=== PATIENT | male | born 1935 | race Caucasian/White ===

== ENCOUNTER → 2016-10-20 | Outpatient (CLI) | payer MEDICARE ==
[2016-10-20 13:05] LABS: AUTOMATED NEUTROPHIL # 5.3 TH/MM3 (1.8-7.7); BASOPHIL # 0.1 TH/MM3 (0-0.2); BASOPHIL % 0.6 % (0.0-2.0); EOSINOPHIL # 0.3 TH/MM3 (0-0.4); EOSINOPHIL % 3.8 % (0.0-4.0); HEMATOCRIT 32.4 % (39.0-51.0); HEMO FLAGS DIFF FINAL; MEAN CELL VOLUME 87.2 FL (80.0-100.0); MEAN CORPUSCULAR HEMOGLOBIN 29.5 PG (27.0-34.0); MEAN CORPUSCULAR HGB CONC 33.8 % (32.0-36.0); MONO % 8.5 % (0.0-8.0); NEUT % 63.1 % (16.0-70.0); PLATELET COUNT 172 TH/MM3 (150-450); RED BLOOD COUNT 3.72 MIL/MM3 (4.50-5.90); RED CELL DISTRIBUTION WIDTH 15.1 % (11.6-17.2); WHITE BLOOD COUNT 8.4 TH/MM3 (4.0-11.0)
[2016-10-20 13:18] LABS: ANION GAP 4 MEQ/L (5-15); AST (GOT) 26 U/L (15-37); BICARBONATE 31.1 MEQ/L (21.0-32.0); BLOOD UREA NITROGEN 17 MG/DL (7-18); CHLORIDE 105 MEQ/L (98-107); GLOMERULAR FILTRATION RATE 69 ML/MIN (>89); GLUCOSE,FASTING 89 MG/DL (74-99); POTASSIUM 4.7 MEQ/L (3.5-5.1); SODIUM (NA) 140 MEQ/L (136-145)
[2016-10-20 13:27] LABS: ALKALINE PHOSPHATASE 134 U/L (45-117); ALT (GPT) 19 U/L (12-78); HDL CHOLESTEROL 51.9 MG/DL (40.0-60.0); LDL CHOLESTEROL 40 MG/DL (0-99); TOTAL BILIRUBIN ADULT 0.6 MG/DL (0.2-1.0)
== END ==
LOC: PLAB 10:20
PROVIDERS: ATTEND Family Medicine
DX: I10 Essential (primary) hypertension (principal); E78.2 Mixed hyperlipidemia; D64.9 Anemia, unspecified
CPT/HCPCS: 36415; 80053; 80061; 85025

== ENCOUNTER → 2017-04-20 | Outpatient (CLI) | payer MEDICARE ==
[2017-04-20 12:43] LABS: AUTOMATED NEUTROPHIL # 5.3 TH/MM3 (1.8-7.7); BASOPHIL # 0.1 TH/MM3 (0-0.2); BASOPHIL % 0.7 % (0.0-2.0); EOSINOPHIL # 0.3 TH/MM3 (0-0.4); EOSINOPHIL % 3.8 % (0.0-4.0); HEMATOCRIT 27.2 % (39.0-51.0); HEMO FLAGS DIFF FINAL; LYMPH % 22.8 % (9.0-44.0); MEAN CORPUSCULAR HEMOGLOBIN 26.3 PG (27.0-34.0); MEAN CORPUSCULAR HGB CONC 32.9 % (32.0-36.0); MONO % 10.8 % (0.0-8.0); NEUT % 61.9 % (16.0-70.0); PLATELET COUNT 191 TH/MM3 (150-450); RED CELL DISTRIBUTION WIDTH 15.4 % (11.6-17.2); WHITE BLOOD COUNT 8.6 TH/MM3 (4.0-11.0)
[2017-04-20 12:53] LABS: ANION GAP 6 MEQ/L (5-15); BICARBONATE 26.6 MEQ/L (21.0-32.0); BLOOD UREA NITROGEN 17 MG/DL (7-18); CHLORIDE 104 MEQ/L (98-107); GLOMERULAR FILTRATION RATE 72 ML/MIN (>89); GLUCOSE,FASTING 87 MG/DL (74-99); POTASSIUM 4.8 MEQ/L (3.5-5.1); SODIUM (NA) 137 MEQ/L (136-145)
[2017-04-20 12:57] LABS: ALKALINE PHOSPHATASE 117 U/L (45-117); ALT (GPT) 17 U/L (12-78); AST (GOT) 29 U/L (15-37); HDL CHOLESTEROL 47.8 MG/DL (40.0-60.0); LDL CHOLESTEROL 22 MG/DL (0-99); TOTAL BILIRUBIN ADULT 0.5 MG/DL (0.2-1.0)
== END ==
LOC: PLAB 10:29
PROVIDERS: ATTEND Family Medicine
DX: E78.2 Mixed hyperlipidemia (principal); I10 Essential (primary) hypertension; R79.89 Other specified abnormal findings of blood chemistry; D64.9 Anemia, unspecified
CPT/HCPCS: 36415; 80053; 80061; 85025

== ENCOUNTER → 2017-05-04 | Outpatient (CLI) | payer MEDICARE ==
[2017-05-04 13:31] LABS: AUTOMATED NEUTROPHIL # 4.6 TH/MM3 (1.8-7.7); BASOPHIL # 0.1 TH/MM3 (0-0.2); BASOPHIL % 0.7 % (0.0-2.0); EOSINOPHIL # 0.2 TH/MM3 (0-0.4); EOSINOPHIL % 3.2 % (0.0-4.0); HEMATOCRIT 28.5 % (39.0-51.0); HEMO FLAGS DIFF FINAL; LYMPH % 24.2 % (9.0-44.0); LYMPHOCYTE # 1.8 TH/MM3 (1.0-4.8); MEAN CORPUSCULAR HEMOGLOBIN 25.2 PG (27.0-34.0); MEAN CORPUSCULAR HGB CONC 31.5 % (32.0-36.0); MONO % 10.2 % (0.0-8.0); NEUT % 61.7 % (16.0-70.0); PLATELET COUNT 186 TH/MM3 (150-450); RED BLOOD COUNT 3.56 MIL/MM3 (4.50-5.90); RED CELL DISTRIBUTION WIDTH 15.9 % (11.6-17.2); WHITE BLOOD COUNT 7.5 TH/MM3 (4.0-11.0)
== END ==
LOC: PLAB 10:24
PROVIDERS: ATTEND Family Medicine
DX: D64.9 Anemia, unspecified (principal)
CPT/HCPCS: 36415; 85025

== ENCOUNTER → 2017-05-25 | Outpatient (CLI) | payer MEDICARE ==
[2017-05-25 16:39] LABS: AUTOMATED NEUTROPHIL # 5.4 TH/MM3 (1.8-7.7); BASOPHIL # 0.1 TH/MM3 (0-0.2); BASOPHIL % 0.8 % (0.0-2.0); EOSINOPHIL # 0.3 TH/MM3 (0-0.4); EOSINOPHIL % 3.3 % (0.0-4.0); HEMATOCRIT 27.2 % (39.0-51.0); HEMOGLOBIN 8.6 GM/DL (13.0-17.0); LYMPH % 21.4 % (9.0-44.0); LYMPHOCYTE # 1.8 TH/MM3 (1.0-4.8); MEAN CELL VOLUME 79.3 FL (80.0-100.0); MEAN CORPUSCULAR HEMOGLOBIN 25.1 PG (27.0-34.0); MEAN CORPUSCULAR HGB CONC 31.6 % (32.0-36.0); MEAN PLATELET VOLUME 8.6 FL (7.0-11.0); MONO % 9.6 % (0.0-8.0); MONOCYTE # 0.8 TH/MM3 (0-0.9); NEUT % 64.9 % (16.0-70.0); PLATELET COUNT 185 TH/MM3 (150-450); RED BLOOD COUNT 3.43 MIL/MM3 (4.50-5.90); RED CELL DISTRIBUTION WIDTH 16.4 % (11.6-17.2); WHITE BLOOD COUNT 8.4 TH/MM3 (4.0-11.0)
== END ==
LOC: PLAB 11:29
PROVIDERS: ATTEND Family Medicine
DX: D64.9 Anemia, unspecified (principal)
CPT/HCPCS: 36415; 85025

== ENCOUNTER → 2017-06-08 | Outpatient (CLI) | payer MEDICARE ==
[2017-06-08 13:31] LABS: AUTOMATED NEUTROPHIL # 5.2 TH/MM3 (1.8-7.7); BASOPHIL # 0.1 TH/MM3 (0-0.2); BASOPHIL % 0.7 % (0.0-2.0); EOSINOPHIL # 0.4 TH/MM3 (0-0.4); EOSINOPHIL % 4.9 % (0.0-4.0); HEMATOCRIT 29.4 % (39.0-51.0); HEMOGLOBIN 9.3 GM/DL (13.0-17.0); LYMPH % 21.2 % (9.0-44.0); LYMPHOCYTE # 1.7 TH/MM3 (1.0-4.8); MEAN CELL VOLUME 79.8 FL (80.0-100.0); MEAN CORPUSCULAR HEMOGLOBIN 25.2 PG (27.0-34.0); MEAN CORPUSCULAR HGB CONC 31.6 % (32.0-36.0); MEAN PLATELET VOLUME 8.8 FL (7.0-11.0); MONO % 8.7 % (0.0-8.0); MONOCYTE # 0.7 TH/MM3 (0-0.9); NEUT % 64.5 % (16.0-70.0); PLATELET COUNT 180 TH/MM3 (150-450); RED BLOOD COUNT 3.69 MIL/MM3 (4.50-5.90); RED CELL DISTRIBUTION WIDTH 17.3 % (11.6-17.2)
== END ==
LOC: PLAB 11:21
PROVIDERS: ATTEND Physician Assistant Medical
DX: R19.5 Other fecal abnormalities (principal)
CPT/HCPCS: 36415; 85025

== ENCOUNTER → 2017-06-22 | Outpatient (CLI) | payer MEDICARE ==
[2017-06-22 13:39] LABS: CREATININE 1.06 MG/DL (0.60-1.30)
== END ==
LOC: PLAB 10:50
PROVIDERS: ATTEND Internal Medicine Gastroenterology
DX: I86.4 Gastric varices (principal)
CPT/HCPCS: 36415; 82565; 84520

== ENCOUNTER → 2017-07-30 | Outpatient (CLI) | payer MEDICARE ==
[2017-07-30 17:35] LABS: AUTOMATED NEUTROPHIL # 5.5 TH/MM3 (1.8-7.7); BASOPHIL # 0.1 TH/MM3 (0-0.2); BASOPHIL % 0.9 % (0.0-2.0); EOSINOPHIL # 0.3 TH/MM3 (0-0.4); EOSINOPHIL % 3.4 % (0.0-4.0); HEMATOCRIT 30.7 % (39.0-51.0); HEMOGLOBIN 9.8 GM/DL (13.0-17.0); LYMPH % 20.6 % (9.0-44.0); LYMPHOCYTE # 1.7 TH/MM3 (1.0-4.8); MEAN CELL VOLUME 80.6 FL (80.0-100.0); MEAN CORPUSCULAR HEMOGLOBIN 25.8 PG (27.0-34.0); MEAN PLATELET VOLUME 8.6 FL (7.0-11.0); MONOCYTE # 0.7 TH/MM3 (0-0.9); NEUT % 66.1 % (16.0-70.0); PLATELET COUNT 182 TH/MM3 (150-450); RED BLOOD COUNT 3.81 MIL/MM3 (4.50-5.90); RED CELL DISTRIBUTION WIDTH 19.2 % (11.6-17.2); WHITE BLOOD COUNT 8.3 TH/MM3 (4.0-11.0)
[2017-07-30 17:46] LABS: IRON (FE) 38 MCG/DL (65-175)
[2017-07-30 17:53] LABS: % SATURATION IRON PROFILE 9.1 % (20-50); FERRITIN 18 NG/ML (26-388); TOTAL IRON BINDING CAPACITY 416 MCG/DL (250-450)
== END ==
LOC: PLAB 14:39
PROVIDERS: ATTEND Family Medicine
DX: D64.9 Anemia, unspecified (principal)
CPT/HCPCS: 36415; 82728; 83540; 83550; 85025

== ENCOUNTER 2018-02-18 12:49 | Inpatient (IN) ==
[2018-02-18 14:50] LABS: Chloride 101 meq/L (98-107); Potassium 4.7 meq/L (3.5-5.1); Sodium 136 meq/L (136-145)
[2018-02-18 14:53] LABS: Baso # (Auto) 0.1 th/mm3 (0.0-0.2); Baso % (Auto) 0.6 % (0.0-2.0); Eos % (Auto) 0.2 % (0.0-4.0); Hematocrit 49.9 % (39.0-51.0); Hemoglobin 16.6 gm/dL (13.0-17.0); Lymph # (Auto) 1.5 th/mm3 (1.0-4.8); Lymph % (Auto) 6.9 % (9.0-44.0); Mean Corpuscular HGB Conc 33.3 % (32.0-36.0); Mean Corpuscular Hemoglobin 34.2 pg (27.0-34.0); Mean Corpuscular Volume 102.6 fL (80.0-100.0); Mean Platelet Volume 9.4 fL (7.0-11.0); Mono # (Auto) 1.4 th/mm3 (0.0-0.9); Mono % (Auto) 6.7 % (0.0-8.0); Neut # (Auto) 18.1 th/mm3 (1.8-7.7); Neut % (Auto) 85.6 % (16.0-70.0); Platelet Count 215 th/mm3 (150-450); Red Blood Count 4.86 mil/mm3 (4.50-5.90); Red Cell Distribution Width 12.9 % (11.6-17.2); White Blood Count 21.1 th/mm3 (4.0-11.0)
[2018-02-18 14:54] LABS: Albumin 3.8 g/dL (3.4-5.0); Anion Gap 13 meq/L (5-15); Blood Urea Nitrogen 27 mg/dL (7-18); Calcium 9.2 mg/dL (8.5-10.1); Carbon Dioxide 22.4 meq/L (21.0-32.0); Glucose,Random 128 mg/dL (74-106)
[2018-02-18 14:57] LABS: Alanine Aminotransferase 83 U/L (12-78); Aspartate Aminotransferase 112 U/L (15-37); Glomerular Filtration Rate 42 mL/min (>89)
[2018-02-18 15:00] LABS: Alkaline Phosphatase 280 U/L (45-117); Lipase 3378 U/L (73-393)
[2018-02-18] MEDS ORDERED: Sod Chloride 0.9% Inj 1,000 ML IV.SIG SCH ×2 (15:45→20:15)
--- NOTE | 2018-02-18 16:08 | ED ---
HPI General Chief Complaint: Abdominal Pain Stated Complaint: Evac/Abd pain Time Seen by Provider: 02/18/18 13:17 Source: patient Mode of arrival: ambulatory Limitations: no limitations History of Present Illness HPI narrative: Patient presents with normal stools, mild nausea and intermittent migratory abdominal pain. No chills or fever. No frequency urgency or dysuria. Related Data Home Medications Medication Instructions Recorded Confirmed cyanocobalamin (vitamin B-12) 1,000 mcg PO DAILY 02/18/18 02/18/18 [Vitamin B-12] ferrous sulfate [iron] 325 mg PO DAILY 02/18/18 02/18/18 metoprolol tartrate 50 mg PO DAILY 02/18/18 02/18/18 probenecid 500 mg PO DAILY 02/18/18 02/18/18 ranitidine HCl 150 mg PO BID 02/18/18 02/18/18 Allergies Allergy/AdvReac Type Severity Reaction Status Date / Time penicillin G Allergy Intermediate Rash Verified 02/18/18 13:18 Review of Systems ROS: all other systems reviewed are negative [facility] Family History Family History Other Family history of cancer Social History Social History Substance History: No History of Abuse Second Hand Smoke Exposure: No Smoking Status: Never smoker How Often Do You Have a Drink Containing Alcohol: Never Recent Travel in [place] within the Last 8 Weeks: No Recent Out of Country Travel within the Last 8 Weeks: No Immunization History Tetanus Immunization: Unsure Hx Influenza Vaccine This Season: No Course Consultations Consultation #1: Discussed with DR Garcia ---regarding admission for sepsis, cholecystitis pancreatitis, r/o choledocholithisis, ascending cholangiitis -- and transfer to [facility] w/ GS and GI consult --per [facility] MD will admit to [facility] step down with ongoing IV antibiotics and will consult GI and GS. Initial Documented Vital Signs Temperature 97.8 F 02/18/18 13:13 Pulse Rate 99 H 02/18/18 13:13 Respiratory Rate 16 02/18/18 13:13 Blood Pressure 119/78 02/18/18 13:13 Pulse Oximetry 93 L 02/18/18 13:13 Last Documented Vital Signs Temperature 96 F L 02/21/18 06:49 Pulse Rate 108 H 02/21/18 06:49 Respiratory Rate 18 02/21/18 06:49 Blood Pressure 156/83 H 02/21/18 06:49 Pulse Oximetry 94 L 02/21/18 06:49 Medical Decision Making [facility] Narrative Medical decision making narrative: 82-year-old male presents to the emergency department for evaluation of abdominal pain. Symptoms reportedly began last evening. Patient denies any fever or chills. Patient did have emesis x6 yesterday but denies hematemesis or coffee-ground emesis or bilious emesis. Patient denies black or tarry or bloody stool or diarrhea. Patient complains of infraumbilical bilateral quadrant abdominal pain. Patient states symptoms are worsened by movement or by sitting upright but presently resting supine is minimal discomfort less than 5 increase to 5/10 in intensity with activity. Patient denies dysuria frequency urgency or decreased urine output. Patient states past medical history is significant for gouty arthritis dyslipidemia hypertension has history of gastric varices anemia takes iron and B12 supplements GERD prostate cancer status post prostatectomy prior SD and coronary artery stent. Patient denies tobacco use or alcohol use. Patient denies fever or chills. Due to persistent pain finally came to the emergency room for further evaluation. Upon arrival patient was assessed and lab work was collected and imaging study was performed GENERAL: Well-nourished, well-developed patient. SKIN: Focused skin assessment warm/dry. HEAD: Normocephalic. EYES: No scleral icterus. No injection or drainage. NECK: Supple, trachea midline. No JVD or lymphadenopathy. CARDIOVASCULAR: Regular rate and rhythm without murmurs, gallops, or rubs. RESPIRATORY: Breath sounds equal bilaterally. No accessory muscle use. GASTROINTESTINAL: Abdomen soft, non-tender, nondistended. MUSCULOSKELETAL: No cyanosis, or edema. BACK: Nontender without obvious deformity. No CVA tenderness. Mild reproducible tenderness to bilateral lower quadrants without guarding or rebound Review of laboratory work identifies white count of 21,000 with left shift acute kidney injury with renal insufficiency BUN and creatinine are elevated BUN 27 creatinine 1.6 bicarb is in normal range LFTs are elevated as well with hyperbilirubinemia, bilirubin total is 3.2 elevated transaminases AST 112 ALT 83 and lipase is elevated at 3378. Urinalysis is positive for white blood cells and bacteria cultures indicated; CT abdomen pelvis is remarkable for gallbladder wall thickening with mild pericholecystic fluid and inflammatory changes around the duodenum and pancreatic head small amount of ascites although per reading radiologist does not appear to have acute pancreatitis by imaging. No free air. Patient will require admission for sepsis cholecystitis rule out ascending cholangitis pancreatitis rule out choledocholithiasis and UTI with acute renal insufficiency acute kidney injury. Patient has been informed that he will be admitted blood cultures obtained lactic acid obtained patient given bolus of normal saline patient is allergic to penicillin therefore Azactam has been ordered along with Flagyl and vancomycin. Medical Screen Exam Complete: Yes Emergency Medical Condition: Yes Differential Diagnosis Differential Diagnosis: Abdominal pain, gastritis, peptic ulcer disease, pancreatitis, cholecystitis, diverticulitis, colitis, ischemic colitis, UTI Medical Records Medical records reviewed: Yes I reviewed the patient's medical records. Lab Data Lab results reviewed: Yes I reviewed the patient's lab results. Result diagrams: 02/20/18 06:13 02/20/18 12:53 Lab Results 02/18/18 02/18/18 02/18/18 Range/Units 14:30 14:30 16:24 CBC w Diff Auto diff final WBC 21.1 H (4.0-11.0) th/mm3 RBC 4.86 (4.50-5.90) mil/mm3 Hgb 16.6 (13.0-17.0) gm/dL Hct 49.9 (39.0-51.0) % MCV 102.6 H (80.0-100.0) fL MCH 34.2 H (27.0-34.0) pg MCHC 33.3 (32.0-36.0) % RDW 12.9 (11.6-17.2) % Plt Count 215 (150-450) th/mm3 MPV 9.4 (7.0-11.0) fL Neut % (Auto) 85.6 H (16.0-70.0) % Lymph % (Auto) 6.9 L (9.0-44.0) % [place] % (Auto) 6.7 (0.0-8.0) % Eos % (Auto) 0.2 (0.0-4.0) % Baso % (Auto) 0.6 (0.0-2.0) % Neut # (Auto) 18.1 H (1.8-7.7) th/mm3 Lymph # (Auto) 1.5 (1.0-4.8) th/mm3 [place] # (Auto) 1.4 H (0.0-0.9) th/mm3 Eos # (Auto) 0.0 (0.0-0.4) th/mm3 Baso # (Auto) 0.1 (0.0-0.2) th/mm3 WBC Differential . Differential Comment . PT (9.8-11.6) sec INR Ratio APTT (24.3-30.1) sec Sodium 136 (136-145) meq/L Potassium 4.7 (3.5-5.1) meq/L Chloride 101 (98-107) meq/L Carbon Dioxide 22.4 (21.0-32.0) meq/L Anion Gap 13 (5-15) meq/L BUN 27 H (7-18) mg/dL Creatinine 1.60 H (0.60-1.30) mg/dL Estimated GFR 42 L (>89) mL/min POC Glucose (68-110) mg/dl Random Glucose 128 H (74-106) mg/dL Lactic Acid (0.4-2.0) mmol/L Calcium 9.2 (8.5-10.1) mg/dL Magnesium (1.5-2.5) mg/dL Total Bilirubin 3.2 H (0.2-1.0) mg/dL AST 112 H (15-37) U/L ALT 83 H (12-78) U/L Alkaline Phosphatase 280 H (45-117) U/L Total Protein 7.0 (6.4-8.2) g/dL Albumin 3.8 (3.4-5.0) g/dL Lipase 3378 H (73-393) U/L Urine Color Yellow (Yellw/Straw) Urine Clarity Slight H (Clear) Urine pH 5.5 (5.0-8.5) Ur Specific [place] Greater/equal 1.030 (1.002-1.035) Urine Protein 30 H (Neg-Trace) mg/dL Urine Glucose (UA) Negative (Negative) mg/dL Urine Ketones Trace H (Negative) mg/dL Urine Occult Blood Trace (Negative) Urine Nitrate Negative (Negative) Urine Bilirubin Small H (Negative) Urine Ictotest Positive H (Negative) Urine Urobilinogen 1.0 (Less than 2) mg/dL Ur Leukocyte Esterase Negative (Negative) Urine RBC 0-3 (0-3) /hpf Urine WBC 9-20 H (0-5) /hpf Ur Squamous Epith Cells 6-10 H (0-5) /hpf Hyaline Casts 11-30 H (0-3) /lpf WBC Casts 4-10 H (None) /lpf Micro UA Comment Culture indicated Ur Microscopic Review Microscopic reviewed Urine Culture Comments Culture indicated Hepatitis A IgM Ab (Nonreactive) Hep Bs Antigen (Nonreactive) Hep B Core IgM Ab (Nonreactive) Hep C IgG Ab (Nonreactive) 02/18/18 02/19/18 02/19/18 Range/Units 20:55 04:19 04:19 CBC w Diff Auto diff final WBC 16.6 H (4.0-11.0) th/mm3 RBC 4.05 L (4.50-5.90) mil/mm3 Hgb 14.3 D (13.0-17.0) gm/dL Hct 41.4 (39.0-51.0) % MCV 102.1 H (80.0-100.0) fL MCH 35.3 H (27.0-34.0) pg MCHC 34.6 (32.0-36.0) % RDW 13.0 (11.6-17.2) % Plt Count 124 L D (150-450) th/mm3 MPV 9.3 (7.0-11.0) fL Neut % (Auto) 88.6 H (16.0-70.0) % Lymph % (Auto) 6.3 L (9.0-44.0) % [place] % (Auto) 4.6 (0.0-8.0) % Eos % (Auto) 0.1 (0.0-4.0) % Baso % (Auto) 0.4 (0.0-2.0) % Neut # (Auto) 14.8 H (1.8-7.7) th/mm3 Lymph # (Auto) 1.0 (1.0-4.8) th/mm3 [place] # (Auto) 0.8 (0.0-0.9) th/mm3 Eos # (Auto) 0.0 (0.0-0.4) th/mm3 Baso # (Auto) 0.1 (0.0-0.2) th/mm3 WBC Differential . Differential Comment . PT (9.8-11.6) sec INR Ratio APTT (24.3-30.1) sec Sodium 139 (136-145) meq/L Potassium 4.2 (3.5-5.1) meq/L Chloride 108 H (98-107) meq/L Carbon Dioxide 20.5 L (21.0-32.0) meq/L Anion Gap 11 (5-15) meq/L BUN 25 H (7-18) mg/dL Creatinine 0.86 (0.60-1.30) mg/dL Estimated GFR 85 L (>89) mL/min POC Glucose (68-110) mg/dl Random Glucose 106 (74-106) mg/dL Lactic Acid 2.3 H (0.4-2.0) mmol/L Calcium 7.7 L D (8.5-10.1) mg/dL Magnesium (1.5-2.5) mg/dL Total Bilirubin 2.2 H (0.2-1.0) mg/dL AST 74 H (15-37) U/L ALT 56 (12-78) U/L Alkaline Phosphatase 205 H (45-117) U/L Total Protein 5.5 L D (6.4-8.2) g/dL Albumin 2.9 L D (3.4-5.0) g/dL Lipase 890 H (73-393) U/L Urine Color (Yellw/Straw) Urine Clarity (Clear) Urine pH (5.0-8.5) Ur Specific [place] (1.002-1.035) Urine Protein (Neg-Trace) mg/dL Urine Glucose (UA) (Negative) mg/dL Urine Ketones (Negative) mg/dL Urine Occult Blood (Negative) Urine Nitrate (Negative) Urine Bilirubin (Negative) Urine Ictotest (Negative) Urine Urobilinogen (Less than 2) mg/dL Ur Leukocyte Esterase (Negative) Urine RBC (0-3) /hpf Urine WBC (0-5) /hpf Ur Squamous Epith Cells (0-5) /hpf Hyaline Casts (0-3) /lpf WBC Casts (None) /lpf Micro UA Comment Ur Microscopic Review Urine Culture Comments Hepatitis A IgM Ab (Nonreactive) Hep Bs Antigen (Nonreactive) Hep B Core IgM Ab (Nonreactive) Hep C IgG Ab (Nonreactive) 02/19/18 02/19/18 02/19/18 Range/Units 09:05 09:20 11:15 CBC w Diff WBC (4.0-11.0) th/mm3 RBC (4.50-5.90) mil/mm3 Hgb (13.0-17.0) gm/dL Hct (39.0-51.0) % MCV (80.0-100.0) fL MCH (27.0-34.0) pg MCHC (32.0-36.0) % RDW (11.6-17.2) % Plt Count (150-450) th/mm3 MPV (7.0-11.0) fL Neut % (Auto) (16.0-70.0) % Lymph % (Auto) (9.0-44.0) % [place] % (Auto) (0.0-8.0) % Eos % (Auto) (0.0-4.0) % Baso % (Auto) (0.0-2.0) % Neut # (Auto) (1.8-7.7) th/mm3 Lymph # (Auto) (1.0-4.8) th/mm3 [place] # (Auto) (0.0-0.9) th/mm3 Eos # (Auto) (0.0-0.4) th/mm3 Baso # (Auto) (0.0-0.2) th/mm3 WBC Differential Differential Comment PT 14.5 H (9.8-11.6) sec INR 1.4 Ratio APTT 25.7 (24.3-30.1) sec Sodium (136-145) meq/L Potassium (3.5-5.1) meq/L Chloride (98-107) meq/L Carbon Dioxide (21.0-32.0) meq/L Anion Gap (5-15) meq/L BUN (7-18) mg/dL Creatinine (0.60-1.30) mg/dL Estimated GFR (>89) mL/min POC Glucose 104 (68-110) mg/dl Random Glucose (74-106) mg/dL Lactic Acid (0.4-2.0) mmol/L Calcium (8.5-10.1) mg/dL Magnesium (1.5-2.5) mg/dL Total Bilirubin (0.2-1.0) mg/dL AST (15-37) U/L ALT (12-78) U/L Alkaline Phosphatase (45-117) U/L Total Protein (6.4-8.2) g/dL Albumin (3.4-5.0) g/dL Lipase (73-393) U/L Urine Color (Yellw/Straw) Urine Clarity (Clear) Urine pH (5.0-8.5) Ur Specific [place] (1.002-1.035) Urine Protein (Neg-Trace) mg/dL Urine Glucose (UA) (Negative) mg/dL Urine Ketones (Negative) mg/dL Urine Occult Blood (Negative) Urine Nitrate (Negative) Urine Bilirubin (Negative) Urine Ictotest (Negative) Urine Urobilinogen (Less than 2) mg/dL Ur Leukocyte Esterase (Negative) Urine RBC (0-3) /hpf Urine WBC (0-5) /hpf Ur Squamous Epith Cells (0-5) /hpf Hyaline Casts (0-3) /lpf WBC Casts (None) /lpf Micro UA Comment Ur Microscopic Review Urine Culture Comments Hepatitis A IgM Ab Nonreactive (Nonreactive) Hep Bs Antigen Nonreactive (Nonreactive) Hep B Core IgM Ab Nonreactive (Nonreactive) Hep C IgG Ab Nonreactive (Nonreactive) 02/19/18 02/20/18 02/20/18 Range/Units 20:00 06:13 06:13 CBC w Diff Auto diff final WBC 14.4 H (4.0-11.0) th/mm3 RBC 3.74 L (4.50-5.90) mil/mm3 Hgb 13.1 (13.0-17.0) gm/dL Hct 37.4 L (39.0-51.0) % MCV 99.9 (80.0-100.0) fL MCH 35.0 H (27.0-34.0) pg MCHC 35.0 (32.0-36.0) % RDW 13.2 (11.6-17.2) % Plt Count 118 L (150-450) th/mm3 MPV 8.8 (7.0-11.0) fL Neut % (Auto) 85.7 H (16.0-70.0) % Lymph % (Auto) 7.4 L (9.0-44.0) % [place] % (Auto) 5.7 (0.0-8.0) % Eos % (Auto) 0.2 (0.0-4.0) % Baso % (Auto) 1.0 (0.0-2.0) % Neut # (Auto) 12.4 H (1.8-7.7) th/mm3 Lymph # (Auto) 1.1 (1.0-4.8) th/mm3 [place] # (Auto) 0.8 (0.0-0.9) th/mm3 Eos # (Auto) 0.0 (0.0-0.4) th/mm3 Baso # (Auto) 0.1 (0.0-0.2) th/mm3 WBC Differential . Differential Comment . PT (9.8-11.6) sec INR Ratio APTT (24.3-30.1) sec Sodium 142 (136-145) meq/L Potassium 3.9 (3.5-5.1) meq/L Chloride 111 H (98-107) meq/L Carbon Dioxide 21.4 (21.0-32.0) meq/L Anion Gap 10 (5-15) meq/L BUN 21 H (7-18) mg/dL Creatinine 0.68 (0.60-1.30) mg/dL Estimated GFR Greater than 89 (>89) mL/min POC Glucose 83 (68-110) mg/dl Random Glucose 84 (74-106) mg/dL Lactic Acid (0.4-2.0) mmol/L Calcium 7.5 L (8.5-10.1) mg/dL Magnesium 2.2 (1.5-2.5) mg/dL Total Bilirubin 1.9 H (0.2-1.0) mg/dL AST 46 H (15-37) U/L ALT 38 (12-78) U/L Alkaline Phosphatase 195 H (45-117) U/L Total Protein 5.3 L (6.4-8.2) g/dL Albumin 2.7 L (3.4-5.0) g/dL Lipase (73-393) U/L Urine Color (Yellw/Straw) Urine Clarity (Clear) Urine pH (5.0-8.5) Ur Specific [place] (1.002-1.035) Urine Protein (Neg-Trace) mg/dL Urine Glucose (UA) (Negative) mg/dL Urine Ketones (Negative) mg/dL Urine Occult Blood (Negative) Urine Nitrate (Negative) Urine Bilirubin (Negative) Urine Ictotest (Negative) Urine Urobilinogen (Less than 2) mg/dL Ur Leukocyte Esterase (Negative) Urine RBC (0-3) /hpf Urine WBC (0-5) /hpf Ur Squamous Epith Cells (0-5) /hpf Hyaline Casts (0-3) /lpf WBC Casts (None) /lpf Micro UA Comment Ur Microscopic Review Urine Culture Comments Hepatitis A IgM Ab (Nonreactive) Hep Bs Antigen (Nonreactive) Hep B Core IgM Ab (Nonreactive) Hep C IgG Ab (Nonreactive) 02/20/18 02/20/18 02/20/18 Range/Units 11:42 12:53 17:03 CBC w Diff WBC (4.0-11.0) th/mm3 RBC (4.50-5.90) mil/mm3 Hgb (13.0-17.0) gm/dL Hct (39.0-51.0) % MCV (80.0-100.0) fL MCH (27.0-34.0) pg MCHC (32.0-36.0) % RDW (11.6-17.2) % Plt Count (150-450) th/mm3 MPV (7.0-11.0) fL Neut % (Auto) (16.0-70.0) % Lymph % (Auto) (9.0-44.0) % [place] % (Auto) (0.0-8.0) % Eos % (Auto) (0.0-4.0) % Baso % (Auto) (0.0-2.0) % Neut # (Auto) (1.8-7.7) th/mm3 Lymph # (Auto) (1.0-4.8) th/mm3 [place] # (Auto) (0.0-0.9) th/mm3 Eos # (Auto) (0.0-0.4) th/mm3 Baso # (Auto) (0.0-0.2) th/mm3 WBC Differential Differential Comment PT (9.8-11.6) sec INR Ratio APTT (24.3-30.1) sec Sodium 141 (136-145) meq/L Potassium 3.8 (3.5-5.1) meq/L Chloride 111 H (98-107) meq/L Carbon Dioxide 19.3 L (21.0-32.0) meq/L Anion Gap 11 (5-15) meq/L BUN 19 H (7-18) mg/dL Creatinine 0.72 (0.60-1.30) mg/dL Estimated GFR Greater than 89 (>89) mL/min POC Glucose 79 87 (68-110) mg/dl Random Glucose 113 H (74-106) mg/dL Lactic Acid (0.4-2.0) mmol/L Calcium 7.7 L (8.5-10.1) mg/dL Magnesium (1.5-2.5) mg/dL Total Bilirubin 1.8 H (0.2-1.0) mg/dL AST 42 H (15-37) U/L ALT 37 (12-78) U/L Alkaline Phosphatase 204 H (45-117) U/L Total Protein 5.5 L (6.4-8.2) g/dL Albumin 2.8 L (3.4-5.0) g/dL Lipase 196 (73-393) U/L Urine Color (Yellw/Straw) Urine Clarity (Clear) Urine pH (5.0-8.5) Ur Specific [place] (1.002-1.035) Urine Protein (Neg-Trace) mg/dL Urine Glucose (UA) (Negative) mg/dL Urine Ketones (Negative) mg/dL Urine Occult Blood (Negative) Urine Nitrate (Negative) Urine Bilirubin (Negative) Urine Ictotest (Negative) Urine Urobilinogen (Less than 2) mg/dL Ur Leukocyte Esterase (Negative) Urine RBC (0-3) /hpf Urine WBC (0-5) /hpf Ur Squamous Epith Cells (0-5) /hpf Hyaline Casts (0-3) /lpf WBC Casts (None) /lpf Micro UA Comment Ur Microscopic Review Urine Culture Comments Hepatitis A IgM Ab (Nonreactive) Hep Bs Antigen (Nonreactive) Hep B Core IgM Ab (Nonreactive) Hep C IgG Ab (Nonreactive) 02/20/18 Range/Units 20:49 CBC w Diff WBC (4.0-11.0) th/mm3 RBC (4.50-5.90) mil/mm3 Hgb (13.0-17.0) gm/dL Hct (39.0-51.0) % MCV (80.0-100.0) fL MCH (27.0-34.0) pg MCHC (32.0-36.0) % RDW (11.6-17.2) % Plt Count (150-450) th/mm3 MPV (7.0-11.0) fL Neut % (Auto) (16.0-70.0) % Lymph % (Auto) (9.0-44.0) % [place] % (Auto) (0.0-8.0) % Eos % (Auto) (0.0-4.0) % Baso % (Auto) (0.0-2.0) % Neut # (Auto) (1.8-7.7) th/mm3 Lymph # (Auto) (1.0-4.8) th/mm3 [place] # (Auto) (0.0-0.9) th/mm3 Eos # (Auto) (0.0-0.4) th/mm3 Baso # (Auto) (0.0-0.2) th/mm3 WBC Differential Differential Comment PT (9.8-11.6) sec INR Ratio APTT (24.3-30.1) sec Sodium (136-145) meq/L Potassium (3.5-5.1) meq/L Chloride (98-107) meq/L Carbon Dioxide (21.0-32.0) meq/L Anion Gap (5-15) meq/L BUN (7-18) mg/dL Creatinine (0.60-1.30) mg/dL Estimated GFR (>89) mL/min POC Glucose 97 (68-110) mg/dl Random Glucose (74-106) mg/dL Lactic Acid (0.4-2.0) mmol/L Calcium (8.5-10.1) mg/dL Magnesium (1.5-2.5) mg/dL Total Bilirubin (0.2-1.0) mg/dL AST (15-37) U/L ALT (12-78) U/L Alkaline Phosphatase (45-117) U/L Total Protein (6.4-8.2) g/dL Albumin (3.4-5.0) g/dL Lipase (73-393) U/L Urine Color (Yellw/Straw) Urine Clarity (Clear) Urine pH (5.0-8.5) Ur Specific [place] (1.002-1.035) Urine Protein (Neg-Trace) mg/dL Urine Glucose (UA) (Negative) mg/dL Urine Ketones (Negative) mg/dL Urine Occult Blood (Negative) Urine Nitrate (Negative) Urine Bilirubin (Negative) Urine Ictotest (Negative) Urine Urobilinogen (Less than 2) mg/dL Ur Leukocyte Esterase (Negative) Urine RBC (0-3) /hpf Urine WBC (0-5) /hpf Ur Squamous Epith Cells (0-5) /hpf Hyaline Casts (0-3) /lpf WBC Casts (None) /lpf Micro UA Comment Ur Microscopic Review Urine Culture Comments Hepatitis A IgM Ab (Nonreactive) Hep Bs Antigen (Nonreactive) Hep B Core IgM Ab (Nonreactive) Hep C IgG Ab (Nonreactive) Imaging Data Radiologist's impression: Abdomen X-Ray 02/18/18 16:09 CONCLUSION: Unremarkable bowel gas pattern. Abdomen/Pelvis CT 02/18/18 18:05 CONCLUSION: 1. Right upper quadrant acute inflammatory changes that appear to represent cholecystitis, duodenitis or a combination of the two. 2. There is small ascites. Nothing organized or loculated. 3. No bowel obstruction. 4. Florid diverticulosis of the sigmoid colon without evidence of diverticulitis. 5. 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 No aneurysm. Gallbladder Ultrasound 02/18/18 20:35 CONCLUSION: Abnormal gallbladder with wall thickening and pericholecystic fluid. Acute cholecystitis possible in the proper clinical setting. No stones are demonstrated. No evidence of biliary obstruction. Cholangiopancreatography MRI 02/19/18 00:00 CONCLUSION: 1. Diffuse dilatation of the common bile duct measuring 9 mm with possible filling defect in the distal common bile duct. ERCP would be helpful for further evaluation and possible treatment if clinically indicated. 2. Mildly thickened gallbladder wall with minimal pericholecystic fluid. No definite gallstone identified. 3. Minimal ascites. Discharge Plan Discharge Disposition Patient Disposition: 30 Still Patient Discharge Condition Condition: Stable Discharge Details Diagnosis: Sepsis, Cholecystitis, UTI (urinary tract infection), Acute kidney insufficiency, Pancreatitis Physicians Team ED Provider: Paul Corey Primary Care Provider: Terra Patel Attending Provider: Miguel Navarrete Other Providers: Jose Washington ; Sivakumar Reddy Status ED Status: Left Department Discharge Information Discharge Date/Time: 02/18/18 22:42
[2018-02-18 16:31] LABS: Bilirubin,Urine Small (Negative); Color,Urine Yellow (Yellw/Straw); Glucose,Urine (UA) Negative (Negative); Leukocyte Esterase,Urine Negative (Negative); Nitrite,Urine Negative (Negative); PH,Urine 5.5 (5.0-8.5); Specific Gravity,Urine Greater/Equal 1.030 (1.002-1.035)
[2018-02-18 16:35] LABS: Ictotest,Urine Positive (Negative)
[2018-02-18 16:36] LABS: Clarity,Urine Slight (Clear)
[2018-02-18 16:37] LABS: RBC,Urine 0-3 /hpf (0-3)
--- NOTE | 2018-02-18 16:54 | XR ---
EXAM DATE: 02/18/2018 4:09 PM EDT AGE/SEX: 82 years / Male INDICATIONS: Abdominal pain, nausea, and vomiting. CLINICAL DATA: This is the patient's initial encounter. Patient reports that signs and symptoms have been present for 1 day and indicates a pain score of 2/10. MEDICAL/SURGICAL HISTORY: . Prostate. Prostatectomy. COMPARISON: No prior exams available for comparison. FINDINGS: 2 AP supine views of the abdomen and pelvis were obtained and demonstrate gas and stool noted segmen tally in the colon. There is no evidence of free air or mass effect on the supine study. There are mu ltiple surgical clips and samreen in the pelvis. Vascular calcifications are present. The bony struct ures are intact with diffuse osteopenia. Lung bases are clear. CONCLUSION: Unremarkable bowel gas pattern. Electronically signed by: Danilo Haji MD 02/18/2018 4:53 PM EDT
--- NOTE | 2018-02-18 18:48 | CT ---
EXAM DATE: 02/18/2018 6:23 PM EDT AGE/SEX: 82 years / Male INDICATIONS: Bilateral lower quadrant pain. Nausea and vomiting. CLINICAL DATA: This is the patient's initial encounter. Patient reports that signs and symptoms have been present for 1 day and indicates a pain score of 9/10. MEDICAL/SURGICAL HISTORY: Gastroesophageal reflux disease. Myocardial infarction. Carcinoma, prostatic. Coronary artery stent. RADIATION DOSE: 9.67 CTDI (mGy) COMPARISON: POI, CT ABDOMEN W/ CONTRAST, 06/30/2017. POI, MR ABDOMEN W/ AND W/O CONTRAST, 018. . TECHNIQUE: Multiple contiguous axial images were obtained through the abdomen. Images were obtained using multiple row detector helical technique. Using automated exposure control and adjustment of the mA and/or kV according to patient size, radiation dose was kept as low as reasonably achievable to o btain optimal diagnostic quality images. DICOM format image data is available electronically for rev iew and comparison. FINDINGS: Small ascites has developed. Nothing organized or loculated. Inflammatory changes are seen in the por ta hepatis region and there appears to be some wall thickening of the duodenum and also some perichol ecystic fluid and gallbladder wall thickening. There is edema around the head of the pancreas but I d on't believe there is acute pancreatitis. There is severe diverticulosis of the distal colon. No evidence of diverticulitis. No focal hepatic lesion. Noncontrast appearance of the spleen, adrenal glands and kidneys within norm al limits. Extremely atherosclerotic abdominal aorta. There is a short segment dissection flap in the proximal infrarenal section, series 2 image 33, that is chronic. There are no acute inflammatory manjeet nges around the aorta. Trace atelectasis seen of the visualized lung bases. No acute bony abnormality demonstrated. CONCLUSION: 1. Right upper quadrant acute inflammatory changes that appear to represent cholecystitis, duodeniti s or a combination of the two. 2. There is small ascites. Nothing organized or loculated. 3. No bowel obstruction. 4. Florid diverticulosis of the sigmoid colon without evidence of diverticulitis. 5. 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 No aneurysm. Electronically signed by: Morro Garcia MD 02/18/2018 6:47 PM EDT
[2018-02-18] MEDS ORDERED: Aztreonam Inj 2 GM in Sodium Chloride 0.9% Inj 100 ML IV.SIG ONE (20:10)
[2018-02-18] MEDS ORDERED: Vancomycin Inj 1,000 MG in Sodium Chlor 0.9% Inj 250 ML IV.SIG ONE (20:20)
[2018-02-18] MEDS ORDERED: Acetaminophen 325 MG Tablet PO PRN (20:36)
[2018-02-18] MEDS ORDERED: Bisacodyl 10 MG Supp RECTAL PRN (20:36)
[2018-02-18] MEDS: Senna/Docusate Sodium 8.6/50 MG Tablet PO SCH (21:37)
[2018-02-18] MEDS: Sod Chloride 0.9% Inj 1,000 ML IV.CONT SCH (21:54)
--- NOTE | 2018-02-18 22:37 | US ---
EXAM DATE: 02/18/2018 8:35 PM EDT AGE/SEX: 82 years / Male INDICATIONS: Right upper quadrant pain. CLINICAL DATA: This is the patient's initial encounter. Patient reports that signs and symptoms have been present for 1 day and indicates a pain score of 9/10. MEDICAL/SURGICAL HISTORY: Anemia. Hypertension. Gastroesophageal reflux disease. Hyperlipide jennifer. Gout. Prostate cancer. Myocardial infarction. . Heart artery stent. Prostate surgery. COMPARISON: [facility], CT ABDOMEN & PELVIS W/O CONTRAST, 02/18/2018. . MEASUREMENTS: Liver:__ 14.9 cm. Common Bile Duct:__ 6mm. FINDINGS: Liver: Normal echotexture without focal lesion or ductal dilatation. Portal Vein: Hepatopedal flow seen in portal vein. Common Duct: No intraluminal mass or stone visualized. Gallbladder: Wall measures approximate 6 mm. There is pericholecystic fluid. No stones are seen. No perceptible sonographic Escobedo's sign. Pancreas: Not well visualized. Right Kidney: Normal echotexture and cortical thickness. No mass or hydronephrosis. Other: None. CONCLUSION: Abnormal gallbladder with wall thickening and pericholecystic fluid. Acute cholecystitis possible in the proper clinical setting. No stones are demonstrated. No evidence of biliary obstructi on. Electronically signed by: Morro Garcia MD 02/18/2018 10:36 PM EDT
[2018-02-19] MEDS: Aztreonam Inj 2 GM in Sodium Chloride 0.9% Inj 100 ML IV.SIG SCH ×3 (03:21→20:53)
[2018-02-19 05:49] LABS: Baso # (Auto) 0.1 th/mm3 (0.0-0.2); Baso % (Auto) 0.4 % (0.0-2.0); Eos % (Auto) 0.1 % (0.0-4.0); Hematocrit 41.4 % (39.0-51.0); Hemoglobin 14.3 gm/dL (13.0-17.0); Lymph % (Auto) 6.3 % (9.0-44.0); Mean Corpuscular HGB Conc 34.6 % (32.0-36.0); Mean Corpuscular Hemoglobin 35.3 pg (27.0-34.0); Mean Corpuscular Volume 102.1 fL (80.0-100.0); Mean Platelet Volume 9.3 fL (7.0-11.0); Mono # (Auto) 0.8 th/mm3 (0.0-0.9); Mono % (Auto) 4.6 % (0.0-8.0); Neut # (Auto) 14.8 th/mm3 (1.8-7.7); Neut % (Auto) 88.6 % (16.0-70.0); Platelet Count 124 th/mm3 (150-450); Red Blood Count 4.05 mil/mm3 (4.50-5.90); White Blood Count 16.6 th/mm3 (4.0-11.0)
[2018-02-19 05:54] LABS: Chloride 108 meq/L (98-107); Potassium 4.2 meq/L (3.5-5.1); Sodium 139 meq/L (136-145)
[2018-02-19 06:03] LABS: Alanine Aminotransferase 56 U/L (12-78); Albumin 2.9 g/dL (3.4-5.0); Alkaline Phosphatase 205 U/L (45-117); Anion Gap 11 meq/L (5-15); Aspartate Aminotransferase 74 U/L (15-37); Blood Urea Nitrogen 25 mg/dL (7-18); Calcium 7.7 mg/dL (8.5-10.1); Carbon Dioxide 20.5 meq/L (21.0-32.0); Glomerular Filtration Rate 85 mL/min (>89); Glucose,Random 106 mg/dL (74-106); Lipase 890 U/L (73-393); Total Protein 5.5 g/dL (6.4-8.2)
[2018-02-19] MEDS: Sod Chloride 0.9% Inj 1,000 ML IV.CONT SCH ×2 (06:03→14:53)
[2018-02-19] MEDS ORDERED: Morphine Sulfate Inj 2 MG/ML Vial IV.PUSH PRN (07:56)
[2018-02-19] MEDS ORDERED: Dextrose 50% in Water 50 ML Vial IV.PUSH PRN (08:30)
[2018-02-19] MEDS: Famotidine PF Inj 20 MG/2 ML Vial IV.PUSH SCH ×2 (09:43→20:54)
[2018-02-19] MEDS: Senna/Docusate Sodium 8.6/50 MG Tablet PO SCH ×2 (09:45→20:54)
[2018-02-19 09:53] LABS: Activated Partial Thrombo Time 25.7 sec (24.3-30.1); INR 1.4 Ratio; Prothrombin Time 14.5 sec (9.8-11.6)
--- NOTE | 2018-02-19 10:29 | P.CONGS ---
[facility] Gen Surgery Consult Note Consult date: 02/19/18 Reason for consult: abdominal pain Requesting physician: Johanny Garcia Narrative: This is a 82 year old male with a past medical history of anemia, hypertension, gastric varices, myocardial infarction with stent placement in 2005, prostate cancer and diverticulosis. The patient was in his usual state of health until Thursday afternoon when he developed acute onset of abdominal pain with associated nausea and vomiting after eating a blueberry muffin with some mixed fruit (cantaloupe, strawberries and bananas). The patient's also had the same meal and she is not sick. He reports he had about 6 episodes of emesis. The patient came to the ED when the pain did not subside. A CT abdomen/pelvis was obtained which showed RIGHT upper quadrant acute inflammatory changes that possible represent cholecystitis. An US was obtained which shows gallbladder wall thickening and pericholecystic fluid; there is no evidence of biliary obstruction. His liver enzymes are elevated. A General Surgery consultation has been requested. Review of Systems All other systems reviewed negative except as stated in [facility] - History History Provided By: Patient - Medical History Medical History: Medical History (Last Reviewed 02/19/18 @ 11:59 by LIANET Doty) Anemia Essential hypertension GERD (gastroesophageal reflux disease) Gastric varices Gout History of [place] (myocardial infarction) History of prostate cancer Hyperlipidemia - Surgical History Surgical History: Surgical History (Last Reviewed 02/19/18 @ 11:59 by LIANET Doty) History of heart artery stent History of prostate surgery - Family History Family History: Family History (Last Updated 02/19/18 @ 16:00 by Miguel Navarrete MD) Other Family history of cancer - Tobacco History Second Hand Smoke Exposure: No Smoking Status: Never smoker - Alcohol History How Often Do You Have a Drink Containing Alcohol: Never - Substance Use History Substance History: No History of Abuse - Travel History Recent Travel in the [place] Within the Last 8 Weeks: No Recent Travel Out of the Country Within the Last 8 Weeks: No - Immunization History Tetanus Immunization: Unsure Hx Influenza Vaccine This Season: No Medications and Allergies Allergies Allergy/AdvReac Type Severity Reaction Status Date / Time penicillin G Allergy Intermediate Rash Verified 02/18/18 13:18 Home Medications Medication Instructions Recorded Confirmed Type cyanocobalamin (vitamin B-12) 1,000 mcg PO DAILY 02/18/18 02/18/18 History [Vitamin B-12] ferrous sulfate [iron] 325 mg PO DAILY 02/18/18 02/18/18 History metoprolol tartrate 50 mg PO DAILY 02/18/18 02/18/18 History probenecid 500 mg PO DAILY 02/18/18 02/18/18 History ranitidine HCl 150 mg PO BID 02/18/18 02/18/18 History Active Medications: Active Medications Acetaminophen (Tylenol) 650 mg PO Q4H PRN PRN Reason: Temp > 100.4 Al Hydroxide/Mg Hydroxide (Milk Of Magnesia Liq) 30 ml PO Q12H PRN PRN Reason: Mild Constipation Bisacodyl (Dulcolax Supp) 10 mg RECTAL DAILY PRN PRN Reason: SEVERE CONSITIPATION Dextrose (D50w Vial) 50 ml IV.PUSH UNSCH PRN PRN Reason: PER HYPOGLYCEMIA PROTOCOL Famotidine (Pepcid Pf Inj) 20 mg IV.PUSH Q12HR DOTTY Last Admin: 02/19/18 09:43 Dose: 20 mg Glucagon (Glucagon Inj) 1 mg OTHER PRN PRN PRN Reason: for Hypoglycemia Protocol Sodium Chloride (Ns Inj) 1,000 mls @ 0 mls/hr IV.SIG BOLUS DOTTY Last Infusion: 02/18/18 16:27 Dose: Infused Sodium Chloride (Ns Inj) 1,000 mls @ 0 mls/hr IV.SIG BOLUS DOTTY Last Infusion: 02/18/18 21:55 Dose: Infused Aztreonam 2 gm/ Sodium (Chloride) 100 mls @ 200 mls/hr IV.SIG Q8H DOTTY Last Infusion: 02/19/18 03:51 Dose: Infused Metronidazole/Sodium Chloride (Flagyl 500 Mg Inj) 100 mls @ 100 mls/hr IV.SIG Q8H DOTTY Last Infusion: 02/19/18 05:58 Dose: Infused Sodium Chloride (Ns Inj) 1,000 mls @ 70 mls/hr IV.CONT .[id number] DOTTY Last Admin: 02/19/18 06:03 Dose: 75 mls/hr Lactulose (Lactulose Liq) 30 ml PO DAILY PRN PRN Reason: SEVERE CONSITIPATION Morphine Sulfate (Morphine Inj) 2 mg IV.PUSH Q3H PRN PRN Reason: pain 1- 10 while NPO Ondansetron HCl (Zofran Inj) 4 mg IV.PUSH Q6H PRN PRN Reason: NAUSEA OR VOMITING Senna/Docusate Sodium (Alona-Colace) 1 tab PO BID [facility] Last Admin: 02/19/18 09:45 Dose: Not Given Sennosides (Senokot) 17.2 mg PO Q12H PRN PRN Reason: Moderate Constipation Exam Vital signs: Vital Signs 02/18/18 13:13 02/18/18 20:05 02/18/18 21:30 Temperature 97.8 F 98.3 F Pulse Rate 99 H 102 H 94 H Respiratory Rate 16 20 20 Blood Pressure 119/78 120/74 128/70 Pulse Oximetry 93 L 96 96 02/18/18 22:41 02/18/18 23:11 02/19/18 00:00 Temperature 98.1 F Pulse Rate 95 H 106 H 97 H Respiratory Rate 18 29 H 16 Blood Pressure 117/64 170/91 H Pulse Oximetry 95 92 L 5 L 02/19/18 03:43 Temperature 98.5 F Pulse Rate 100 H Respiratory Rate 25 H Blood Pressure 134/68 Pulse Oximetry 94 L Intake & Output 02/18/18 02/19/18 02/19/18 18:59 06:59 18:59 Intake Total 1000 / 1000 2391 / 2391 Balance 1000 / 1000 2391 / 2391 Weight 65.771 kg 64.6 kg Intake: IV 1000 / 1000 2391 / 2391 NS Inj 1,000 ML @ 75 mls/hr IV. 741 / 741 CONT .[id number] DOTTY Rx#: [id number] Azactam Inj 2 GM In NS Inj 100 200 / 200 ML @ 200 mls/hr IV.SIG Q8H DOTTY Rx#:[id number] NS Inj 1,000 ML @ Wide Open IV. 1000 / 1000 1000 / 1000 SIG BOLUS DOTTY Rx#:[id number] Vancomycin Inj 1,000 MG In NS 250 / 250 Inj 250 ML @ 250 mls/hr IV.SIG ONCE ONE Rx#:[id number] Flagyl 500 MG Inj 100 ML @ 100 200 / 200 mls/hr IV.SIG Q8H DOTTY Rx#: [id number] Oral 0 / 0 Other: # Urine Diapers 2 Date of Last Bowel Movement 02/18/18 Weight On Admission 64.6 kg Narrative: GENERAL: Very pleasant 82 year old male resting in bed in no acute distress. SKIN: Warm and dry. HEAD: Atraumatic. Normocephalic. EYES: Pupils equal and round. No scleral icterus. No injection or drainage. ENT: No nasal bleeding or discharge. Mucous membranes pink and moist. NECK: Trachea midline. CARDIOVASCULAR: Regular rate and rhythm. RESPIRATORY: No accessory muscle use. Clear to auscultation. Breath sounds equal bilaterally. GASTROINTESTINAL: Abdomen soft, nondistended. Tender in RUQ on palpation. He has a low midline incision that is well healed. No hernias felt. MUSCULOSKELETAL: Extremities without clubbing, cyanosis, or edema. No obvious deformities. NEUROLOGICAL: Awake and alert. No obvious cranial nerve deficits. Motor grossly within normal limits. Five out of 5 muscle strength in the arms and legs. Normal speech. PSYCHIATRIC: Appropriate mood and affect; insight and judgment normal. Results - Labs 02/23/18 05:17 02/23/18 05:17 Laboratory Results - last 24 hr 02/18/18 02/18/18 02/18/18 14:30 14:30 16:24 CBC w Diff Auto diff final WBC 21.1 H RBC 4.86 Hgb 16.6 Hct 49.9 MCV 102.6 H MCH 34.2 H MCHC 33.3 RDW 12.9 Plt Count 215 MPV 9.4 Neut % (Auto) 85.6 H Lymph % (Auto) 6.9 L Wake % (Auto) 6.7 Eos % (Auto) 0.2 Baso % (Auto) 0.6 Neut # (Auto) 18.1 H Lymph # (Auto) 1.5 Wake # (Auto) 1.4 H Eos # (Auto) 0.0 Baso # (Auto) 0.1 WBC Differential . Differential Comment . PT INR APTT Sodium 136 Potassium 4.7 Chloride 101 Carbon Dioxide 22.4 Anion Gap 13 BUN 27 H Creatinine 1.60 H Estimated GFR 42 L POC Glucose Random Glucose 128 H Lactic Acid Calcium 9.2 Total Bilirubin 3.2 H AST 112 H ALT 83 H Alkaline Phosphatase 280 H Total Protein 7.0 Albumin 3.8 Lipase 3378 H Urine Color Yellow Urine Clarity Slight H Urine pH 5.5 Ur Specific [place] Greater/equal 1.030 Urine Protein 30 H Urine Glucose (UA) Negative Urine Ketones Trace H Urine Occult Blood Trace Urine Nitrate Negative Urine Bilirubin Small H Urine Ictotest Positive H Urine Urobilinogen 1.0 Ur Leukocyte Esterase Negative Urine RBC 0-3 Urine WBC 9-20 H Ur Squamous Epith Cells 6-10 H Hyaline Casts 11-30 H WBC Casts 4-10 H Micro UA Comment Culture indicated Ur Microscopic Review Microscopic reviewed Urine Culture Comments Culture indicated 02/18/18 02/19/18 02/19/18 20:55 04:19 04:19 CBC w Diff Auto diff final WBC 16.6 H RBC 4.05 L Hgb 14.3 D Hct 41.4 MCV 102.1 H MCH 35.3 H MCHC 34.6 RDW 13.0 Plt Count 124 L D MPV 9.3 Neut % (Auto) 88.6 H Lymph % (Auto) 6.3 L [place] % (Auto) 4.6 Eos % (Auto) 0.1 Baso % (Auto) 0.4 Neut # (Auto) 14.8 H Lymph # (Auto) 1.0 Wake # (Auto) 0.8 Eos # (Auto) 0.0 Baso # (Auto) 0.1 WBC Differential . Differential Comment . PT INR APTT Sodium 139 Potassium 4.2 Chloride 108 H Carbon Dioxide 20.5 L Anion Gap 11 BUN 25 H Creatinine 0.86 Estimated GFR 85 L POC Glucose Random Glucose 106 Lactic Acid 2.3 H Calcium 7.7 L D Total Bilirubin 2.2 H AST 74 H ALT 56 Alkaline Phosphatase 205 H Total Protein 5.5 L D Albumin 2.9 L D Lipase 890 H Urine Color Urine Clarity Urine pH Ur Specific [place] Urine Protein Urine Glucose (UA) Urine Ketones Urine Occult Blood Urine Nitrate Urine Bilirubin Urine Ictotest Urine Urobilinogen Ur Leukocyte Esterase Urine RBC Urine WBC Ur Squamous Epith Cells Hyaline Casts WBC Casts Micro UA Comment Ur Microscopic Review Urine Culture Comments 02/19/18 02/19/18 09:05 09:20 CBC w Diff WBC RBC Hgb Hct MCV MCH MCHC RDW Plt Count MPV Neut % (Auto) Lymph % (Auto) Wake % (Auto) Eos % (Auto) Baso % (Auto) Neut # (Auto) Lymph # (Auto) Wake # (Auto) Eos # (Auto) Baso # (Auto) WBC Differential Differential Comment PT 14.5 H INR 1.4 APTT 25.7 Sodium Potassium Chloride Carbon Dioxide Anion Gap BUN Creatinine Estimated GFR POC Glucose 104 Random Glucose Lactic Acid Calcium Total Bilirubin AST ALT Alkaline Phosphatase Total Protein Albumin Lipase Urine Color Urine Clarity Urine pH Ur Specific [place] Urine Protein Urine Glucose (UA) Urine Ketones Urine Occult Blood Urine Nitrate Urine Bilirubin Urine Ictotest Urine Urobilinogen Ur Leukocyte Esterase Urine RBC Urine WBC Ur Squamous Epith Cells Hyaline Casts WBC Casts Micro UA Comment Ur Microscopic Review Urine Culture Comments - Imaging Imaging: ITS Impressions Abdomen X-Ray 02/18/18 16:09 CONCLUSION: Unremarkable bowel gas pattern. Abdomen/Pelvis CT 02/18/18 18:05 CONCLUSION: 1. Right upper quadrant acute inflammatory changes that appear to represent cholecystitis, duodenitis or a combination of the two. 2. There is small ascites. Nothing organized or loculated. 3. No bowel obstruction. 4. [place] diverticulosis of the sigmoid colon without evidence of diverticulitis. 5. 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 No aneurysm. Gallbladder Ultrasound 02/18/18 20:35 CONCLUSION: Abnormal gallbladder with wall thickening and pericholecystic fluid. Acute cholecystitis possible in the proper clinical setting. No stones are demonstrated. No evidence of biliary obstruction. CT scan - abdomen: image reviewed Additional studies: US gallbladder reviewed Assessment and Plan - Assessment (1) Abdominal pain Code(s): R10.9 - Unspecified abdominal pain Status: Acute Plan: 82 year old male with RUQ tenderness; elevated LFTs; elevated lipase -MRCP today -NPO -IVF -Continue treatment for UTI -Hepatitis panel -Labs in AM; CBC and LFTs -GI consult -Thank you for this consult; We will continue to follow - Plan Discussed Condition With: Dr. Breezy Cassidy - Attending Attestation The exam, history, and the medical decision-making described in the above note were completed with the assistance of the mid-level provider. I reviewed and agree with the findings presented. I attest that I had a [id number] encounter with the patient on the same day, and personally performed and documented my assessment and findings in the medical record. patient with choledocholithiasis, acute cholecystitis MRCP + stones in CBD abdomen with RUQ pain, otherwise stable patient and exam d/w patient, needs ERCP, then lap carly after CBD cleared of stones d/w primary MD will follow
--- NOTE | 2018-02-19 11:49 | P.HP ---
History of Present Illness Primary Care Physician: Terra Patel MD Chief Complaint: Abdominal pain History of Present Illness: This is a 82-year-old male with a history of prostate cancer status post surgery , iron deficiency anemia, GERD, gastric varices, gout, hypertension, CAD status post GA and hyperlipidemia. He presents to the emergency department because of abdominal pain. States about an hour after having brunch, he developed moderate to severe constant crampy bilateral infra umbilical pain that lasted for 12 hours associated with a 6 episodes of vomiting. No precipitating or alleviating factors. No fever, chills, UTI symptoms, constipation and diarrhea. ER workup shows abdominal CT showing right upper quadrant acute inflammatory changes that appeared to represent cholecystitis or duodenitis or a combination. Gallbladder sonogram shows abnormal gallbladder wall pericholecystic fluid. Also has abnormal liver function tests with total bilirubin 3.2, AST of 112, ALT of 83 alkaline phosphatase of 250 and lipase of 3728. Patient has been started on IV fluids and IV aztreonam and Flagyl. At this time, patient still complains of abdominal pain but improved nausea. Patient states he developed rectal bleeding in May of this year and his aspirin, Plavix and Zocor were reduced. He underwent colonoscopy which showed diverticulosis performed by Dr. Pena. He was also referred to hematology Dr. Roca and currently on iron and B12 shots. Patient also received beta metal stent late last year since then patient has not had any cardiac symptoms his trip motor operator is Dr. Hardy Inpatient Certification: I certify that the inpatient services were ordered in accordance with Medicare regulations governing the order. This includes certification that hospital inpatient services are reasonable and necessary and in the case of services not specified as inpatient-only under 42 CFR 419.22(n), that they are appropriately provided as inpatient services in accordance to with the 2-midnight benchmark under 43 CFR 412.3(e) Estimated Total Length of Stay (Days): 2 Plans for Post Hospital Care: Not yet determined Review of Systems All other systems reviewed negative except as stated in HPI PMFSH - History History Provided By: Patient - Medical History Medical History: Medical History (Last Reviewed 02/19/18 @ 16:00 by Miguel Navarrete MD) Anemia Essential hypertension GERD (gastroesophageal reflux disease) Gastric varices Gout History of GA (myocardial infarction) History of prostate cancer Hyperlipidemia - Surgical History Surgical History: Surgical History (Last Reviewed 02/19/18 @ 16:00 by Miguel Navarrete MD) History of heart artery stent History of prostate surgery - Family History Family History: Family History (Last Updated 02/19/18 @ 16:00 by Miguel Navarrete MD) Other Family history of cancer - Tobacco History Second Hand Smoke Exposure: No Smoking Status: Never smoker - Alcohol History How Often Do You Have a Drink Containing Alcohol: Never - Substance Use History Substance History: No History of Abuse - Travel History Recent Travel in the [place] Within the Last 8 Weeks: No Recent Travel Out of the Country Within the Last 8 Weeks: No - Immunization History Tetanus Immunization: Unsure Hx Influenza Vaccine This Season: No Medications and Allergies Active Medications: Active Medications Acetaminophen (Tylenol) 650 mg PO Q4H PRN PRN Reason: Temp > 100.4 Al Hydroxide/Mg Hydroxide (Milk Of Magnesia Liq) 30 ml PO Q12H PRN PRN Reason: Mild Constipation Bisacodyl (Dulcolax Supp) 10 mg RECTAL DAILY PRN PRN Reason: SEVERE CONSITIPATION Dextrose (D50w Vial) 50 ml IV.PUSH UNSCH PRN PRN Reason: PER HYPOGLYCEMIA PROTOCOL Famotidine (Pepcid Pf Inj) 20 mg IV.PUSH Q12HR DOTTY Last Admin: 02/19/18 09:43 Dose: 20 mg Glucagon (Glucagon Inj) 1 mg OTHER PRN PRN PRN Reason: for Hypoglycemia Protocol Sodium Chloride (Ns Inj) 1,000 mls @ 0 mls/hr IV.SIG BOLUS DOTTY Last Infusion: 02/18/18 16:27 Dose: Infused Sodium Chloride (Ns Inj) 1,000 mls @ 0 mls/hr IV.SIG BOLUS DOTTY Last Infusion: 02/18/18 21:55 Dose: Infused Aztreonam 2 gm/ Sodium (Chloride) 100 mls @ 200 mls/hr IV.SIG Q8H DOTTY Last Infusion: 02/19/18 03:51 Dose: Infused Metronidazole/Sodium Chloride (Flagyl 500 Mg Inj) 100 mls @ 100 mls/hr IV.SIG Q8H DOTTY Last Infusion: 02/19/18 05:58 Dose: Infused Sodium Chloride (Ns Inj) 1,000 mls @ 70 mls/hr IV.CONT .[id number] DOTTY Last Admin: 02/19/18 06:03 Dose: 75 mls/hr Lactulose (Lactulose Liq) 30 ml PO DAILY PRN PRN Reason: SEVERE CONSITIPATION Morphine Sulfate (Morphine Inj) 2 mg IV.PUSH Q3H PRN PRN Reason: pain 1- 10 while NPO Ondansetron HCl (Zofran Inj) 4 mg IV.PUSH Q6H PRN PRN Reason: NAUSEA OR VOMITING Senna/Docusate Sodium ([place]ona-Colace) 1 tab PO BID DOTTY Last Admin: 02/19/18 09:45 Dose: Not Given Sennosides (Senokot) 17.2 mg PO Q12H PRN PRN Reason: Moderate Constipation Allergies Allergy/AdvReac Type Severity Reaction Status Date / Time penicillin G Allergy Intermediate Rash Verified 02/18/18 13:18 Home Medications Medication Instructions Recorded Confirmed Type cyanocobalamin (vitamin B-12) 1,000 mcg PO DAILY 02/18/18 02/18/18 History [Vitamin B-12] ferrous sulfate [iron] 325 mg PO DAILY 02/18/18 02/18/18 History metoprolol tartrate 50 mg PO DAILY 02/18/18 02/18/18 History probenecid 500 mg PO DAILY 02/18/18 02/18/18 History ranitidine HCl 150 mg PO BID 02/18/18 02/18/18 History Exam Vital signs: Vital Signs 02/18/18 13:13 02/18/18 20:05 02/18/18 21:30 Temperature 97.8 F 98.3 F Pulse Rate 99 H 102 H 94 H Respiratory Rate 16 20 20 Blood Pressure 119/78 120/74 128/70 Pulse Oximetry 93 L 96 96 02/18/18 22:41 02/18/18 23:11 02/19/18 00:00 Temperature 98.1 F Pulse Rate 95 H 106 H 97 H Respiratory Rate 18 29 H 16 Blood Pressure 117/64 170/91 H Pulse Oximetry 95 92 L 5 L 02/19/18 03:43 Temperature 98.5 F Pulse Rate 100 H Respiratory Rate 25 H Blood Pressure 134/68 Pulse Oximetry 94 L Intake & Output 02/18/18 02/19/18 02/19/18 18:59 06:59 18:59 Intake Total 1000 / 1000 2391 / 2391 Balance 1000 / 1000 2391 / 2391 Weight 65.771 kg 64.6 kg Intake: IV 1000 / 1000 2391 / 2391 NS Inj 1,000 ML @ 75 mls/hr IV. 741 / 741 CONT .[id number] DOTTY Rx#: [id number] Azactam Inj 2 GM In NS Inj 100 200 / 200 ML @ 200 mls/hr IV.SIG Q8H DOTTY Rx#:[id number] NS Inj 1,000 ML @ Wide Open IV. 1000 / 1000 1000 / 1000 SIG BOLUS DOTTY Rx#:[id number] Vancomycin Inj 1,000 MG In NS 250 / 250 Inj 250 ML @ 250 mls/hr IV.SIG ONCE ONE Rx#:[id number] Flagyl 500 MG Inj 100 ML @ 100 200 / 200 mls/hr IV.SIG Q8H DOTTY Rx#: [id number] Oral 0 / 0 Other: # Urine Diapers 2 Date of Last Bowel Movement 02/18/18 Weight On Admission 64.6 kg Narrative: GENERAL: Well-developed, well-nourished in no distress SKIN: Warm and dry. HEAD: Atraumatic. Normocephalic. EYES: Pupils equal and round. No scleral icterus. No injection or drainage. ENT: No nasal bleeding or discharge. Mucous membranes pink and moist. NECK: Trachea midline. No JVD. CARDIOVASCULAR: Regular rate and rhythm. RESPIRATORY: No accessory muscle use. Clear to auscultation. Breath sounds equal bilaterally. GASTROINTESTINAL: Abdomen soft, non-tender, nondistended. MUSCULOSKELETAL: Extremities without clubbing, cyanosis but with bilateral lower extremity mild pitting edema. No obvious deformities. NEUROLOGICAL: Awake and alert. No obvious cranial nerve deficits. Motor grossly within normal limits. Five out of 5 muscle strength in the arms and legs. Normal speech. PSYCHIATRIC: Appropriate mood and affect; insight and judgment normal. Results - Labs CBC & Chem 7: 02/19/18 04:19 02/19/18 04:19 Labs: Laboratory Results - last 24 hr 02/18/18 02/18/18 02/18/18 14:30 14:30 16:24 CBC w Diff Auto diff final WBC 21.1 H RBC 4.86 Hgb 16.6 Hct 49.9 MCV 102.6 H MCH 34.2 H MCHC 33.3 RDW 12.9 Plt Count 215 MPV 9.4 Neut % (Auto) 85.6 H Lymph % (Auto) 6.9 L [place] % (Auto) 6.7 Eos % (Auto) 0.2 Baso % (Auto) 0.6 Neut # (Auto) 18.1 H Lymph # (Auto) 1.5 [place] # (Auto) 1.4 H Eos # (Auto) 0.0 Baso # (Auto) 0.1 WBC Differential . Differential Comment . PT INR APTT Sodium 136 Potassium 4.7 Chloride 101 Carbon Dioxide 22.4 Anion Gap 13 BUN 27 H Creatinine 1.60 H Estimated GFR 42 L POC Glucose Random Glucose 128 H Lactic Acid Calcium 9.2 Total Bilirubin 3.2 H AST 112 H ALT 83 H Alkaline Phosphatase 280 H Total Protein 7.0 Albumin 3.8 Lipase 3378 H Urine Color Yellow Urine Clarity Slight H Urine pH 5.5 Ur Specific [place] Greater/equal 1.030 Urine Protein 30 H Urine Glucose (UA) Negative Urine Ketones Trace H Urine Occult Blood Trace Urine Nitrate Negative Urine Bilirubin Small H Urine Ictotest Positive H Urine Urobilinogen 1.0 Ur Leukocyte Esterase Negative Urine RBC 0-3 Urine WBC 9-20 H Ur Squamous Epith Cells 6-10 H Hyaline Casts 11-30 H WBC Casts 4-10 H Micro UA Comment Culture indicated Ur Microscopic Review Microscopic reviewed Urine Culture Comments Culture indicated 02/18/18 02/19/18 02/19/18 20:55 04:19 04:19 CBC w Diff Auto diff final WBC 16.6 H RBC 4.05 L Hgb 14.3 D Hct 41.4 MCV 102.1 H MCH 35.3 H MCHC 34.6 RDW 13.0 Plt Count 124 L D MPV 9.3 Neut % (Auto) 88.6 H Lymph % (Auto) 6.3 L [place] % (Auto) 4.6 Eos % (Auto) 0.1 Baso % (Auto) 0.4 Neut # (Auto) 14.8 H Lymph # (Auto) 1.0 [place] # (Auto) 0.8 Eos # (Auto) 0.0 Baso # (Auto) 0.1 WBC Differential . Differential Comment . PT INR APTT Sodium 139 Potassium 4.2 Chloride 108 H Carbon Dioxide 20.5 L Anion Gap 11 BUN 25 H Creatinine 0.86 Estimated GFR 85 L POC Glucose Random Glucose 106 Lactic Acid 2.3 H Calcium 7.7 L D Total Bilirubin 2.2 H AST 74 H ALT 56 Alkaline Phosphatase 205 H Total Protein 5.5 L D Albumin 2.9 L D Lipase 890 H Urine Color Urine Clarity Urine pH Ur Specific [place] Urine Protein Urine Glucose (UA) Urine Ketones Urine Occult Blood Urine Nitrate Urine Bilirubin Urine Ictotest Urine Urobilinogen Ur Leukocyte Esterase Urine RBC Urine WBC Ur Squamous Epith Cells Hyaline Casts WBC Casts Micro UA Comment Ur Microscopic Review Urine Culture Comments 02/19/18 02/19/18 09:05 09:20 CBC w Diff WBC RBC Hgb Hct MCV MCH MCHC RDW Plt Count MPV Neut % (Auto) Lymph % (Auto) [place] % (Auto) Eos % (Auto) Baso % (Auto) Neut # (Auto) Lymph # (Auto) [place] # (Auto) Eos # (Auto) Baso # (Auto) WBC Differential Differential Comment PT 14.5 H INR 1.4 APTT 25.7 Sodium Potassium Chloride Carbon Dioxide Anion Gap BUN Creatinine Estimated GFR POC Glucose 104 Random Glucose Lactic Acid Calcium Total Bilirubin AST ALT Alkaline Phosphatase Total Protein Albumin Lipase Urine Color Urine Clarity Urine pH Ur Specific [place] Urine Protein Urine Glucose (UA) Urine Ketones Urine Occult Blood Urine Nitrate Urine Bilirubin Urine Ictotest Urine Urobilinogen Ur Leukocyte Esterase Urine RBC Urine WBC Ur Squamous Epith Cells Hyaline Casts WBC Casts Micro UA Comment Ur Microscopic Review Urine Culture Comments - Imaging Impressions Abdomen X-Ray 02/18/18 16:09 CONCLUSION: Unremarkable bowel gas pattern. Abdomen/Pelvis CT 02/18/18 18:05 CONCLUSION: 1. Right upper quadrant acute inflammatory changes that appear to represent cholecystitis, duodenitis or a combination of the two. 2. There is small ascites. Nothing organized or loculated. 3. No bowel obstruction. 4. [place] diverticulosis of the sigmoid colon without evidence of diverticulitis. 5. 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 No aneurysm. Gallbladder Ultrasound 02/18/18 20:35 CONCLUSION: Abnormal gallbladder with wall thickening and pericholecystic fluid. Acute cholecystitis possible in the proper clinical setting. No stones are demonstrated. No evidence of biliary obstruction. Caprini VTE Risk Assessment Caprini VTE Risk Assessment: Moderate/High Risk (score >= 2) Caprini Risk Assessment Model: Point Value = 1 Point Value = 2 Point Value = 3 Point Value = 5 Age 41-60 Minor surgery BMI > 25 kg/m2 Swollen legs Varicose veins or History of unexplained or recurrent spontaneous Oral contraceptives or hormone replacement Sepsis (< 1 month) Serious lung disease, including pneumonia (< 1 month) Abnormal pulmonary function Acute myocardial infarction Congestive heart failure (< 1 month) History of inflammatory bowel disease Medical patient at bed rest Age 61-74 Arthroscopic surgery Major open surgery (> 45 min) Laparoscopic surgery (> 45 min) Malignancy Confined to bed (> 72 hours) Immobilizing plaster cast Central venous access Age >= 75 History of VTE Family history of VTE Factor V Leiden Prothrombin [id number] Lupus anticoagulant Anticardiolipin antibodies Elevated serum homocysteine Heparin-induced thrombocytopenia Other congenital or acquired thrombophilia Stroke (< 1 month) Elective arthroplasty Hip, pelvis, or leg fracture Acute spinal cord injury (< 1 month) Prophylaxis Regimen: Total Risk Factor Score Risk Level Prophylaxis Regimen 0-1 Low Early ambulation 2 Moderate Order ONE of the following: *Sequential Compression Device (SCD) *Heparin 5000 units SQ BID 3-4 Higher Order ONE of the following medications: *Heparin 5000 units SQ TID *Enoxaparin/Lovenox 40 mg SQ daily (WT < 150 kg, CrCl > 30 mL/min) *Enoxaparin/Lovenox 30 mg SQ daily (WT < 150 kg, CrCl > 10-29 mL/min) *Enoxaparin/Lovenox 30 mg SQ BID (WT < 150 kg, CrCl > 30 mL/min) AND/OR *Sequential Compression Device (SCD) 5 or more Highest Order ONE of the following medications: *Heparin 5000 units SQ TID (Preferred with Epidurals) *Enoxaparin/Lovenox 40 mg SQ daily (WT < 150 kg, CrCl > 30 mL/min) *Enoxaparin/Lovenox 30 mg SQ daily (WT < 150 kg, CrCl > 10-29 mL/min) *Enoxaparin/Lovenox 30 mg SQ BID (WT < 150 kg, CrCl > 30 mL/min) AND *Sequential Compression Device (SCD) Assessment and Plan - Plan This is a 82-year-old male with a history of prostate cancer status post surgery , iron deficiency anemia, GERD, gastric varices, gout, hypertension, CAD status post GA/stent and hyperlipidemia. He presents with abdominal pain, nausea and vomiting. Abdominal CT showing right upper quadrant acute inflammatory changes that appeared to represent cholecystitis or duodenitis or a combination. Gallbladder sonogram shows abnormal gallbladder wall pericholecystic fluid. Also has abnormal liver function tests with total bilirubin 3.2, AST of 112, ALT of 83 alkaline phosphatase of 250 and lipase of 3728. Lower abdominal pain with abnormal urinalysis. Patient has severe sepsis and UTI. Continue aztreonam and Flagyl. Follow-up cultures Abnormal liver function test and elevated lipase with abnormal CT showing possible cholecystitis or duodenitis or combination. Gallbladder sonogram shows abnormal gallbladder wall thickening and pericholecystic fluid. Patient continues to have lower abdominal pain but no tenderness. Abnormal liver function tests and lipase improving. Continue IV hydration and pain management with IV morphine counseled regarding narcotics. General surgery has been consulted. Continue PPI. GI also consulted. Keep patient n.p.o. continue IV hydration and monitor for hypoglycemia. Repeat labs in the morning DVT prophylaxis with SCD and early ambulation
[2018-02-19] MEDS: Metoprolol Tartrate 50 MG Tablet PO SCH (13:16)
[2018-02-19 14:27] LABS: Hepatitits B Surface Antigen Nonreactive (Nonreactive)
[2018-02-19 14:55] LABS: Hepatitis A IgM Antibody Nonreactive (Nonreactive)
--- NOTE | 2018-02-19 16:38 | MR ---
EXAM DATE: 02/19/2018 1:26 PM EDT AGE/SEX: 82 years / Male INDICATIONS: Cholelithiasis. CLINICAL DATA: This is the patient's initial encounter. Patient reports that signs and symptoms have been present for 1 day and indicates a pain score of 5/10. MEDICAL/SURGICAL HISTORY: Cardiovascular disease. Carcinoma, prostatic. Prostatectomy. Wei ry artery stent. COMPARISON: [facility], US ABDOMEN - GALLBLADDER, 02/18/2018. . TECHNIQUE: Multiplanar, multisequence images of the abdomen were obtained without contrast including dedicated cholangiographic images. FINDINGS: Liver: The liver is homogeneous and normal in signal intensity with no focal defects. Ascites is not ed. Intrahepatic Bile Ducts: There is no intrahepatic biliary ductal dilatation. Common Bile Duct: There is diffuse dilatation of the common bile duct measuring 9 mm with possible f illing defect in the distal common bile duct. ERCP would be helpful for further evaluation and possib le treatment if clinically indicated. Gallbladder: The wall of the gallbladder remains mildly thickened. Minimal pericholecystic fluid is noted. No definite gallstone is confirmed. Pancreas: The pancreas appears normal in signal with no focal parenchymal abnormalities. The pancrea tic duct is normal in caliber with no filling defects, or obstructing lesions identified. CONCLUSION: 1. Diffuse dilatation of the common bile duct measuring 9 mm with possible filling defect in the dis tracey common bile duct. ERCP would be helpful for further evaluation and possible treatment if clinical ly indicated. 2. Mildly thickened gallbladder wall with minimal pericholecystic fluid. No definite gallstone ident ified. 3. Minimal ascites. Electronically signed by: Fabien Lou MD 02/19/2018 4:37 PM EDT
--- NOTE | 2018-02-19 17:04 | MB ---
cc: Sivakumar Reddy MD DATE: 02/19/2018 GASTROENTEROLOGY CONSULTATION REASON FOR GASTROINTESTINAL CONSULT: Evaluation of abdominal pain, cholecystitis. HISTORY OF PRESENT ILLNESS: An 82-year-old male who has a history of anemia, hypertension, history of gastric varices, prostate cancer, diverticular disease, was doing well up until Thursday late afternoon. He developed acute onset of mid abdominal pain with nausea and vomiting. He had several episodes of vomiting bilious type. He even presented to the emergency room and he had abnormal liver enzymes. White count was 21,000 on admission, dropped down to 16,000 today. His liver enzymes, total bilirubin was 3. It is now 2.2. SGOT and SGPT 112/83 now they are 74/56. Alkaline phosphatase also declined from 208 to 205. Lipase was 3300 on admission, dropped down to 890 quickly today, all suggestive of rapid gallstone pancreatitis, passage of either sludge and/or stones. Abdominal ultrasound did not reveal any significant ductal dilatation. There was some thickening of the gallbladder wall with pericholecystic fluid noted. No stones were noted. A CT scan was also obtained acute inflammatory changes representing cholecystitis were noted. There was a small amount of ascites noted as well. There was some edema around the head of the pancreas, probably secondary to the onset of gallstone pancreatitis. The patient is feeling better at this time. The abdominal pain certainly has improved significantly. He has been afebrile. Vital signs have been stable. He has been seen by the surgical team as well. PAST MEDICAL HISTORY: As mentioned above. He has a history of GERD, gastric varices, history of LA, prostatic cancer, hyperlipidemia, gout, chronic anemia, although his hemoglobin has been normal on this admission. SOCIAL HISTORY: He denies heavy alcohol use or smoking at this time. MEDICATIONS: Include ferrous sulfate, metoprolol, Probenecid, ranitidine. ALLERGIES: HE HAS AN ALLERGY TO PENICILLIN. FAMILY HISTORY: From a GI standpoint, there is no family history of gastrointestinal disease or pancreatic disease. REVIEW OF SYSTEMS: As stated in the HPI. He denies any jaundice, fever or weight loss. PHYSICAL EXAMINATION: GENERAL: Pleasant, well-developed male, alert and oriented x3, no acute distress. VITAL SIGNS: Stable. SKIN: He has no unusual rashes. SKIN: Warm and dry. Ecchymotic areas noted. HEENT: Normocephalic. Sclerae are anicteric. Oral mucosa is dry. NECK: Supple. No mass or JVD. CARDIAC: S1, S2, regular rate and rhythm. LUNGS: Fairly clear to A and P. ABDOMEN: Mild tympany is noted. Bowel sounds are present. I do not detect any organomegaly or masses. There is no rebound tenderness present. EXTREMITIES: Without clubbing, cyanosis or edema. NEUROLOGIC: No focal defects. IMPRESSION: 1. Acute cholecystitis. 2. Abnormal liver enzymes declining and trending downward. 3. Elevated lipase acute pancreatitis secondary to gallstone pancreatitis. PLAN: We will followup with the results of MRCP, which were obtained. I believe the patient passed a stone and/or sludge and is rapidly improving from that respect. He will most likely require laparoscopic cholecystectomy in the near future as his pancreatitis resolves. If surgery is anticipated we could consider an intraoperative cholangiogram as well, but the MRCP may be completely unremarkable and that perhaps may not be necessary. I will continue supportive therapy, IV hydration, antibiotics at this time. Recheck his liver enzymes in the next 24 hours as well along with a lipase level. I will be glad to follow the patient with you should my intervention be necessary with ERCP, although if workup continues to be unremarkable that also may not be necessary as well. I have discussed with the patient. We discussed ERCP briefly, procedure, risks and benefits including pancreatitis were discussed. MD SAMRA Garcia/marcela , 04:27 PM , 04:37 PM
[2018-02-20] MEDS: Aztreonam Inj 2 GM in Sodium Chloride 0.9% Inj 100 ML IV.SIG SCH ×3 (04:32→20:03)
[2018-02-20] MEDS: Sod Chloride 0.9% Inj 1,000 ML IV.CONT SCH ×2 (05:17→18:46)
[2018-02-20 06:55] LABS: Baso # (Auto) 0.1 th/mm3 (0.0-0.2); Eos % (Auto) 0.2 % (0.0-4.0); Hematocrit 37.4 % (39.0-51.0); Hemoglobin 13.1 gm/dL (13.0-17.0); Lymph # (Auto) 1.1 th/mm3 (1.0-4.8); Lymph % (Auto) 7.4 % (9.0-44.0); Mean Corpuscular Volume 99.9 fL (80.0-100.0); Mean Platelet Volume 8.8 fL (7.0-11.0); Mono # (Auto) 0.8 th/mm3 (0.0-0.9); Mono % (Auto) 5.7 % (0.0-8.0); Neut # (Auto) 12.4 th/mm3 (1.8-7.7); Neut % (Auto) 85.7 % (16.0-70.0); Platelet Count 118 th/mm3 (150-450); Red Blood Count 3.74 mil/mm3 (4.50-5.90); Red Cell Distribution Width 13.2 % (11.6-17.2); White Blood Count 14.4 th/mm3 (4.0-11.0)
[2018-02-20 07:06] LABS: Chloride 111 meq/L (98-107); Potassium 3.9 meq/L (3.5-5.1); Sodium 142 meq/L (136-145)
[2018-02-20 07:10] LABS: Albumin 2.7 g/dL (3.4-5.0); Anion Gap 10 meq/L (5-15); Calcium 7.5 mg/dL (8.5-10.1); Carbon Dioxide 21.4 meq/L (21.0-32.0); Glucose,Random 84 mg/dL (74-106); Magnesium 2.2 mg/dL (1.5-2.5)
[2018-02-20 07:11] LABS: Blood Urea Nitrogen 21 mg/dL (7-18)
[2018-02-20 07:13] LABS: Alanine Aminotransferase 38 U/L (12-78)
[2018-02-20 07:14] LABS: Aspartate Aminotransferase 46 U/L (15-37); Glomerular Filtration Rate Greater Than 89 mL/min (>89)
[2018-02-20 07:15] LABS: Total Protein 5.3 g/dL (6.4-8.2)
[2018-02-20 07:16] LABS: Alkaline Phosphatase 195 U/L (45-117)
--- NOTE | 2018-02-20 10:31 | P.PN ---
Subjective Interval history: Follow-up gallstone pancreatitis and UTI. States he is feeling better with no nausea, vomiting and abdominal pain except for tenderness when palpated. Seen with family Physical Exam Vital signs: Vital Signs 02/19/18 12:00 02/19/18 13:00 02/19/18 14:00 Temperature 98 F Pulse Rate 116 H 110 H Respiratory Rate 22 20 Blood Pressure 115/68 114/65 Pulse Oximetry 94 L 94 L 02/19/18 14:52 02/19/18 15:44 02/19/18 15:45 Temperature 98 F Pulse Rate 68 Respiratory Rate 18 23 Blood Pressure 124/60 Pulse Oximetry 95 02/19/18 20:00 02/20/18 00:13 02/20/18 04:13 Temperature 98.7 F Pulse Rate 88 90 92 H Respiratory Rate 27 H 18 18 Blood Pressure 119/63 150/84 H 152/75 H Pulse Oximetry 93 L 95 Intake & Output 02/19/18 02/20/18 02/20/18 18:59 06:59 18:59 Intake Total 459 / 459 1400 / 1400 Output Total 490 / 490 550 / 550 Balance -31 / -31 850 / 850 Intake: IV 459 / 459 1400 / 1400 NS Inj 1,000 ML @ 70 mls/hr IV. 259 / 259 1000 / 1000 CONT .[id number] DOTTY Rx#: [id number] Azactam Inj 2 GM In NS Inj 100 100 / 100 200 / 200 ML @ 200 mls/hr IV.SIG Q8H DOTTY Rx#:[id number] Flagyl 500 MG Inj 100 ML @ 100 100 / 100 200 / 200 mls/hr IV.SIG Q8H DOTTY Rx#: [id number] Oral 0 / 0 0 / 0 Output: Urine 490 / 490 550 / 550 Other: # Incontinent Voids 1 # Urine Diapers 1 Date of Last Bowel Movement 02/18/18 Narrative: GENERAL: Well-developed, well-nourished in no distress SKIN: Warm and dry. CARDIOVASCULAR: Regular rate and rhythm. RESPIRATORY: No accessory muscle use. Clear to auscultation. Breath sounds equal bilaterally. GASTROINTESTINAL: Abdomen soft, positive Escobedo's, nondistended. MUSCULOSKELETAL: Extremities without clubbing, cyanosis but with bilateral lower extremity mild pitting edema. No obvious deformities. NEUROLOGICAL: Awake and alert. No obvious cranial nerve deficits. Motor grossly within normal limits. Five out of 5 muscle strength in the arms and legs. Normal speech. PSYCHIATRIC: Appropriate mood and affect; insight and judgment normal. Results - Labs CBC & Chem 7: 02/20/18 06:13 02/20/18 06:13 Laboratory Results - last 24 hr 02/19/18 02/19/18 02/20/18 11:15 20:00 06:13 CBC w Diff Auto diff final WBC 14.4 H RBC 3.74 L Hgb 13.1 Hct 37.4 L MCV 99.9 MCH 35.0 H MCHC 35.0 RDW 13.2 Plt Count 118 L MPV 8.8 Neut % (Auto) 85.7 H Lymph % (Auto) 7.4 L [place] % (Auto) 5.7 Eos % (Auto) 0.2 Baso % (Auto) 1.0 Neut # (Auto) 12.4 H Lymph # (Auto) 1.1 [place] # (Auto) 0.8 Eos # (Auto) 0.0 Baso # (Auto) 0.1 WBC Differential . Differential Comment . Sodium Potassium Chloride Carbon Dioxide Anion Gap BUN Creatinine Estimated GFR POC Glucose 83 Random Glucose Calcium Magnesium Total Bilirubin AST ALT Alkaline Phosphatase Total Protein Albumin Hepatitis A IgM Ab Nonreactive Hep Bs Antigen Nonreactive Hep B Core IgM Ab Nonreactive Hep C IgG Ab Nonreactive 02/20/18 06:13 CBC w Diff WBC RBC Hgb Hct MCV MCH MCHC RDW Plt Count MPV Neut % (Auto) Lymph % (Auto) [place] % (Auto) Eos % (Auto) Baso % (Auto) Neut # (Auto) Lymph # (Auto) [place] # (Auto) Eos # (Auto) Baso # (Auto) WBC Differential Differential Comment Sodium 142 Potassium 3.9 Chloride 111 H Carbon Dioxide 21.4 Anion Gap 10 BUN 21 H Creatinine 0.68 Estimated GFR Greater than 89 POC Glucose Random Glucose 84 Calcium 7.5 L Magnesium 2.2 Total Bilirubin 1.9 H AST 46 H ALT 38 Alkaline Phosphatase 195 H Total Protein 5.3 L Albumin 2.7 L Hepatitis A IgM Ab Hep Bs Antigen Hep B Core IgM Ab Hep C IgG Ab Microbiology 02/18/18 16:24 Clean Catch Urine Urine Culture - Preliminary Immature growth - reincubate 02/18/18 20:45 Blood - Peripheral Aerobic Blood Culture - Preliminary No growth in 1 day 02/18/18 20:45 Blood - Peripheral Anaerobic Blood Culture - Preliminary No growth in 1 day 02/18/18 20:35 Blood - Peripheral Aerobic Blood Culture - Preliminary No growth in 1 day 02/18/18 20:35 Blood - Peripheral Anaerobic Blood Culture - Preliminary No growth in 1 day - Imaging Impressions Cholangiopancreatography MRI 02/19/18 00:00 CONCLUSION: 1. Diffuse dilatation of the common bile duct measuring 9 mm with possible filling defect in the distal common bile duct. ERCP would be helpful for further evaluation and possible treatment if clinically indicated. 2. Mildly thickened gallbladder wall with minimal pericholecystic fluid. No definite gallstone identified. 3. Minimal ascites. Assessment and Plan - Plan This is a 82-year-old male with a history of prostate cancer status post surgery , iron deficiency anemia, GERD, gastric varices, gout, hypertension, CAD status post [place]/stent and hyperlipidemia. He presents with abdominal pain, nausea and vomiting. Abdominal CT showing right upper quadrant acute inflammatory changes that appeared to represent cholecystitis or duodenitis or a combination. Gallbladder sonogram shows abnormal gallbladder wall pericholecystic fluid. Also has abnormal liver function tests with total bilirubin 3.2, AST of 112, ALT of 83 alkaline phosphatase of 250 and lipase of 3728. Severe sepsis and UTI. Stable. Continue aztreonam and Flagyl. Follow-up cultures Gallstone pancreatitis per. Abnormal liver function test and elevated lipase with abnormal CT showing possible cholecystitis or duodenitis or combination. Gallbladder sonogram shows abnormal gallbladder wall thickening and pericholecystic fluid. MRCP with dilated CBD with filling defect. Abnormal liver function tests and lipase improving. He is clinically stable. Start clear liquid diet. Continue IV hydration and pain management with IV morphine counseled regarding narcotics. General surgery has been consulted will need lap carly after ERCP by GI. Continue PPI. DVT prophylaxis with SCD and early ambulation. Subcu heparin today and tomorrow then DC prior to ERCP Discharge Planning: Stable to [facility]
[2018-02-20] MEDS: Famotidine PF Inj 20 MG/2 ML Vial IV.PUSH SCH ×2 (11:28→20:10)
[2018-02-20] MEDS: Senna/Docusate Sodium 8.6/50 MG Tablet PO SCH ×2 (11:28→20:09)
[2018-02-20] MEDS: Metoprolol Tartrate 50 MG Tablet PO SCH (11:28)
--- NOTE | 2018-02-20 12:11 | P.PNGI ---
Subjective Interval history: ALert Nad Feeling better tolerating po no vomiting pain improved discussed MRCP w Radiologist..There is no clear filling defect seen in CBD Lfts contiunue to trend downward Physical Exam Vital signs: Vital Signs 02/19/18 12:00 02/19/18 13:00 02/19/18 14:00 Temperature 98 F Pulse Rate 116 H 110 H Respiratory Rate 22 20 Blood Pressure 115/68 114/65 Pulse Oximetry 94 L 94 L 02/19/18 14:52 02/19/18 15:44 02/19/18 15:45 Temperature 98 F Pulse Rate 68 Respiratory Rate 18 23 Blood Pressure 124/60 Pulse Oximetry 95 02/19/18 20:00 02/20/18 00:13 02/20/18 04:13 Temperature 98.7 F Pulse Rate 88 90 92 H Respiratory Rate 27 H 18 18 Blood Pressure 119/63 150/84 H 152/75 H Pulse Oximetry 93 L 95 Intake & Output 02/19/18 02/20/18 02/20/18 18:59 06:59 18:59 Intake Total 459 / 459 1400 / 1400 Output Total 490 / 490 550 / 550 Balance -31 / -31 850 / 850 Intake: IV 459 / 459 1400 / 1400 NS Inj 1,000 ML @ 70 mls/hr IV. 259 / 259 1000 / 1000 CONT .[id number] DOTTY Rx#: [id number] Azactam Inj 2 GM In NS Inj 100 100 / 100 200 / 200 ML @ 200 mls/hr IV.SIG Q8H DOTTY Rx#:[id number] Flagyl 500 MG Inj 100 ML @ 100 100 / 100 200 / 200 mls/hr IV.SIG Q8H DOTTY Rx#: [id number] Oral 0 / 0 0 / 0 Output: Urine 490 / 490 550 / 550 Other: # Incontinent Voids 1 # Urine Diapers 1 Date of Last Bowel Movement 02/18/18 - Constitutional no acute distress - Routine Respiratory Exam Present: CTA bilaterally - Routine Cardiovascular Exam Present: S1, S2 - Routine Abdominal Exam Present: soft, normoactive bowel sounds Results - Labs CBC & Chem 7: 02/20/18 06:13 02/20/18 06:13 Laboratory Results - last 24 hr 02/19/18 02/19/18 02/20/18 11:15 20:00 06:13 CBC w Diff Auto diff final WBC 14.4 H RBC 3.74 L Hgb 13.1 Hct 37.4 L MCV 99.9 MCH 35.0 H MCHC 35.0 RDW 13.2 Plt Count 118 L MPV 8.8 Neut % (Auto) 85.7 H Lymph % (Auto) 7.4 L [place] % (Auto) 5.7 Eos % (Auto) 0.2 Baso % (Auto) 1.0 Neut # (Auto) 12.4 H Lymph # (Auto) 1.1 [place] # (Auto) 0.8 Eos # (Auto) 0.0 Baso # (Auto) 0.1 WBC Differential . Differential Comment . Sodium Potassium Chloride Carbon Dioxide Anion Gap BUN Creatinine Estimated GFR POC Glucose 83 Random Glucose Calcium Magnesium Total Bilirubin AST ALT Alkaline Phosphatase Total Protein Albumin Hepatitis A IgM Ab Nonreactive Hep Bs Antigen Nonreactive Hep B Core IgM Ab Nonreactive Hep C IgG Ab Nonreactive 02/20/18 02/20/18 06:13 11:42 CBC w Diff WBC RBC Hgb Hct MCV MCH MCHC RDW Plt Count MPV Neut % (Auto) Lymph % (Auto) [place] % (Auto) Eos % (Auto) Baso % (Auto) Neut # (Auto) Lymph # (Auto) [place] # (Auto) Eos # (Auto) Baso # (Auto) WBC Differential Differential Comment Sodium 142 Potassium 3.9 Chloride 111 H Carbon Dioxide 21.4 Anion Gap 10 BUN 21 H Creatinine 0.68 Estimated GFR Greater than 89 POC Glucose 79 Random Glucose 84 Calcium 7.5 L Magnesium 2.2 Total Bilirubin 1.9 H AST 46 H ALT 38 Alkaline Phosphatase 195 H Total Protein 5.3 L Albumin 2.7 L Hepatitis A IgM Ab Hep Bs Antigen Hep B Core IgM Ab Hep C IgG Ab Microbiology 02/18/18 16:24 Clean Catch Urine Urine Culture - Final >100,000 cfu/mL mixed gram positive brissa (probable contaminantes) 02/18/18 20:45 Blood - Peripheral Aerobic Blood Culture - Preliminary No growth in 2 days 02/18/18 20:45 Blood - Peripheral Anaerobic Blood Culture - Preliminary No growth in 2 days 02/18/18 20:35 Blood - Peripheral Aerobic Blood Culture - Preliminary No growth in 2 days 02/18/18 20:35 Blood - Peripheral Anaerobic Blood Culture - Preliminary No growth in 2 days - Imaging Impressions Cholangiopancreatography MRI 02/19/18 00:00 CONCLUSION: 1. Diffuse dilatation of the common bile duct measuring 9 mm with possible filling defect in the distal common bile duct. ERCP would be helpful for further evaluation and possible treatment if clinically indicated. 2. Mildly thickened gallbladder wall with minimal pericholecystic fluid. No definite gallstone identified. 3. Minimal ascites. Assessment and Plan (1) Acute gallstone pancreatitis Status: Acute Code(s): K85.10 - Biliary acute pancreatitis without necrosis or infection (2) Cholecystitis Status: Acute Code(s): K81.9 - Cholecystitis, unspecified - Attending Attestation I have discussed case with attending MD and Radiology and the Radilogists impression was that no obvious filling defect is present in CBd therefore i suggest we could proceed w cholycytectomy per surgery and consider IOC as well and if a stone or defect is suspeected we can proceed w ERCP afterwards.... please follow up lfts and lipase.
[2018-02-20 13:10] LABS: Chloride 111 meq/L (98-107); Potassium 3.8 meq/L (3.5-5.1); Sodium 141 meq/L (136-145)
[2018-02-20 13:13] LABS: Albumin 2.8 g/dL (3.4-5.0); Anion Gap 11 meq/L (5-15); Calcium 7.7 mg/dL (8.5-10.1); Carbon Dioxide 19.3 meq/L (21.0-32.0); Lipase 196 U/L (73-393)
[2018-02-20 13:14] LABS: Blood Urea Nitrogen 19 mg/dL (7-18); Glucose,Random 113 mg/dL (74-106)
[2018-02-20 13:16] LABS: Alanine Aminotransferase 37 U/L (12-78); Aspartate Aminotransferase 42 U/L (15-37)
[2018-02-20 13:17] LABS: Glomerular Filtration Rate Greater Than 89 mL/min (>89)
[2018-02-20 13:18] LABS: Total Protein 5.5 g/dL (6.4-8.2)
[2018-02-20 13:19] LABS: Alkaline Phosphatase 204 U/L (45-117)
--- NOTE | 2018-02-20 13:45 | P.PN ---
Subjective Interval history: No abdominal pain; tolerating clear liquids at time of my exam. Physical Exam Vital signs: Vital Signs 02/19/18 14:00 02/19/18 14:52 02/19/18 15:44 Temperature Pulse Rate Respiratory Rate 18 Blood Pressure 114/65 124/60 Pulse Oximetry 02/19/18 15:45 02/19/18 20:00 02/20/18 00:13 Temperature 98 F 98.7 F Pulse Rate 68 88 90 Respiratory Rate 23 27 H 18 Blood Pressure 119/63 150/84 H Pulse Oximetry 95 93 L 02/20/18 04:13 Temperature Pulse Rate 92 H Respiratory Rate 18 Blood Pressure 152/75 H Pulse Oximetry 95 Intake & Output 02/19/18 02/20/18 02/20/18 18:59 06:59 18:59 Intake Total 459 / 459 1400 / 1400 100 / 100 Output Total 490 / 490 550 / 550 Balance -31 / -31 850 / 850 100 / 100 Intake: IV 459 / 459 1400 / 1400 100 / 100 NS Inj 1,000 ML @ 70 mls/hr IV. 259 / 259 1000 / 1000 CONT .[id number] DOTTY Rx#: [id number] Azactam Inj 2 GM In NS Inj 100 100 / 100 200 / 200 100 / 100 ML @ 200 mls/hr IV.SIG Q8H DOTTY Rx#:[id number] Flagyl 500 MG Inj 100 ML @ 100 100 / 100 200 / 200 mls/hr IV.SIG Q8H DOTTY Rx#: [id number] Oral 0 / 0 0 / 0 Output: Urine 490 / 490 550 / 550 Other: # Incontinent Voids 1 # Urine Diapers 1 Date of Last Bowel Movement 02/18/18 - Constitutional no acute distress - Routine Respiratory Exam Present: CTA bilaterally - Routine Cardiovascular Exam Present: RRR - Routine Abdominal Exam Present: soft, surgical scars (infraumbilical midline incision from prostatectomy [address] Nuñez.) Comments: No tenderness to palpation Results - Labs CBC & Chem 7: 02/20/18 06:13 02/20/18 12:53 Laboratory Results - last 24 hr 02/19/18 02/19/18 02/20/18 11:15 20:00 06:13 CBC w Diff Auto diff final WBC 14.4 H RBC 3.74 L Hgb 13.1 Hct 37.4 L MCV 99.9 MCH 35.0 H MCHC 35.0 RDW 13.2 Plt Count 118 L MPV 8.8 Neut % (Auto) 85.7 H Lymph % (Auto) 7.4 L [place] % (Auto) 5.7 Eos % (Auto) 0.2 Baso % (Auto) 1.0 Neut # (Auto) 12.4 H Lymph # (Auto) 1.1 [place] # (Auto) 0.8 Eos # (Auto) 0.0 Baso # (Auto) 0.1 WBC Differential . Differential Comment . Sodium Potassium Chloride Carbon Dioxide Anion Gap BUN Creatinine Estimated GFR POC Glucose 83 Random Glucose Calcium Magnesium Total Bilirubin AST ALT Alkaline Phosphatase Total Protein Albumin Lipase Hepatitis A IgM Ab Nonreactive Hep Bs Antigen Nonreactive Hep B Core IgM Ab Nonreactive Hep C IgG Ab Nonreactive 02/20/18 02/20/18 02/20/18 06:13 11:42 12:53 CBC w Diff WBC RBC Hgb Hct MCV MCH MCHC RDW Plt Count MPV Neut % (Auto) Lymph % (Auto) [place] % (Auto) Eos % (Auto) Baso % (Auto) Neut # (Auto) Lymph # (Auto) [place] # (Auto) Eos # (Auto) Baso # (Auto) WBC Differential Differential Comment Sodium 142 141 Potassium 3.9 3.8 Chloride 111 H 111 H Carbon Dioxide 21.4 19.3 L Anion Gap 10 11 BUN 21 H 19 H Creatinine 0.68 0.72 Estimated GFR Greater than 89 Greater than 89 POC Glucose 79 Random Glucose 84 113 H Calcium 7.5 L 7.7 L Magnesium 2.2 Total Bilirubin 1.9 H 1.8 H AST 46 H 42 H ALT 38 37 Alkaline Phosphatase 195 H 204 H Total Protein 5.3 L 5.5 L Albumin 2.7 L 2.8 L Lipase 196 Hepatitis A IgM Ab Hep Bs Antigen Hep B Core IgM Ab Hep C IgG Ab Microbiology 02/18/18 16:24 Clean Catch Urine Urine Culture - Final >100,000 cfu/mL mixed gram positive brissa (probable contaminantes) 02/18/18 20:45 Blood - Peripheral Aerobic Blood Culture - Preliminary No growth in 2 days 02/18/18 20:45 Blood - Peripheral Anaerobic Blood Culture - Preliminary No growth in 2 days 02/18/18 20:35 Blood - Peripheral Aerobic Blood Culture - Preliminary No growth in 2 days 02/18/18 20:35 Blood - Peripheral Anaerobic Blood Culture - Preliminary No growth in 2 days - Imaging Impressions Cholangiopancreatography MRI 02/19/18 00:00 CONCLUSION: 1. Diffuse dilatation of the common bile duct measuring 9 mm with possible filling defect in the distal common bile duct. ERCP would be helpful for further evaluation and possible treatment if clinically indicated. 2. Mildly thickened gallbladder wall with minimal pericholecystic fluid. No definite gallstone identified. 3. Minimal ascites. Assessment and Plan - Assessment (1) Abdominal pain Code(s): R10.9 - Unspecified abdominal pain Status: Acute Plan: Cholecystitis with choledocholithiasis, probable CBD stone passed. Discussed with Dr. Reddy; if LFT's continue to trend downward, will proceed with lap cholecystectomy Feb 22, with probable IOC. As per his note, if there are CBD filling defects, then will recall GI for postop ERCP if needed. - Attending Attestation I attest that I had a [id number] encounter with the patient on the same day, and personally performed and documented my assessment and findings in the medical record. The following services were provided during this hospital visit: Chart data review, vital sign assessments/reviewing monitor data Review of consultation notes if present Medication orders/review and/or management Ordering and/or reviewing lab tests Ordering and/or interpreting/reviewing x-rays and/or diagnostic studies Care of the patient and discussion of the patient with the care team Documentation time To help prompt me to consider important information that might be impacting today's encounter and assessment, Information from prior notes written by myself or my colleagues may have been "brought forward/copy and pasted" into today's note.
[2018-02-20] MEDS: Heparin - SQ 10,000 UNITS/ML Vial SQ SCH (20:07)
[2018-02-21] MEDS: Aztreonam Inj 2 GM in Sodium Chloride 0.9% Inj 100 ML IV.SIG SCH ×3 (04:16→20:44)
[2018-02-21] MEDS: Sod Chloride 0.9% Inj 1,000 ML IV.CONT SCH (06:55)
[2018-02-21 08:08] LABS: Baso # (Auto) 0.1 th/mm3 (0.0-0.2); Baso % (Auto) 0.6 % (0.0-2.0); Eos # (Auto) 0.1 th/mm3 (0.0-0.4); Eos % (Auto) 0.7 % (0.0-4.0); Hematocrit 36.9 % (39.0-51.0); Hemoglobin 13.1 gm/dL (13.0-17.0); Lymph % (Auto) 8.8 % (9.0-44.0); Mean Corpuscular HGB Conc 35.4 % (32.0-36.0); Mean Corpuscular Hemoglobin 35.7 pg (27.0-34.0); Mean Corpuscular Volume 100.9 fL (80.0-100.0); Mean Platelet Volume 8.4 fL (7.0-11.0); Mono # (Auto) 0.8 th/mm3 (0.0-0.9); Neut # (Auto) 9.7 th/mm3 (1.8-7.7); Neut % (Auto) 82.9 % (16.0-70.0); Platelet Count 128 th/mm3 (150-450); Red Blood Count 3.66 mil/mm3 (4.50-5.90); Red Cell Distribution Width 12.7 % (11.6-17.2); White Blood Count 11.7 th/mm3 (4.0-11.0)
[2018-02-21 08:22] LABS: Chloride 111 meq/L (98-107); Potassium 3.3 meq/L (3.5-5.1); Sodium 143 meq/L (136-145)
[2018-02-21 08:27] LABS: Albumin 2.7 g/dL (3.4-5.0); Anion Gap 11 meq/L (5-15); Blood Urea Nitrogen 17 mg/dL (7-18); Calcium 7.7 mg/dL (8.5-10.1); Carbon Dioxide 20.8 meq/L (21.0-32.0); Glucose,Random 99 mg/dL (74-106); Magnesium 2.3 mg/dL (1.5-2.5)
[2018-02-21 08:30] LABS: Alanine Aminotransferase 31 U/L (12-78); Aspartate Aminotransferase 38 U/L (15-37); Glomerular Filtration Rate Greater Than 89 mL/min (>89)
[2018-02-21] MEDS: Famotidine PF Inj 20 MG/2 ML Vial IV.PUSH SCH (08:31)
[2018-02-21] MEDS: Metoprolol Tartrate 50 MG Tablet PO SCH (08:31)
[2018-02-21] MEDS: Senna/Docusate Sodium 8.6/50 MG Tablet PO SCH ×2 (08:31→20:45)
[2018-02-21 08:32] LABS: Total Protein 5.3 g/dL (6.4-8.2)
[2018-02-21] MEDS: Heparin - SQ 10,000 UNITS/ML Vial SQ SCH ×2 (08:32→20:56)
[2018-02-21 08:33] LABS: Alkaline Phosphatase 194 U/L (45-117)
--- NOTE | 2018-02-21 11:39 | P.PN ---
Subjective Interval history: Follow-up acute cholecystitis. He is doing okay denies any abdominal pain. Physical Exam Vital signs: Vital Signs 02/20/18 12:13 02/20/18 16:52 02/20/18 20:00 Temperature 98 F 99 F 98.5 F Pulse Rate 92 H 76 84 Respiratory Rate 25 H 24 24 Blood Pressure 131/66 126/64 123/65 Pulse Oximetry 95 94 L 94 L 02/21/18 00:00 02/21/18 04:00 02/21/18 06:49 Temperature 98.3 F 98.1 F 96 F L Pulse Rate 88 98 H 108 H Respiratory Rate 25 H 24 18 Blood Pressure 144/69 H 141/76 H 156/83 H Pulse Oximetry 97 94 L 02/21/18 08:00 Temperature 97.0 F L Pulse Rate 110 H Respiratory Rate 17 Blood Pressure 144/79 H Pulse Oximetry 95 Intake & Output 02/20/18 02/21/18 02/21/18 18:59 06:59 18:59 Intake Total 1675 / 1675 1640 / 1640 Output Total 400 / 400 Balance 1275 / 1275 1640 / 1640 Weight 68.3 kg Intake: IV 950 / 950 1400 / 1400 NS Inj 1,000 ML @ 70 mls/hr IV. 750 / 750 1000 / 1000 CONT .[id number] DOTTY Rx#: [id number] Azactam Inj 2 GM In NS Inj 100 100 / 100 200 / 200 ML @ 200 mls/hr IV.SIG Q8H DOTTY Rx#:[id number] Flagyl 500 MG Inj 100 ML @ 100 100 / 100 200 / 200 mls/hr IV.SIG Q8H DOTTY Rx#: [id number] Oral 725 / 725 240 / 240 Output: Urine 400 / 400 Other: # Incontinent Voids 2 # Urine Diapers 2 Date of Last Bowel Movement 02/20/18 Narrative: GENERAL: Well-developed, well-nourished in no distress SKIN: Warm and dry. CARDIOVASCULAR: Regular rate and rhythm. RESPIRATORY: No accessory muscle use. Clear to auscultation. Breath sounds equal bilaterally. GASTROINTESTINAL: Abdomen soft, nontender, nondistended. MUSCULOSKELETAL: Extremities without clubbing, cyanosis but with bilateral lower extremity mild pitting edema. No obvious deformities. NEUROLOGICAL: Awake and alert. No obvious cranial nerve deficits. Motor grossly within normal limits. Five out of 5 muscle strength in the arms and legs. Normal speech. PSYCHIATRIC: Appropriate mood and affect; insight and judgment normal. Results - Labs CBC & Chem 7: 02/21/18 07:40 02/21/18 07:40 Laboratory Results - last 24 hr 02/20/18 02/20/18 02/20/18 11:42 12:53 17:03 CBC w Diff WBC RBC Hgb Hct MCV MCH MCHC RDW Plt Count MPV Neut % (Auto) Lymph % (Auto) [place] % (Auto) Eos % (Auto) Baso % (Auto) Neut # (Auto) Lymph # (Auto) [place] # (Auto) Eos # (Auto) Baso # (Auto) WBC Differential Diff Scan Differential Comment Sodium 141 Potassium 3.8 Chloride 111 H Carbon Dioxide 19.3 L Anion Gap 11 BUN 19 H Creatinine 0.72 Estimated GFR Greater than 89 POC Glucose 79 87 Random Glucose 113 H Calcium 7.7 L Magnesium Total Bilirubin 1.8 H AST 42 H ALT 37 Alkaline Phosphatase 204 H Total Protein 5.5 L Albumin 2.8 L Lipase 196 02/20/18 02/21/18 02/21/18 20:49 07:29 07:40 CBC w Diff Slide review pending WBC 11.7 H RBC 3.66 L Hgb 13.1 Hct 36.9 L MCV 100.9 H MCH 35.7 H MCHC 35.4 RDW 12.7 Plt Count 128 L MPV 8.4 Neut % (Auto) 82.9 H Lymph % (Auto) 8.8 L [place] % (Auto) 7.0 Eos % (Auto) 0.7 Baso % (Auto) 0.6 Neut # (Auto) 9.7 H Lymph # (Auto) 1.0 [place] # (Auto) 0.8 Eos # (Auto) 0.1 Baso # (Auto) 0.1 WBC Differential . Diff Scan Auto diff confirmed Differential Comment . Sodium Potassium Chloride Carbon Dioxide Anion Gap BUN Creatinine Estimated GFR POC Glucose 97 94 Random Glucose Calcium Magnesium Total Bilirubin AST ALT Alkaline Phosphatase Total Protein Albumin Lipase 02/21/18 02/21/18 07:40 10:58 CBC w Diff WBC RBC Hgb Hct MCV MCH MCHC RDW Plt Count MPV Neut % (Auto) Lymph % (Auto) [place] % (Auto) Eos % (Auto) Baso % (Auto) Neut # (Auto) Lymph # (Auto) [place] # (Auto) Eos # (Auto) Baso # (Auto) WBC Differential Diff Scan Differential Comment Sodium 143 Potassium 3.3 L Chloride 111 H Carbon Dioxide 20.8 L Anion Gap 11 BUN 17 Creatinine 0.65 Estimated GFR Greater than 89 POC Glucose 93 Random Glucose 99 Calcium 7.7 L Magnesium 2.3 Total Bilirubin 1.8 H AST 38 H ALT 31 Alkaline Phosphatase 194 H Total Protein 5.3 L Albumin 2.7 L Lipase Microbiology 02/18/18 20:45 Blood - Peripheral Aerobic Blood Culture - Preliminary No growth in 3 days 02/18/18 20:45 Blood - Peripheral Anaerobic Blood Culture - Preliminary No growth in 3 days 02/18/18 20:35 Blood - Peripheral Aerobic Blood Culture - Preliminary No growth in 3 days 02/18/18 20:35 Blood - Peripheral Anaerobic Blood Culture - Preliminary No growth in 3 days 02/18/18 16:24 Clean Catch Urine Urine Culture - Final >100,000 cfu/mL mixed gram positive brissa (probable contaminantes) Assessment and Plan - Plan This is a 82-year-old male with a history of prostate cancer status post surgery , iron deficiency anemia, GERD, gastric varices, gout, hypertension, CAD status post [place]/stent and hyperlipidemia. He presents with abdominal pain, nausea and vomiting. Abdominal CT showing right upper quadrant acute inflammatory changes that appeared to represent cholecystitis or duodenitis or a combination. Gallbladder sonogram shows abnormal gallbladder wall pericholecystic fluid. Also has abnormal liver function tests with total bilirubin 3.2, AST of 112, ALT of 83 alkaline phosphatase of 250 and lipase of 3728. Severe sepsis. Resolved UTI. Culture with contaminants. Gallstone pancreatitis. Abnormal liver function test and elevated lipase with abnormal CT showing possible cholecystitis or duodenitis or combination. Gallbladder sonogram shows abnormal gallbladder wall thickening and pericholecystic fluid. MRCP with dilated CBD without filling defect per GI. Abnormal liver function tests and lipase improving. He is clinically stable. Advance to full liquid diet. Continue aztreonam, Flagyl, IV hydration and pain management with IV morphine counseled regarding narcotics. General surgery has been consulted will do lap carly with IOC in am may need ERCP by GI. Continue PPI. DVT prophylaxis with SCD and early ambulation. Subcu heparin today then DC prior to ERCP
--- NOTE | 2018-02-21 19:32 | P.PNGS ---
Subjective Interval history: Tolerating full liquids Physical Exam Vital signs: Vital Signs 02/20/18 20:00 02/21/18 00:00 02/21/18 04:00 Temperature 98.5 F 98.3 F 98.1 F Pulse Rate 84 88 98 H Respiratory Rate 24 25 H 24 Blood Pressure 123/65 144/69 H 141/76 H Pulse Oximetry 94 L 97 02/21/18 06:49 02/21/18 08:00 02/21/18 12:00 Temperature 96 F L 97.0 F L 98.1 F Pulse Rate 108 H 110 H 96 H Respiratory Rate 18 17 19 Blood Pressure 156/83 H 144/79 H 141/63 H Pulse Oximetry 94 L 95 97 Intake & Output 02/21/18 02/21/18 02/22/18 06:59 18:59 06:59 Intake Total 1640 / 1640 540 / 540 Balance 1640 / 1640 540 / 540 Weight 68.3 kg Intake: IV 1400 / 1400 540 / 540 NS Inj 1,000 ML @ 70 mls/hr IV. 1000 / 1000 340 / 340 CONT .[id number] DOTTY Rx#: [id number] Azactam Inj 2 GM In NS Inj 100 200 / 200 100 / 100 ML @ 200 mls/hr IV.SIG Q8H DOTTY Rx#:[id number] Flagyl 500 MG Inj 100 ML @ 100 200 / 200 100 / 100 mls/hr IV.SIG Q8H DOTTY Rx#: [id number] Oral 240 / 240 Other: # Incontinent Voids 2 # Urine Diapers 2 Date of Last Bowel Movement 02/20/18 - Routine Abdominal Exam Present: soft Comments: No tenderness Results - Labs 02/21/18 07:40 02/21/18 07:40 Laboratory Results - last 24 hr 02/20/18 02/21/18 02/21/18 20:49 07:29 07:40 CBC w Diff Slide review pending WBC 11.7 H RBC 3.66 L Hgb 13.1 Hct 36.9 L MCV 100.9 H MCH 35.7 H MCHC 35.4 RDW 12.7 Plt Count 128 L MPV 8.4 Neut % (Auto) 82.9 H Lymph % (Auto) 8.8 L [place] % (Auto) 7.0 Eos % (Auto) 0.7 Baso % (Auto) 0.6 Neut # (Auto) 9.7 H Lymph # (Auto) 1.0 [place] # (Auto) 0.8 Eos # (Auto) 0.1 Baso # (Auto) 0.1 WBC Differential . Diff Scan Auto diff confirmed Differential Comment . Sodium Potassium Chloride Carbon Dioxide Anion Gap BUN Creatinine Estimated GFR POC Glucose 97 94 Random Glucose Calcium Magnesium Total Bilirubin AST ALT Alkaline Phosphatase Total Protein Albumin 02/21/18 02/21/18 02/21/18 07:40 10:58 16:19 CBC w Diff WBC RBC Hgb Hct MCV MCH MCHC RDW Plt Count MPV Neut % (Auto) Lymph % (Auto) [place] % (Auto) Eos % (Auto) Baso % (Auto) Neut # (Auto) Lymph # (Auto) [place] # (Auto) Eos # (Auto) Baso # (Auto) WBC Differential Diff Scan Differential Comment Sodium 143 Potassium 3.3 L Chloride 111 H Carbon Dioxide 20.8 L Anion Gap 11 BUN 17 Creatinine 0.65 Estimated GFR Greater than 89 POC Glucose 93 92 Random Glucose 99 Calcium 7.7 L Magnesium 2.3 Total Bilirubin 1.8 H AST 38 H ALT 31 Alkaline Phosphatase 194 H Total Protein 5.3 L Albumin 2.7 L - Imaging Imaging: ITS Impressions Abdomen X-Ray 02/18/18 16:09 CONCLUSION: Unremarkable bowel gas pattern. Abdomen/Pelvis CT 02/18/18 18:05 CONCLUSION: 1. Right upper quadrant acute inflammatory changes that appear to represent cholecystitis, duodenitis or a combination of the two. 2. There is small ascites. Nothing organized or loculated. 3. No bowel obstruction. 4. [place] diverticulosis of the sigmoid colon without evidence of diverticulitis. 5. 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 No aneurysm. Gallbladder Ultrasound 02/18/18 20:35 CONCLUSION: Abnormal gallbladder with wall thickening and pericholecystic fluid. Acute cholecystitis possible in the proper clinical setting. No stones are demonstrated. No evidence of biliary obstruction. Cholangiopancreatography MRI 02/19/18 00:00 CONCLUSION: 1. Diffuse dilatation of the common bile duct measuring 9 mm with possible filling defect in the distal common bile duct. ERCP would be helpful for further evaluation and possible treatment if clinically indicated. 2. Mildly thickened gallbladder wall with minimal pericholecystic fluid. No definite gallstone identified. 3. Minimal ascites. Assessment and Plan - Assessment (1) Abdominal pain Code(s): R10.9 - Unspecified abdominal pain Status: Acute Plan: 82 year old male with RUQ tenderness; elevated LFTs that are trending down -IVF Plan laparoscopic cholecystectomy in the a.m. I have discussed risks of the procedure including but not limited to: Bleeding, infection, bile duct injury, bowel injury and the possible need for postoperative ERCP. I discussed remedies consequences alternatives and convalescence; he vocalizes understanding and agrees to proceed. - Attending Attestation I attest that I had a [id number] encounter with the patient on the same day, and personally performed and documented my assessment and findings in the medical record. The following services were provided during this hospital visit: Chart data review, vital sign assessments/reviewing monitor data Review of consultation notes if present Medication orders/review and/or management Ordering and/or reviewing lab tests Ordering and/or interpreting/reviewing x-rays and/or diagnostic studies Care of the patient and discussion of the patient with the care team Documentation time To help prompt me to consider important information that might be impacting today's encounter and assessment, Information from prior notes written by myself or my colleagues may have been "brought forward/copy and pasted" into today's note.
[2018-02-21] MEDS: Famotidine 20 MG Tablet PO SCH (20:44)
[2018-02-22 00:34] LABS: Hematocrit 39.9 % (39.0-51.0); Hemoglobin 13.5 gm/dL (13.0-17.0); Mean Corpuscular HGB Conc 33.8 % (32.0-36.0); Mean Corpuscular Hemoglobin 33.9 pg (27.0-34.0); Mean Corpuscular Volume 100.3 fL (80.0-100.0); Mean Platelet Volume 8.3 fL (7.0-11.0); Platelet Count 161 th/mm3 (150-450); Red Blood Count 3.97 mil/mm3 (4.50-5.90); Red Cell Distribution Width 12.9 % (11.6-17.2); White Blood Count 11.6 th/mm3 (4.0-11.0)
[2018-02-22 00:41] LABS: Chloride 111 meq/L (98-107); Potassium 3.7 meq/L (3.5-5.1); Sodium 141 meq/L (136-145)
[2018-02-22 00:43] LABS: Calcium 7.6 mg/dL (8.5-10.1)
[2018-02-22 00:44] LABS: Anion Gap 11 meq/L (5-15); Blood Urea Nitrogen 15 mg/dL (7-18); Carbon Dioxide 19.3 meq/L (21.0-32.0); Glucose,Random 98 mg/dL (74-106)
[2018-02-22 00:47] LABS: Glomerular Filtration Rate Greater Than 89 mL/min (>89)
[2018-02-22] MEDS: Aztreonam Inj 2 GM in Sodium Chloride 0.9% Inj 100 ML IV.SIG SCH ×3 (04:40→21:50)
[2018-02-22] MEDS: Sod Chloride 0.9% Inj 1,000 ML IV.CONT SCH ×2 (06:36→21:59)
[2018-02-22] MEDS ORDERED: Bupivacaine/Epinephrine Inj 0.25% 50 ML Vial ONE ×2 (07:14→08:08)
[2018-02-22] MEDS ORDERED: Chlorhexidine Gluconate 2% 1 Pack (2 Cloths) TOPICAL ONE (07:48)
[2018-02-22] MEDS ORDERED: Metoprolol Tartrate 25 MG Tablet PO ONE (07:48)
[2018-02-22] MEDS ORDERED: Sodium Chlor 0.9% Inj 500 ML IV.SIG SCH (08:00)
[2018-02-22] MEDS ORDERED: Metoprolol Inj 5 MG/5 ML Vial IV.PUSH ONE (08:07)
[2018-02-22] MEDS ORDERED: Esmolol Bolus Inj 100 MG/10 ML Vial IV.PUSH ONE (08:07)
[2018-02-22] MEDS ORDERED: Lidocaine PF 1% Inj 5 ML Syringe INFILTRATN ONE (08:07)
[2018-02-22] MEDS ORDERED: Phenylephrine/NS 1000 MCG/10ML Syringe IV.PUSH ONE (08:07)
[2018-02-22] MEDS ORDERED: Neostigmine Inj 5 MG/5 ML Syringe IV.PUSH ONE (08:07)
--- NOTE | 2018-02-22 09:48 | P.OP ---
- Preoperative Diagnosis (1) Cholecystitis - Postoperative Diagnosis (1) Acute gangrenous cholecystitis (2) Cirrhosis of liver Date of procedure: 02/22/18 Procedure: 1. Laparoscopic cholecystectomy 2. Laparoscopic Jaquan-Cut liver biopsy Surgeon: Danilo Mccoy MD Buttoner: Lisa Hernandez MS 3 Estimated blood loss (mL): 300 IV fluids (mL): 1,000 Pathology: other (Gallbladder and contents, Jaquan-Cut liver biopsies) Operation and Findings: Patient was taken to the operating room and placed on the operating table in the supine position. After an adequate level of general endotracheal anesthesia was achieved, the abdomen was prepped and draped in the usual fashion. Time-out was taken, confirming the correct patient, site, and procedure to be performed. Skin and subcutaneous tissue was infiltrated with local anesthetic and an incision made in the umbilicus and carried through the fascia sharply. The peritoneal cavity was directly visualized. A 12 mm balloon trocar was inserted and the balloon inflated. The abdomen was insufflated. The patient was placed in reverse Trendelenburg position. Three 5 mm trocars were then placed, with the first to the right of the falciform ligament and second and third in the right subcostal region. All entered the abdominal cavity under direct vision uneventfully. The liver appeared to have cirrhotic changes,with a moderate amount of ascites present, and the gallbladder had omentum firmly adhered to it. The omentum was taken down with blunt dissection, gallbladder punctured and approximately 25 ml of dark green bile was removed. This allowed the gallbladder to be decompressed partially so that it could be grasped and retracted upward. While further dissection of the omentum was accomplished, the gallbladder wall appeared to be frankly gangrenous in spots. The cystic duct-infundibular junction and cystic artery could actually be dissected free from the surrounding necrotic tissue. The cystic artery was doubly clipped proximally, singly clipped on the gallbladder side and divided. The cystic duct had a large amount of inflammatory tissue around it, and there was significant concern that the clips would not be able to be placed completely across the duct. Thus dissection was accomplished in a dome down fashion with plans to place a PDS Endoloop around the cystic duct. Due to the significant amount of inflammation, a cholangiogram was not taken. The gallbladder was taken down off the liver bed with electrocautery. Careful dissection by retracting the gallbladder downward and then to the left allowed for the gallbladder wall to be dissected off of the liver bed. Bleeding points were controlled with electrocautery during the dissection. When the infundibulum had been dissected free from the liver bed, a 0 PDS Endoloop was slipped over the gallbladder and cinched down near the cystic duct just past the infundibulum. The gallbladder was then sharply divided and placed into an Endo Catch device and removed via the umbilical port while observing via the upper 5 mm trocar site. The specimen was passed off the table. The upper abdomen was revisualized and bleeding points on the liver bed were controlled with electrocautery. A very small bleeding point on the cystic duct stump was controlled with minimal use of electrocautery. A Jaquan-Cut needle was brought in via separate stab incision and 3 cores of tissue were removed. The biopsy sites were controlled with electrocautery. The specimens were placed in formalin for specimen analysis. This would serve as a baseline for the patient. Further copious irrigation ensued and with hemostasis assured, the patient had placement of a MARVIN drain due to the gangrenous changes in the gallbladder and presence of ascites. This was brought in via the upper 5 mm trocar site and out via the lateralmost 5 mm trocar site. It was fixed to the skin with a 3-0 nylon suture. The drain was placed in the liver bed and near the cystic duct and cystic artery stumps. The abdomen was desufflated and the remaining trocars were removed. No bleeding was noted from the trocar sites. The laparoscope and umbilical port were then removed. The fascia was closed in the umbilicus with 0 Vicryl suture in both a simple interrupted and [id number] fashion. Remaining local anesthetic was injected into the trocar sites. The skin was closed at the remaining trocar sites with 4-0 Vicryl. Sponge and needle counts were reported to be correct. All sites were dressed with Steri- Strips except for the drain site which was dressed with 4 x 4's and Medipore tape. The patient was extubated and taken back to the recovery room in stable condition.
[2018-02-22] MEDS ORDERED: fentaNYL Citrate Inj 100 MCG/2 ML Ampul ONE (09:56)
[2018-02-22 10:18] LABS: Hematocrit 38.9 % (39.0-51.0); Hemoglobin 13.5 gm/dL (13.0-17.0)
--- NOTE | 2018-02-22 10:58 | ECG ---
Date Performed: 02/21/2018 Time Performed: 18:16:15 PTAGE: 82 years EKG: Sinus rhythm RIGHT BUNDLE BRANCH BLOCK LEFT ANTERIOR FASCICULAR BLOCK PROBABLE SEPTAL MYOCARDIAL INFARCTION [place] red to previous tracing the patient has a new Right bundle branch block ABNORMAL ECG PREVIOUS TRACING : 09/12/2006 06.42 DOCTOR: Miguelina Coates Interpretating Date/Time 02/22/2018 10:56:56
[2018-02-22] MEDS: Famotidine 20 MG Tablet PO SCH ×2 (11:36→21:56)
[2018-02-22] MEDS: Metoprolol Tartrate 50 MG Tablet PO SCH (11:36)
[2018-02-22] MEDS: Senna/Docusate Sodium 8.6/50 MG Tablet PO SCH ×2 (11:36→21:56)
--- NOTE | 2018-02-22 12:00 | P.PN ---
Subjective Interval history: Follow-up lap carly. Tolerated procedure denies any complaints at this time. Discussed with GS, repeat CBC in the morning. Patient has a MARVIN drain possible discharge once a day. Also has a cirrhotic looking liver on inspection, he will alert patient's GI Physical Exam Vital signs: Vital Signs 02/21/18 12:00 02/21/18 20:00 02/22/18 00:00 Temperature 98.1 F 96.4 F L 97.8 F Pulse Rate 96 H 92 H 99 H Respiratory Rate 19 18 18 Blood Pressure 141/63 H 125/73 158/99 H Pulse Oximetry 97 94 L 94 L 02/22/18 04:00 02/22/18 06:50 02/22/18 09:45 Temperature 97.1 F L 98.1 F 98.8 F Pulse Rate 103 H 104 H 91 H Respiratory Rate 18 20 14 Blood Pressure 149/91 H 148/90 H 122/53 L Pulse Oximetry 93 L 95 96 02/22/18 10:00 02/22/18 10:15 02/22/18 10:30 Temperature Pulse Rate 80 85 86 Respiratory Rate 16 14 14 Blood Pressure 95/51 L 120/58 L 128/61 Pulse Oximetry 96 95 128 H 02/22/18 10:45 Temperature 97.5 F L Pulse Rate 88 Respiratory Rate 14 Blood Pressure 123/61 Pulse Oximetry 97 Intake & Output 02/21/18 02/22/18 02/22/18 18:59 06:59 18:59 Intake Total 540 / 540 500 / 500 2300 / 2300 Output Total 250 / 250 1263 / 1263 Balance 540 / 540 250 / 250 1037 / 1037 Weight 68.3 kg Intake: IV 540 / 540 300 / 300 1100 / 1100 NS Inj 1,000 ML @ 70 mls/hr IV. 340 / 340 CONT .[id number] DOTTY Rx#: [id number] Azactam Inj 2 GM In NS Inj 100 100 / 100 200 / 200 ML @ 200 mls/hr IV.SIG Q8H DOTTY Rx#:[id number] LR 1000 mL Inj 1,000 ML @ 30 1000 / 1000 mls/hr IV.SIG .Q24H DOTTY Rx#: [id number] Flagyl 500 MG Inj 100 ML @ 100 100 / 100 100 / 100 100 / 100 mls/hr IV.SIG Q8H DOTTY Rx#: [id number] Oral 200 / 200 0 / 0 Anesthesia Amount 1100 / 1100 Other 100 / 100 Output: Blood Draw 3 / 3 Urine 250 / 250 Estimated Blood Loss 600 / 600 Wound Drainage 660 / 660 # 1 Abdomen MARVIN Drain 260 / 260 Right Abdomen 400 / 400 Other: # Incontinent Voids 1 # Urine Diapers 2 # Bowel Movements 2 Narrative: GENERAL: Well-developed, well-nourished in no distress SKIN: Warm and dry. CARDIOVASCULAR: Regular rate and rhythm. RESPIRATORY: No accessory muscle use. Clear to auscultation. Breath sounds equal bilaterally. GASTROINTESTINAL: Abdomen soft, trocar sites with tenderness, no signs of infection, nondistended. MUSCULOSKELETAL: Extremities without clubbing, cyanosis but with bilateral lower extremity mild pitting edema. No obvious deformities. NEUROLOGICAL: Awake and alert. No obvious cranial nerve deficits. Motor grossly within normal limits. Five out of 5 muscle strength in the arms and legs. Normal speech. PSYCHIATRIC: Appropriate mood and affect; insight and judgment normal. Results - Labs CBC & Chem 7: 02/22/18 10:10 02/22/18 00:15 Laboratory Results - last 24 hr 02/21/18 02/22/18 02/22/18 16:19 00:15 00:15 WBC 11.6 H RBC 3.97 L Hgb 13.5 Hct 39.9 MCV 100.3 H MCH 33.9 MCHC 33.8 RDW 12.9 Plt Count 161 MPV 8.3 Sodium 141 Potassium 3.7 Chloride 111 H Carbon Dioxide 19.3 L Anion Gap 11 BUN 15 Creatinine 0.58 L Estimated GFR Greater than 89 POC Glucose 92 Random Glucose 98 Calcium 7.6 L 02/22/18 02/22/18 04:45 10:10 WBC RBC Hgb 13.5 Hct 38.9 L MCV MCH MCHC RDW Plt Count MPV Sodium Potassium Chloride Carbon Dioxide Anion Gap BUN Creatinine Estimated GFR POC Glucose 98 Random Glucose Calcium Microbiology 02/18/18 20:45 Blood - Peripheral Aerobic Blood Culture - Preliminary No growth in 4 days 02/18/18 20:45 Blood - Peripheral Anaerobic Blood Culture - Preliminary No growth in 4 days 02/18/18 20:35 Blood - Peripheral Aerobic Blood Culture - Preliminary No growth in 4 days 02/18/18 20:35 Blood - Peripheral Anaerobic Blood Culture - Preliminary No growth in 4 days - Procedures Laparoscopic cholecystectomy Assessment and Plan - Plan This is a 82-year-old male with a history of prostate cancer status post surgery , iron deficiency anemia, GERD, gastric varices, gout, hypertension, CAD status post [place]/stent and hyperlipidemia. He presents with abdominal pain, nausea and vomiting. Abdominal CT showing right upper quadrant acute inflammatory changes that appeared to represent cholecystitis or duodenitis or a combination. Gallbladder sonogram shows abnormal gallbladder wall pericholecystic fluid. Also has abnormal liver function tests with total bilirubin 3.2, AST of 112, ALT of 83 alkaline phosphatase of 250 and lipase of 3728. Severe sepsis. Resolved UTI. Culture with contaminants. Gallstone pancreatitis. Abnormal liver function test and elevated lipase with abnormal CT showing possible cholecystitis or duodenitis or combination. Gallbladder sonogram shows abnormal gallbladder wall thickening and pericholecystic fluid. MRCP with dilated CBD without filling defect per GI. Abnormal liver function tests and lipase improving. He is clinically stable status post laparoscopic cholecystectomy. Continue aztreonam, Flagyl, IV hydration and pain management with Lortab and IV morphine counseled regarding narcotics. Postop surgical care. Repeat CBC and CMP in the morning DVT prophylaxis with SCD and early ambulation. Subcu heparin will hold secondary to surgery today Discharge Planning: Discharge per general surgery
--- NOTE | 2018-02-22 12:17 | P.DCO ---
- Diagnosis (1) Sepsis Status: Acute (2) Cholecystitis Status: Acute - Physical Therapy Order: Evaluate and treat, Improve ambulation, Strength and gait training - Home Health Nursing Order: Medical education, Wound care and dressing changes, Nursing assessment with vital signs - Case Management Consult Yes - Certification I have seen patient Jesu Cassidy on 02/22/18. My clinical findings support the need for the requested home health care services because: Deconditioned with increased weakness I certify that my clinical findings support that this patient is homebound because: Unsteady gait/balance, Unsafe to leave home unassisted (1) Sepsis Qualifiers: Sepsis type: sepsis due to unspecified organism Qualified Code(s): A41.9 - Sepsis, unspecified organism
[2018-02-22] MEDS ORDERED: Insulin NovoLOG Aspart Correctional Sugar Inj SQ SCH (17:45)
[2018-02-23] MEDS: Aztreonam Inj 2 GM in Sodium Chloride 0.9% Inj 100 ML IV.SIG SCH ×3 (03:56→20:56)
[2018-02-23 06:56] LABS: Chloride 111 meq/L (98-107); Potassium 4.4 meq/L (3.5-5.1); Sodium 142 meq/L (136-145)
[2018-02-23 06:58] LABS: Baso # (Auto) 0.1 th/mm3 (0.0-0.2); Baso % (Auto) 1.3 % (0.0-2.0); Eos % (Auto) 0.1 % (0.0-4.0); Hematocrit 31.9 % (39.0-51.0); Hemoglobin 11.3 gm/dL (13.0-17.0); Lymph # (Auto) 1.2 th/mm3 (1.0-4.8); Lymph % (Auto) 10.6 % (9.0-44.0); Mean Corpuscular HGB Conc 35.2 % (32.0-36.0); Mean Corpuscular Hemoglobin 35.6 pg (27.0-34.0); Mean Corpuscular Volume 101.1 fL (80.0-100.0); Mean Platelet Volume 8.6 fL (7.0-11.0); Mono # (Auto) 0.8 th/mm3 (0.0-0.9); Mono % (Auto) 7.5 % (0.0-8.0); Neut # (Auto) 8.8 th/mm3 (1.8-7.7); Neut % (Auto) 80.5 % (16.0-70.0); Platelet Count 155 th/mm3 (150-450); Red Blood Count 3.16 mil/mm3 (4.50-5.90); Red Cell Distribution Width 13.2 % (11.6-17.2); White Blood Count 10.9 th/mm3 (4.0-11.0)
[2018-02-23] MEDS: Senna/Docusate Sodium 8.6/50 MG Tablet PO SCH ×2 (08:35→20:56)
[2018-02-23] MEDS: Famotidine 20 MG Tablet PO SCH ×2 (08:35→20:56)
[2018-02-23] MEDS: Metoprolol Tartrate 50 MG Tablet PO SCH (08:35)
[2018-02-23 08:37] LABS: Alanine Aminotransferase 46 U/L (12-78); Albumin 2.1 g/dL (3.4-5.0); Alkaline Phosphatase 183 U/L (45-117); Anion Gap 9 meq/L (5-15); Aspartate Aminotransferase 115 U/L (15-37); Blood Urea Nitrogen 21 mg/dL (7-18); Glomerular Filtration Rate Greater Than 89 mL/min (>89); Glucose,Random 128 mg/dL (74-106); Magnesium 2.3 mg/dL (1.5-2.5)
[2018-02-23 08:51] LABS: Calcium 7.3 mg/dL (8.5-10.1)
--- NOTE | 2018-02-23 09:38 | P.PNGI ---
Subjective Interval history: Alert NAD vss afebrile tolerating po minimal pain.....MARVIN drain continues with sero sanguinous fluid OP note reviewed gangrenous GB removed IOC not performed due to necro inflammation. cirrhotic liver also noted and bxd Physical Exam Vital signs: Vital Signs 02/22/18 09:45 02/22/18 10:00 02/22/18 10:15 Temperature 98.8 F Pulse Rate 91 H 80 85 Respiratory Rate 14 16 14 Blood Pressure 122/53 L 95/51 L 120/58 L Pulse Oximetry 96 96 95 02/22/18 10:30 02/22/18 10:45 02/22/18 12:00 Temperature 97.5 F L 97.9 F Pulse Rate 86 88 93 H Respiratory Rate 14 14 20 Blood Pressure 128/61 123/61 122/66 Pulse Oximetry 128 H 97 96 02/22/18 16:00 02/22/18 20:00 02/23/18 00:00 Temperature 96.9 F L 97.4 F L 96.3 F L Pulse Rate 65 70 71 Respiratory Rate 20 18 18 Blood Pressure 120/57 L 134/68 133/68 Pulse Oximetry 94 L 94 L 94 L 02/23/18 08:00 Temperature 97.0 F L Pulse Rate 85 Respiratory Rate 16 Blood Pressure 136/77 Pulse Oximetry 92 L Intake & Output 02/22/18 02/23/18 02/23/18 18:59 06:59 18:59 Intake Total 2860 / 2860 2190 / 2190 Output Total 1813 / 1813 170 / 170 Balance 1047 / 1047 2019 / 2019 Weight 71.8 kg Intake: IV 1300 / 1300 1950 / 1950 NS Inj 1,000 ML @ 70 mls/hr IV. 1550 / 1550 CONT .[id number] DOTTY Rx#: [id number] Azactam Inj 2 GM In NS Inj 100 100 / 100 200 / 200 ML @ 200 mls/hr IV.SIG Q8H DOTTY Rx#:[id number] LR 1000 mL Inj 1,000 ML @ 30 1000 / 1000 mls/hr IV.SIG .Q24H DOTTY Rx#: [id number] Flagyl 500 MG Inj 100 ML @ 100 200 / 200 200 / 200 mls/hr IV.SIG Q8H DOTTY Rx#: [id number] Oral 360 / 360 240 / 240 Anesthesia Amount 1100 / 1100 Other 100 / 100 Output: Blood Draw Estimated Blood Loss 600 / 600 Wound Drainage 1210 / 1210 170 / 170 # 1 Abdomen MARVIN Drain 520 / 520 70 / 70 Right Abdomen 690 / 690 100 / 100 Other: # Voids 3 # Incontinent Voids 1 - Constitutional no acute distress - Routine Respiratory Exam Present: CTA bilaterally - Routine Cardiovascular Exam Present: S1, S2 - Routine Abdominal Exam Present: soft Comments: minimal tenderness near MARVIN drain... MARVIN drain intact with sero sanguinous fluid noted bs present.. Results - Labs CBC & Chem 7: 02/23/18 05:17 02/23/18 05:17 Laboratory Results - last 24 hr 02/22/18 02/22/18 02/22/18 10:10 11:38 16:39 CBC w Diff WBC RBC Hgb 13.5 Hct 38.9 L MCV MCH MCHC RDW Plt Count MPV Neut % (Auto) Lymph % (Auto) [place] % (Auto) Eos % (Auto) Baso % (Auto) Neut # (Auto) Lymph # (Auto) [place] # (Auto) Eos # (Auto) Baso # (Auto) WBC Differential Differential Comment Sodium Potassium Chloride Carbon Dioxide Anion Gap BUN Creatinine Estimated GFR POC Glucose 116 H 186 H Random Glucose Calcium Magnesium Total Bilirubin Direct Bilirubin Indirect Bilirubin AST ALT Alkaline Phosphatase Total Protein Albumin 02/22/18 02/23/18 02/23/18 21:15 05:17 05:17 CBC w Diff Auto diff final WBC 10.9 RBC 3.16 L Hgb 11.3 L D Hct 31.9 L MCV 101.1 H MCH 35.6 H MCHC 35.2 RDW 13.2 Plt Count 155 MPV 8.6 Neut % (Auto) 80.5 H Lymph % (Auto) 10.6 [place] % (Auto) 7.5 Eos % (Auto) 0.1 Baso % (Auto) 1.3 Neut # (Auto) 8.8 H Lymph # (Auto) 1.2 [place] # (Auto) 0.8 Eos # (Auto) 0.0 Baso # (Auto) 0.1 WBC Differential . Differential Comment . Sodium 142 Potassium 4.4 Chloride 111 H Carbon Dioxide 22.0 Anion Gap 9 BUN 21 H Creatinine 0.72 Estimated GFR Greater than 89 POC Glucose 163 H Random Glucose 128 H Calcium 7.3 L* Magnesium 2.3 Total Bilirubin 0.9 Direct Bilirubin 0.3 H Indirect Bilirubin 0.6 AST 115 H ALT 46 Alkaline Phosphatase 183 H Total Protein 4.5 L D Albumin 2.1 L D 02/23/18 08:07 CBC w Diff WBC RBC Hgb Hct MCV MCH MCHC RDW Plt Count MPV Neut % (Auto) Lymph % (Auto) [place] % (Auto) Eos % (Auto) Baso % (Auto) Neut # (Auto) Lymph # (Auto) [place] # (Auto) Eos # (Auto) Baso # (Auto) WBC Differential Differential Comment Sodium Potassium Chloride Carbon Dioxide Anion Gap BUN Creatinine Estimated GFR POC Glucose 124 H Random Glucose Calcium Magnesium Total Bilirubin Direct Bilirubin Indirect Bilirubin AST ALT Alkaline Phosphatase Total Protein Albumin Microbiology 02/18/18 20:45 Blood - Peripheral Aerobic Blood Culture - Preliminary No growth in 4 days 02/18/18 20:45 Blood - Peripheral Anaerobic Blood Culture - Preliminary No growth in 4 days 02/18/18 20:35 Blood - Peripheral Aerobic Blood Culture - Preliminary No growth in 4 days 02/18/18 20:35 Blood - Peripheral Anaerobic Blood Culture - Preliminary No growth in 4 days - Procedures Laparoscopic cholecystectomy Assessment and Plan (1) Acute gallstone pancreatitis Status: Acute Code(s): K85.10 - Biliary acute pancreatitis without necrosis or infection (2) Cholecystitis Status: Acute Code(s): K81.9 - Cholecystitis, unspecified (3) Cirrhosis Status: Acute Code(s): K74.60 - Unspecified cirrhosis of liver (4) Cirrhosis of liver Status: Acute Code(s): K74.60 - Unspecified cirrhosis of liver - Attending Attestation Monitor lfts, await liver bx continue post operative care...if liver enzymes rise could consider repeat MRCP at some point..Dr Pena will f /u..Please note pt also admits to heavy ETOH use in past mostly beer 6pk /day x many yrs but he states he DCD x 3-4 yrs ago. 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
--- NOTE | 2018-02-23 09:55 | P.PNGS ---
Subjective Interval history: Eating breakfast No issues overnight Pain controlled Physical Exam Vital signs: Vital Signs 02/22/18 10:00 02/22/18 10:15 02/22/18 10:30 Temperature Pulse Rate 80 85 86 Respiratory Rate 16 14 14 Blood Pressure 95/51 L 120/58 L 128/61 Pulse Oximetry 96 95 128 H 02/22/18 10:45 02/22/18 12:00 02/22/18 16:00 Temperature 97.5 F L 97.9 F 96.9 F L Pulse Rate 88 93 H 65 Respiratory Rate 14 20 20 Blood Pressure 123/61 122/66 120/57 L Pulse Oximetry 97 96 94 L 02/22/18 20:00 02/23/18 00:00 02/23/18 08:00 Temperature 97.4 F L 96.3 F L 97.0 F L Pulse Rate 70 71 85 Respiratory Rate 18 18 16 Blood Pressure 134/68 133/68 136/77 Pulse Oximetry 94 L 94 L 92 L Intake & Output 02/22/18 02/23/18 02/23/18 18:59 06:59 18:59 Intake Total 2860 / 2860 2190 / 2190 Output Total 1813 / 1813 170 / 170 Balance 1047 / 1047 2019 / 2020 Weight 71.8 kg Intake: IV 1300 / 1300 1950 / 1950 NS Inj 1,000 ML @ 70 mls/hr IV. 1550 / 1550 CONT .[id number] DOTTY Rx#: [id number] Azactam Inj 2 GM In NS Inj 100 100 / 100 200 / 200 ML @ 200 mls/hr IV.SIG Q8H DOTTY Rx#:[id number] LR 1000 mL Inj 1,000 ML @ 30 1000 / 1000 mls/hr IV.SIG .Q24H DOTTY Rx#: [id number] Flagyl 500 MG Inj 100 ML @ 100 200 / 200 200 / 200 mls/hr IV.SIG Q8H DOTTY Rx#: [id number] Oral 360 / 360 240 / 240 Anesthesia Amount 1100 / 1100 Other 100 / 100 Output: Blood Draw 3 / 3 Estimated Blood Loss 600 / 600 Wound Drainage 1210 / 1210 170 / 170 # 1 Abdomen MARVIN Drain 520 / 520 70 / 70 Right Abdomen 690 / 690 100 / 100 Other: # Voids 3 # Incontinent Voids 1 Narrative: Alert and awake Abd: soft; minimally tender; MARVIN with serosanguineous drainage Results - Labs 02/27/18 06:00 02/27/18 06:00 Laboratory Results - last 24 hr 02/22/18 02/22/18 02/22/18 10:10 11:38 16:39 CBC w Diff WBC RBC Hgb 13.5 Hct 38.9 L MCV MCH MCHC RDW Plt Count MPV Neut % (Auto) Lymph % (Auto) [place] % (Auto) Eos % (Auto) Baso % (Auto) Neut # (Auto) Lymph # (Auto) [place] # (Auto) Eos # (Auto) Baso # (Auto) WBC Differential Differential Comment Sodium Potassium Chloride Carbon Dioxide Anion Gap BUN Creatinine Estimated GFR POC Glucose 116 H 186 H Random Glucose Calcium Magnesium Total Bilirubin Direct Bilirubin Indirect Bilirubin AST ALT Alkaline Phosphatase Total Protein Albumin 02/22/18 02/23/18 02/23/18 21:15 05:17 05:17 CBC w Diff Auto diff final WBC 10.9 RBC 3.16 L Hgb 11.3 L D Hct 31.9 L MCV 101.1 H MCH 35.6 H MCHC 35.2 RDW 13.2 Plt Count 155 MPV 8.6 Neut % (Auto) 80.5 H Lymph % (Auto) 10.6 [place] % (Auto) 7.5 Eos % (Auto) 0.1 Baso % (Auto) 1.3 Neut # (Auto) 8.8 H Lymph # (Auto) 1.2 [place] # (Auto) 0.8 Eos # (Auto) 0.0 Baso # (Auto) 0.1 WBC Differential . Differential Comment . Sodium 142 Potassium 4.4 Chloride 111 H Carbon Dioxide 22.0 Anion Gap 9 BUN 21 H Creatinine 0.72 Estimated GFR Greater than 89 POC Glucose 163 H Random Glucose 128 H Calcium 7.3 L* Magnesium 2.3 Total Bilirubin 0.9 Direct Bilirubin 0.3 H Indirect Bilirubin 0.6 AST 115 H ALT 46 Alkaline Phosphatase 183 H Total Protein 4.5 L D Albumin 2.1 L D 02/23/18 08:07 CBC w Diff WBC RBC Hgb Hct MCV MCH MCHC RDW Plt Count MPV Neut % (Auto) Lymph % (Auto) [place] % (Auto) Eos % (Auto) Baso % (Auto) Neut # (Auto) Lymph # (Auto) [place] # (Auto) Eos # (Auto) Baso # (Auto) WBC Differential Differential Comment Sodium Potassium Chloride Carbon Dioxide Anion Gap BUN Creatinine Estimated GFR POC Glucose 124 H Random Glucose Calcium Magnesium Total Bilirubin Direct Bilirubin Indirect Bilirubin AST ALT Alkaline Phosphatase Total Protein Albumin - Imaging Imaging: ITS Impressions Abdomen X-Ray 02/18/18 16:09 CONCLUSION: Unremarkable bowel gas pattern. Abdomen/Pelvis CT 02/18/18 18:05 CONCLUSION: 1. Right upper quadrant acute inflammatory changes that appear to represent cholecystitis, duodenitis or a combination of the two. 2. There is small ascites. Nothing organized or loculated. 3. No bowel obstruction. 4. Florid diverticulosis of the sigmoid colon without evidence of diverticulitis. 5. 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 No aneurysm. Gallbladder Ultrasound 02/18/18 20:35 CONCLUSION: Abnormal gallbladder with wall thickening and pericholecystic fluid. Acute cholecystitis possible in the proper clinical setting. No stones are demonstrated. No evidence of biliary obstruction. Cholangiopancreatography MRI 02/19/18 00:00 CONCLUSION: 1. Diffuse dilatation of the common bile duct measuring 9 mm with possible filling defect in the distal common bile duct. ERCP would be helpful for further evaluation and possible treatment if clinically indicated. 2. Mildly thickened gallbladder wall with minimal pericholecystic fluid. No definite gallstone identified. 3. Minimal ascites. Assessment and Plan - Assessment (1) Abdominal pain Code(s): R10.9 - Unspecified abdominal pain Status: Acute Plan: 82 year old male with RUQ tenderness; elevated LFTs; elevated lipase -POD1 lap carly; gangrenous cholecystitis -Regular diet -Continue IV antibiotics; plan to transition to PO tomorrow -OOB as tolerated -DC IVF -I attempted to contact family but they were not able to be reached ---will try again tomorrow -Patient will go home with [facility] for MARVIN drain care Reports feeling better MARVIN output serosanguinous, voluminous I am not surprised he has high output, likely due to cirrhosis and weeping from the liver substance If output remains high, will need to try to control with lasix/aldactone/ diuretics The exam, history, and the medical decision-making described in the above note were completed with the assistance of the mid-level provider. I reviewed and agree with the findings presented. I attest that I had a [id number] encounter with the patient on the same day, and personally performed and documented my assessment and findings in the medical record.
[2018-02-23 10:14] LABS: Total Protein 4.5 g/dL (6.4-8.2)
--- NOTE | 2018-02-23 11:12 | P.PN ---
Subjective Interval history: Follow-up laparoscopic cholecystectomy. States he is sore. He has significant MARVIN drainage with serosanguineous fluid. Discussed with surgery and GI, start diuretics to help with drainage. Patient found to have cirrhosis intraoperatively history of alcohol abuse. He has gangrenous cholecystitis and will continue IV antibiotics at this time. Because of necro inflammation, IOC was not performed. If LFTs continue to rise, may need repeat MRCP or ERCP Physical Exam Vital signs: Vital Signs 02/22/18 12:00 02/22/18 16:00 02/22/18 20:00 Temperature 97.9 F 96.9 F L 97.4 F L Pulse Rate 93 H 65 70 Respiratory Rate 20 20 18 Blood Pressure 122/66 120/57 L 134/68 Pulse Oximetry 96 94 L 94 L 02/23/18 00:00 02/23/18 08:00 Temperature 96.3 F L 97.0 F L Pulse Rate 71 85 Respiratory Rate 18 16 Blood Pressure 133/68 136/77 Pulse Oximetry 94 L 92 L Intake & Output 02/22/18 02/23/18 02/23/18 18:59 06:59 18:59 Intake Total 2860 / 2860 2190 / 2190 Output Total 1813 / 1813 170 / 170 Balance 1047 / 1047 2019 / 2019 Weight 71.8 kg Intake: IV 1300 / 1300 1950 / 1950 NS Inj 1,000 ML @ 70 mls/hr IV. 1550 / 1550 CONT .[id number] DOTTY Rx#: [id number] Azactam Inj 2 GM In NS Inj 100 100 / 100 200 / 200 ML @ 200 mls/hr IV.SIG Q8H DOTTY Rx#:[id number] LR 1000 mL Inj 1,000 ML @ 30 1000 / 1000 mls/hr IV.SIG .Q24H DOTTY Rx#: [id number] Flagyl 500 MG Inj 100 ML @ 100 200 / 200 200 / 200 mls/hr IV.SIG Q8H DOTTY Rx#: [id number] Oral 360 / 360 240 / 240 Anesthesia Amount 1100 / 1100 Other 100 / 100 Output: Blood Draw 3 / 3 Estimated Blood Loss 600 / 600 Wound Drainage 1210 / 1210 170 / 170 # 1 Abdomen MARVIN Drain 520 / 520 70 / 70 Right Abdomen 690 / 690 100 / 100 Other: # Voids 3 # Incontinent Voids 1 Narrative: GENERAL: Well-developed, well-nourished in no distress SKIN: Warm and dry. CARDIOVASCULAR: Regular rate and rhythm. RESPIRATORY: No accessory muscle use. Clear to auscultation. Breath sounds equal bilaterally. GASTROINTESTINAL: Abdomen soft, trocar sites with tenderness, no signs of infection, nondistended. MUSCULOSKELETAL: Extremities without clubbing, cyanosis but with bilateral lower extremity mild pitting edema. No obvious deformities. NEUROLOGICAL: Awake and alert. No obvious cranial nerve deficits. Motor grossly within normal limits. Five out of 5 muscle strength in the arms and legs. Normal speech. Results - Labs CBC & Chem 7: 02/23/18 05:17 10 05:17 Laboratory Results - last 24 hr 02/22/18 02/22/18 02/22/18 11:38 16:39 21:15 CBC w Diff WBC RBC Hgb Hct MCV MCH MCHC RDW Plt Count MPV Neut % (Auto) Lymph % (Auto) [place] % (Auto) Eos % (Auto) Baso % (Auto) Neut # (Auto) Lymph # (Auto) [place] # (Auto) Eos # (Auto) Baso # (Auto) WBC Differential Differential Comment Sodium Potassium Chloride Carbon Dioxide Anion Gap BUN Creatinine Estimated GFR POC Glucose 116 H 186 H 163 H Random Glucose Calcium Prot Corrected Calcium Magnesium Total Bilirubin Direct Bilirubin Indirect Bilirubin AST ALT Alkaline Phosphatase Total Protein Albumin 02/23/18 02/23/18 02/23/18 05:17 05:17 08:07 CBC w Diff Auto diff final WBC 10.9 RBC 3.16 L Hgb 11.3 L D Hct 31.9 L MCV 101.1 H MCH 35.6 H MCHC 35.2 RDW 13.2 Plt Count 155 MPV 8.6 Neut % (Auto) 80.5 H Lymph % (Auto) 10.6 [place] % (Auto) 7.5 Eos % (Auto) 0.1 Baso % (Auto) 1.3 Neut # (Auto) 8.8 H Lymph # (Auto) 1.2 [place] # (Auto) 0.8 Eos # (Auto) 0.0 Baso # (Auto) 0.1 WBC Differential . Differential Comment . Sodium 142 Potassium 4.4 Chloride 111 H Carbon Dioxide 22.0 Anion Gap 9 BUN 21 H Creatinine 0.72 Estimated GFR Greater than 89 POC Glucose 124 H Random Glucose 128 H Calcium 7.3 L* Prot Corrected Calcium 8.8 Magnesium 2.3 Total Bilirubin 0.9 Direct Bilirubin 0.3 H Indirect Bilirubin 0.6 AST 115 H ALT 46 Alkaline Phosphatase 183 H Total Protein 4.5 L D Albumin 2.1 L D Microbiology 02/18/18 20:45 Blood - Peripheral Aerobic Blood Culture - Final No growth in 5 days 02/18/18 20:45 Blood - Peripheral Anaerobic Blood Culture - Final No growth in 5 days 02/18/18 20:35 Blood - Peripheral Aerobic Blood Culture - Final No growth in 5 days 02/18/18 20:35 Blood - Peripheral Anaerobic Blood Culture - Final No growth in 5 days - Imaging ITS Impressions Abdomen X-Ray 02/18/18 16:09 CONCLUSION: Unremarkable bowel gas pattern. Abdomen/Pelvis CT 02/18/18 18:05 CONCLUSION: 1. Right upper quadrant acute inflammatory changes that appear to represent cholecystitis, duodenitis or a combination of the two. 2. There is small ascites. Nothing organized or loculated. 3. No bowel obstruction. 4. Florid diverticulosis of the sigmoid colon without evidence of diverticulitis. 5. 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 No aneurysm. Gallbladder Ultrasound 02/18/18 20:35 CONCLUSION: Abnormal gallbladder with wall thickening and pericholecystic fluid. Acute cholecystitis possible in the proper clinical setting. No stones are demonstrated. No evidence of biliary obstruction. Cholangiopancreatography MRI 02/19/18 00:00 CONCLUSION: 1. Diffuse dilatation of the common bile duct measuring 9 mm with possible filling defect in the distal common bile duct. ERCP would be helpful for further evaluation and possible treatment if clinically indicated. 2. Mildly thickened gallbladder wall with minimal pericholecystic fluid. No definite gallstone identified. 3. Minimal ascites. - Procedures Laparoscopic cholecystectomy Assessment and Plan - Assessment (1) Sepsis Code(s): A41.9 - Sepsis, unspecified organism Status: Acute (2) Cholecystitis Code(s): K81.9 - Cholecystitis, unspecified Status: Acute - Plan This is a 82-year-old male with a history of prostate cancer status post surgery , iron deficiency anemia, GERD, gastric varices, gout, hypertension, CAD status post LA/stent and hyperlipidemia. He presents with abdominal pain, nausea and vomiting. Abdominal CT showing right upper quadrant acute inflammatory changes that appeared to represent cholecystitis or duodenitis or a combination. Gallbladder sonogram shows abnormal gallbladder wall pericholecystic fluid. Also has abnormal liver function tests with total bilirubin 3.2, AST of 112, ALT of 83 alkaline phosphatase of 250 and lipase of 3728. Severe sepsis. Resolved UTI. Culture with contaminants. Gallstone pancreatitis. Resolved Gangrenous cholecystitis status post cholecystectomy. MRCP with dilated CBD without filling defect per GI. He has significant MARVIN drainage with serosanguineous fluid. Discussed with surgery and GI, start diuretics (IV Lasix and Aldactone) to help with drainage. Patient found to have cirrhosis intraoperatively history of alcohol abuse. Because of necro inflammation, IOC was not performed. If LFTs continue to rise, may need repeat MRCP or ERCP. Continue aztreonam, Flagyl will switch to p.o. tomorrow discussed with general surgery and pain management with Lortab and IV morphine counseled regarding narcotics. Postop care. Repeat CBC and CMP in the morning DVT prophylaxis with SCD and early ambulation. Subcu heparin will continue to hold secondary to significant serosanguineous MARVIN drainage Discharge Planning: Discharge per general surgery. Ideally needs to be discharged to rehab which he refused. He wants to go home to be with his demented . He has home care set up already (1) Sepsis Qualifiers: Sepsis type: sepsis due to unspecified organism Qualified Code(s): A41.9 - Sepsis, unspecified organism
[2018-02-23] MEDS: Spironolactone 25 MG Tablet PO SCH (17:09)
[2018-02-24] MEDS: Aztreonam Inj 2 GM in Sodium Chloride 0.9% Inj 100 ML IV.SIG SCH ×3 (03:06→20:40)
[2018-02-24 06:41] LABS: Baso % (Auto) 0.3 % (0.0-2.0); Eos # (Auto) 0.3 th/mm3 (0.0-0.4); Eos % (Auto) 2.9 % (0.0-4.0); Hematocrit 35.3 % (39.0-51.0); Hemoglobin 11.9 gm/dL (13.0-17.0); Lymph # (Auto) 2.2 th/mm3 (1.0-4.8); Lymph % (Auto) 18.3 % (9.0-44.0); Mean Corpuscular HGB Conc 33.8 % (32.0-36.0); Mean Corpuscular Hemoglobin 34.7 pg (27.0-34.0); Mean Corpuscular Volume 102.7 fL (80.0-100.0); Mean Platelet Volume 7.9 fL (7.0-11.0); Mono # (Auto) 0.9 th/mm3 (0.0-0.9); Mono % (Auto) 7.7 % (0.0-8.0); Neut # (Auto) 8.5 th/mm3 (1.8-7.7); Neut % (Auto) 70.8 % (16.0-70.0); Platelet Count 168 th/mm3 (150-450); Red Blood Count 3.43 mil/mm3 (4.50-5.90); White Blood Count 11.9 th/mm3 (4.0-11.0)
[2018-02-24 06:44] LABS: Chloride 109 meq/L (98-107); Potassium 3.8 meq/L (3.5-5.1); Sodium 141 meq/L (136-145)
[2018-02-24 06:55] LABS: Alanine Aminotransferase 44 U/L (12-78); Albumin 2.1 g/dL (3.4-5.0); Alkaline Phosphatase 222 U/L (45-117); Anion Gap 10 meq/L (5-15); Aspartate Aminotransferase 86 U/L (15-37); Blood Urea Nitrogen 22 mg/dL (7-18); Calcium 7.3 mg/dL (8.5-10.1); Carbon Dioxide 22.1 meq/L (21.0-32.0); Glomerular Filtration Rate Greater Than 89 mL/min (>89); Glucose,Random 92 mg/dL (74-106); Magnesium 2.1 mg/dL (1.5-2.5); Total Protein 4.4 g/dL (6.4-8.2)
[2018-02-24] MEDS: Senna/Docusate Sodium 8.6/50 MG Tablet PO SCH ×2 (08:28→20:39)
[2018-02-24] MEDS: Metoprolol Tartrate 50 MG Tablet PO SCH (08:28)
[2018-02-24] MEDS: Famotidine 20 MG Tablet PO SCH ×2 (08:28→20:39)
[2018-02-24] MEDS: Spironolactone 25 MG Tablet PO SCH ×2 (08:35→17:23)
--- NOTE | 2018-02-24 09:32 | P.PNGI ---
Subjective Interval history: Pt lying in bed with no abd pain or nausea. Has high output from MARVIN drain and looks like ascites. 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 No hx COPD or FHx liver disease. Has hx heavy etoh use. Eating solids. On diuretics. Alk Phos a little elevated but T.Bili nl. Physical Exam Vital signs: Vital Signs 02/23/18 12:00 02/23/18 16:00 02/23/18 20:00 Temperature 97.6 F 96.4 F L 97.1 F L Pulse Rate 78 67 73 Respiratory Rate 16 17 18 Blood Pressure 139/78 131/71 128/66 Pulse Oximetry 95 92 L 93 L 02/24/18 00:00 02/24/18 08:00 Temperature 98.4 F 98.5 F Pulse Rate 79 97 H Respiratory Rate 18 18 Blood Pressure 126/65 139/70 Pulse Oximetry 93 L 95 Intake & Output 02/23/18 02/24/18 02/24/18 18:59 06:59 18:59 Intake Total 1370 / 1370 420 / 420 100 / 100 Output Total 630 / 630 Balance 1370 / 1370 -210 / -210 100 / 100 Weight 71.7 kg Intake: IV 650 / 650 300 / 300 100 / 100 NS Inj 1,000 ML @ 70 mls/hr IV. 450 / 450 CONT .[id number] DOTTY Rx#: [id number] Azactam Inj 2 GM In NS Inj 100 100 / 100 200 / 200 ML @ 200 mls/hr IV.SIG Q8H DOTTY Rx#:[id number] Flagyl 500 MG Inj 100 ML @ 100 100 / 100 100 / 100 100 / 100 mls/hr IV.SIG Q8H DOTTY Rx#: [id number] Oral 720 / 720 120 / 120 Output: Wound Drainage 630 / 630 Right Abdomen 630 / 630 Other: # Voids 3 2 Date of Last Bowel Movement 02/20/18 # Bowel Movements 0 Narrative: Anicteric Breathing non-labored RR&R abd mildly distended, nontender. MARVIN drain in place with clear slightly yellow fluid in bag. bruising No LE edema Alert, Ox3 - Constitutional no acute distress Results - Labs CBC & Chem 7: 02/24/18 05:15 02/24/18 05:15 Laboratory Results - last 24 hr 02/23/18 02/23/18 02/24/18 05:17 11:24 05:15 CBC w Diff WBC RBC Hgb Hct MCV MCH MCHC RDW Plt Count MPV Neut % (Auto) Lymph % (Auto) [place] % (Auto) Eos % (Auto) Baso % (Auto) Neut # (Auto) Lymph # (Auto) [place] # (Auto) Eos # (Auto) Baso # (Auto) WBC Differential Differential Comment Sodium 141 Potassium 3.8 Chloride 109 H Carbon Dioxide 22.1 Anion Gap 10 BUN 22 H Creatinine 0.65 Estimated GFR Greater than 89 POC Glucose 117 H Random Glucose 92 Calcium 7.3 L* Prot Corrected Calcium 8.8 8.8 Magnesium 2.1 Total Bilirubin 0.9 AST 86 H ALT 44 Alkaline Phosphatase 222 H Total Protein 4.5 L D 4.4 L Albumin 2.1 L 02/24/18 05:15 CBC w Diff Auto diff final WBC 11.9 H RBC 3.43 L Hgb 11.9 L Hct 35.3 L MCV 102.7 H MCH 34.7 H MCHC 33.8 RDW 13.0 Plt Count 168 MPV 7.9 Neut % (Auto) 70.8 H Lymph % (Auto) 18.3 [place] % (Auto) 7.7 Eos % (Auto) 2.9 Baso % (Auto) 0.3 Neut # (Auto) 8.5 H Lymph # (Auto) 2.2 [place] # (Auto) 0.9 Eos # (Auto) 0.3 Baso # (Auto) 0.0 WBC Differential . Differential Comment . Sodium Potassium Chloride Carbon Dioxide Anion Gap BUN Creatinine Estimated GFR POC Glucose Random Glucose Calcium Prot Corrected Calcium Magnesium Total Bilirubin AST ALT Alkaline Phosphatase Total Protein Albumin Microbiology 02/18/18 20:45 Blood - Peripheral Aerobic Blood Culture - Final No growth in 5 days 02/18/18 20:45 Blood - Peripheral Anaerobic Blood Culture - Final No growth in 5 days 02/18/18 20:35 Blood - Peripheral Aerobic Blood Culture - Final No growth in 5 days 02/18/18 20:35 Blood - Peripheral Anaerobic Blood Culture - Final No growth in 5 days - Procedures Laparoscopic cholecystectomy Assessment and Plan (1) Acute gallstone pancreatitis Status: Acute Code(s): K85.10 - Biliary acute pancreatitis without necrosis or infection (2) Cholecystitis Status: Acute Code(s): K81.9 - Cholecystitis, unspecified (3) Cirrhosis Status: Acute Code(s): K74.60 - Unspecified cirrhosis of liver (4) Cirrhosis of liver Status: Acute Code(s): K74.60 - Unspecified cirrhosis of liver - Plan Continue diuretics. Doubt has [id number] deficiency but can draw blood tests. Rec complete abstinence from alcohol. Will have pt f/u in our office in about 2 weeks for management liver disease. Will sign off for now.
--- NOTE | 2018-02-24 09:46 | P.PN ---
Subjective Interval history: Follow-up gangrenous cholecystitis February 24, 2018-patient seen and examined, denies any abdominal pain. No nausea no vomiting with p.o. intake. High MARVIN drain output. LFTs trending down. Afebrile Physical Exam Vital signs: Vital Signs 02/23/18 12:00 02/23/18 16:00 02/23/18 20:00 Temperature 97.6 F 96.4 F L 97.1 F L Pulse Rate 78 67 73 Respiratory Rate 16 17 18 Blood Pressure 139/78 131/71 128/66 Pulse Oximetry 95 92 L 93 L 02/24/18 00:00 02/24/18 08:00 Temperature 98.4 F 98.5 F Pulse Rate 79 97 H Respiratory Rate 18 18 Blood Pressure 126/65 139/70 Pulse Oximetry 93 L 95 Intake & Output 02/23/18 02/24/18 02/24/18 18:59 06:59 18:59 Intake Total 1370 / 1370 420 / 420 100 / 100 Output Total 630 / 630 Balance 1370 / 1370 -210 / -210 100 / 100 Weight 71.7 kg Intake: IV 650 / 650 300 / 300 100 / 100 NS Inj 1,000 ML @ 70 mls/hr IV. 450 / 450 CONT .[id number] DOTTY Rx#: [id number] Azactam Inj 2 GM In NS Inj 100 100 / 100 200 / 200 ML @ 200 mls/hr IV.SIG Q8H DOTTY Rx#:[id number] Flagyl 500 MG Inj 100 ML @ 100 100 / 100 100 / 100 100 / 100 mls/hr IV.SIG Q8H DOTTY Rx#: [id number] Oral 720 / 720 120 / 120 Output: Wound Drainage 630 / 630 Right Abdomen 630 / 630 Other: # Voids 3 2 Date of Last Bowel Movement 02/20/18 # Bowel Movements 0 Narrative: GENERAL: NAD SKIN: Warm and dry. HEAD: Atraumatic. Normocephalic. EYES: Pupils equal and round. No scleral icterus. No injection or drainage. ENT: No nasal bleeding or discharge. Mucous membranes pink and moist. NECK: Trachea midline. No JVD. CARDIOVASCULAR: Regular rate and rhythm. RESPIRATORY: No accessory muscle use. Clear to auscultation. Breath sounds equal bilaterally. GASTROINTESTINAL: Abdomen soft, non-tender, nondistended. Hepatic and splenic margins not palpable.inc c/d/i. MARVIN drain with high output MUSCULOSKELETAL: Extremities without clubbing, cyanosis, or edema. No obvious deformities. NEUROLOGICAL: Awake and alert. No obvious cranial nerve deficits. Motor grossly within normal limits. Five out of 5 muscle strength in the arms and legs. Normal speech. PSYCHIATRIC: Appropriate mood and affect; insight and judgment normal. Results - Labs CBC & Chem 7: 02/24/18 05:15 02/24/18 05:15 Laboratory Results - last 24 hr 02/23/18 02/23/18 02/24/18 05:17 11:24 05:15 CBC w Diff WBC RBC Hgb Hct MCV MCH MCHC RDW Plt Count MPV Neut % (Auto) Lymph % (Auto) [place] % (Auto) Eos % (Auto) Baso % (Auto) Neut # (Auto) Lymph # (Auto) [place] # (Auto) Eos # (Auto) Baso # (Auto) WBC Differential Differential Comment Sodium 141 Potassium 3.8 Chloride 109 H Carbon Dioxide 22.1 Anion Gap 10 BUN 22 H Creatinine 0.65 Estimated GFR Greater than 89 POC Glucose 117 H Random Glucose 92 Calcium 7.3 L* Prot Corrected Calcium 8.8 8.8 Magnesium 2.1 Total Bilirubin 0.9 AST 86 H ALT 44 Alkaline Phosphatase 222 H Total Protein 4.5 L D 4.4 L Albumin 2.1 L 02/24/18 05:15 CBC w Diff Auto diff final WBC 11.9 H RBC 3.43 L Hgb 11.9 L Hct 35.3 L MCV 102.7 H MCH 34.7 H MCHC 33.8 RDW 13.0 Plt Count 168 MPV 7.9 Neut % (Auto) 70.8 H Lymph % (Auto) 18.3 [place] % (Auto) 7.7 Eos % (Auto) 2.9 Baso % (Auto) 0.3 Neut # (Auto) 8.5 H Lymph # (Auto) 2.2 [place] # (Auto) 0.9 Eos # (Auto) 0.3 Baso # (Auto) 0.0 WBC Differential . Differential Comment . Sodium Potassium Chloride Carbon Dioxide Anion Gap BUN Creatinine Estimated GFR POC Glucose Random Glucose Calcium Prot Corrected Calcium Magnesium Total Bilirubin AST ALT Alkaline Phosphatase Total Protein Albumin Microbiology 02/18/18 20:45 Blood - Peripheral Aerobic Blood Culture - Final No growth in 5 days 02/18/18 20:45 Blood - Peripheral Anaerobic Blood Culture - Final No growth in 5 days 02/18/18 20:35 Blood - Peripheral Aerobic Blood Culture - Final No growth in 5 days 02/18/18 20:35 Blood - Peripheral Anaerobic Blood Culture - Final No growth in 5 days - Procedures Laparoscopic cholecystectomy Assessment and Plan - Assessment (1) Sepsis Code(s): A41.9 - Sepsis, unspecified organism Status: Acute (2) Cholecystitis Code(s): K81.9 - Cholecystitis, unspecified Status: Acute - Plan 82-year-old man with: Gangrenous cholecystitis Status post lap cholecystectomy Management per general surgery, continue to monitor MARVIN drain output Currently on Azactam, Flagyl Continue to monitor LFTs however for repeat MRCP or ERCP. Appreciate input from GI who signed off 02/24/18 Cirrhosis intraoperatively Continue with Lasix and Aldactone Outpatient follow-up with GI Alcohol cessation strongly advised Hypertension Currently normotensive on Toprol-XL Severe sepsis: Resolved Gallstone pancreatitis: Resolved PT to treat and eval DVT prophylaxis with SCD and early ambulation. Subcu heparin will continue to hold secondary to significant serosanguineous MARVIN drainage (1) Sepsis Qualifiers: Sepsis type: sepsis due to unspecified organism Qualified Code(s): A41.9 - Sepsis, unspecified organism
--- NOTE | 2018-02-24 17:57 | P.PNGS ---
Subjective Interval history: Up to chair Reports his is doing well at home with his niece and nephew Physical Exam Vital signs: Vital Signs 02/23/18 20:00 02/24/18 00:00 02/24/18 08:00 Temperature 97.1 F L 98.4 F 98.5 F Pulse Rate 73 79 97 H Respiratory Rate 18 18 18 Blood Pressure 128/66 126/65 139/70 Pulse Oximetry 93 L 93 L 95 02/24/18 11:57 02/24/18 15:13 Temperature 98.9 F 98.1 F Pulse Rate 76 80 Respiratory Rate 18 18 Blood Pressure 124/66 128/69 Pulse Oximetry 95 94 L Intake & Output 02/23/18 02/24/18 02/24/18 18:59 06:59 18:59 Intake Total 1370 / 1370 420 / 420 300 / 300 Output Total 630 / 630 480 / 480 Balance 1370 / 1370 -210 / -210 -180 / -180 Weight 71.7 kg Intake: IV 650 / 650 300 / 300 300 / 300 NS Inj 1,000 ML @ 70 mls/hr IV. 450 / 450 CONT .[id number] DOTTY Rx#: [id number] Azactam Inj 2 GM In NS Inj 100 100 / 100 200 / 200 100 / 100 ML @ 200 mls/hr IV.SIG Q8H DOTTY Rx#:[id number] Flagyl 500 MG Inj 100 ML @ 100 100 / 100 100 / 100 200 / 200 mls/hr IV.SIG Q8H DOTTY Rx#: [id number] Oral 720 / 720 120 / 120 Output: Wound Drainage 630 / 630 480 / 480 # 1 Abdomen MARVIN Drain 480 / 480 Right Abdomen 630 / 630 Other: # Voids 3 2 Date of Last Bowel Movement 02/20/18 02/22/18 # Bowel Movements 0 Narrative: Alert and awake Abd: soft; minimally tender at incision sites MARVIN with serosanguineous drainage --- 480 cc for the day shift Results - Labs 02/27/18 06:00 02/27/18 06:00 Laboratory Results - last 24 hr 02/24/18 02/24/18 02/24/18 05:15 05:15 10:30 CBC w Diff Auto diff final WBC 11.9 H RBC 3.43 L Hgb 11.9 L Hct 35.3 L MCV 102.7 H MCH 34.7 H MCHC 33.8 RDW 13.0 Plt Count 168 MPV 7.9 Neut % (Auto) 70.8 H Lymph % (Auto) 18.3 [place] % (Auto) 7.7 Eos % (Auto) 2.9 Baso % (Auto) 0.3 Neut # (Auto) 8.5 H Lymph # (Auto) 2.2 [place] # (Auto) 0.9 Eos # (Auto) 0.3 Baso # (Auto) 0.0 WBC Differential . Differential Comment . Sodium 141 Potassium 3.8 Chloride 109 H Carbon Dioxide 22.1 Anion Gap 10 BUN 22 H Creatinine 0.65 Estimated GFR Greater than 89 Random Glucose 92 Calcium 7.3 L* Prot Corrected Calcium 8.8 Magnesium 2.1 Total Bilirubin 0.9 AST 86 H ALT 44 Alkaline Phosphatase 222 H Total Protein 4.4 L Albumin 2.1 L [id number] Cancelled - Imaging Imaging: ITS Impressions Abdomen X-Ray 02/18/18 16:09 CONCLUSION: Unremarkable bowel gas pattern. Abdomen/Pelvis CT 02/18/18 18:05 CONCLUSION: 1. Right upper quadrant acute inflammatory changes that appear to represent cholecystitis, duodenitis or a combination of the two. 2. There is small ascites. Nothing organized or loculated. 3. No bowel obstruction. 4. Florid diverticulosis of the sigmoid colon without evidence of diverticulitis. 5. 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 No aneurysm. Gallbladder Ultrasound 02/18/18 20:35 CONCLUSION: Abnormal gallbladder with wall thickening and pericholecystic fluid. Acute cholecystitis possible in the proper clinical setting. No stones are demonstrated. No evidence of biliary obstruction. Cholangiopancreatography MRI 02/19/18 00:00 CONCLUSION: 1. Diffuse dilatation of the common bile duct measuring 9 mm with possible filling defect in the distal common bile duct. ERCP would be helpful for further evaluation and possible treatment if clinically indicated. 2. Mildly thickened gallbladder wall with minimal pericholecystic fluid. No definite gallstone identified. 3. Minimal ascites. Assessment and Plan - Assessment (1) Abdominal pain Code(s): R10.9 - Unspecified abdominal pain Status: Acute Plan: 82 year old male with RUQ tenderness; elevated LFTs; elevated lipase -POD2 lap carly; gangrenous cholecystitis -Regular diet -Continue IV antibiotics -OOB as tolerated -Patient will go home with [facility] for MARVIN drain care; likely in the next 24-48 hours Although he appears improved, still has high MARVIN output Need to start diuretics Cannot leave drain in too long or he will suffer protein loss via fluid. Cannot remove yet due to infection at time of surgery. Discussed with patient. The exam, history, and the medical decision-making described in the above note were completed with the assistance of the mid-level provider. I reviewed and agree with the findings presented. I attest that I had a [id number] encounter with the patient on the same day, and personally performed and documented my assessment and findings in the medical record.
[2018-02-25] MEDS: Aztreonam Inj 2 GM in Sodium Chloride 0.9% Inj 100 ML IV.SIG SCH ×3 (04:26→21:00)
[2018-02-25 06:38] LABS: Baso % (Auto) 0.4 % (0.0-2.0); Eos # (Auto) 0.4 th/mm3 (0.0-0.4); Eos % (Auto) 3.4 % (0.0-4.0); Hematocrit 36.8 % (39.0-51.0); Hemoglobin 12.2 gm/dL (13.0-17.0); Lymph # (Auto) 2.1 th/mm3 (1.0-4.8); Lymph % (Auto) 18.7 % (9.0-44.0); Mean Corpuscular HGB Conc 33.2 % (32.0-36.0); Mean Corpuscular Hemoglobin 34.1 pg (27.0-34.0); Mean Corpuscular Volume 102.5 fL (80.0-100.0); Mean Platelet Volume 8.4 fL (7.0-11.0); Mono % (Auto) 9.1 % (0.0-8.0); Neut # (Auto) 7.8 th/mm3 (1.8-7.7); Neut % (Auto) 68.4 % (16.0-70.0); Platelet Count 181 th/mm3 (150-450); Red Blood Count 3.59 mil/mm3 (4.50-5.90); Red Cell Distribution Width 12.9 % (11.6-17.2); White Blood Count 11.3 th/mm3 (4.0-11.0)
[2018-02-25 07:07] LABS: Chloride 107 meq/L (98-107); Potassium 3.9 meq/L (3.5-5.1); Sodium 140 meq/L (136-145)
[2018-02-25 07:11] LABS: Albumin 2.1 g/dL (3.4-5.0); Anion Gap 10 meq/L (5-15); Calcium 7.7 mg/dL (8.5-10.1); Carbon Dioxide 23.5 meq/L (21.0-32.0); Glucose,Random 105 mg/dL (74-106)
[2018-02-25 07:12] LABS: Blood Urea Nitrogen 20 mg/dL (7-18)
[2018-02-25 07:14] LABS: Alanine Aminotransferase 45 U/L (12-78)
[2018-02-25 07:15] LABS: Aspartate Aminotransferase 70 U/L (15-37); Glomerular Filtration Rate Greater Than 89 mL/min (>89)
[2018-02-25 07:16] LABS: Total Protein 4.6 g/dL (6.4-8.2)
[2018-02-25 07:17] LABS: Alkaline Phosphatase 228 U/L (45-117)
--- NOTE | 2018-02-25 08:25 | P.PNGS ---
Subjective Interval history: Eating breakfast No issues overnight Physical Exam Vital signs: Vital Signs 02/24/18 11:57 02/24/18 15:13 02/24/18 22:00 Temperature 98.9 F 98.1 F 98.4 F Pulse Rate 76 80 101 H Respiratory Rate 18 18 18 Blood Pressure 124/66 128/69 147/93 H Pulse Oximetry 95 94 L 94 L 02/25/18 00:00 Temperature 98.4 F Pulse Rate 89 Respiratory Rate 20 Blood Pressure 128/71 Pulse Oximetry 93 L Intake & Output 02/24/18 02/25/18 02/25/18 18:59 06:59 18:59 Intake Total 300 / 300 640 / 640 Output Total 480 / 480 385 / 385 Balance -180 / -180 255 / 255 Weight 71.8 kg Intake: IV 300 / 300 400 / 400 Azactam Inj 2 GM In NS Inj 100 100 / 100 200 / 200 ML @ 200 mls/hr IV.SIG Q8H DOTTY Rx#:[id number] Flagyl 500 MG Inj 100 ML @ 100 200 / 200 200 / 200 mls/hr IV.SIG Q8H DOTTY Rx#: [id number] Oral 240 / 240 Output: Wound Drainage 480 / 480 385 / 385 # 1 Abdomen MARVIN Drain 480 / 480 385 / 385 Other: # Voids 3 # Urine Diapers 1 Date of Last Bowel Movement 02/22/18 02/22/18 02/22/18 Narrative: Alert and awake Abd: soft; minimally tender at laparoscopic sites; MARVIN with pink tinged fluid Results - Labs 02/27/18 06:00 02/27/18 06:00 Laboratory Results - last 24 hr 02/24/18 02/25/18 02/25/18 10:30 05:20 05:20 CBC w Diff Auto diff final WBC 11.3 H RBC 3.59 L Hgb 12.2 L Hct 36.8 L MCV 102.5 H MCH 34.1 H MCHC 33.2 RDW 12.9 Plt Count 181 MPV 8.4 Neut % (Auto) 68.4 Lymph % (Auto) 18.7 [place] % (Auto) 9.1 H Eos % (Auto) 3.4 Baso % (Auto) 0.4 Neut # (Auto) 7.8 H Lymph # (Auto) 2.1 [place] # (Auto) 1.0 H Eos # (Auto) 0.4 Baso # (Auto) 0.0 WBC Differential . Differential Comment . Sodium 140 Potassium 3.9 Chloride 107 Carbon Dioxide 23.5 Anion Gap 10 BUN 20 H Creatinine 0.60 Estimated GFR Greater than 89 Random Glucose 105 Calcium 7.7 L Total Bilirubin 0.9 AST 70 H ALT 45 Alkaline Phosphatase 228 H Total Protein 4.6 L Albumin 2.1 L Itraw-1-Igwqdtnrkiv Cancelled - Imaging Imaging: ITS Impressions Abdomen X-Ray 02/18/18 16:09 CONCLUSION: Unremarkable bowel gas pattern. Abdomen/Pelvis CT 02/18/18 18:05 CONCLUSION: 1. Right upper quadrant acute inflammatory changes that appear to represent cholecystitis, duodenitis or a combination of the two. 2. There is small ascites. Nothing organized or loculated. 3. No bowel obstruction. 4. Florid diverticulosis of the sigmoid colon without evidence of diverticulitis. 5. 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 No aneurysm. Gallbladder Ultrasound 02/18/18 20:35 CONCLUSION: Abnormal gallbladder with wall thickening and pericholecystic fluid. Acute cholecystitis possible in the proper clinical setting. No stones are demonstrated. No evidence of biliary obstruction. Cholangiopancreatography MRI 02/19/18 00:00 CONCLUSION: 1. Diffuse dilatation of the common bile duct measuring 9 mm with possible filling defect in the distal common bile duct. ERCP would be helpful for further evaluation and possible treatment if clinically indicated. 2. Mildly thickened gallbladder wall with minimal pericholecystic fluid. No definite gallstone identified. 3. Minimal ascites. Assessment and Plan - Assessment (1) Abdominal pain Code(s): R10.9 - Unspecified abdominal pain Status: Acute Plan: 82 year old male with RUQ tenderness; elevated LFTs; elevated lipase -POD3 lap carly; gangrenous cholecystitis -Regular diet -Continue IV antibiotics -Adjusted diuretics -OOB as tolerated -Patient will go home with [facility] for MARVIN drain care; likely in the next 24-48 hours -Gave the RN my number for family to call Still with relatively high MARVIN output Tolerating diet; steri-strips with no new drainage Increase diuretics and watch labs Will likely remove MARVIN in office, but would like ascites better controlled. The exam, history, and the medical decision-making described in the above note were completed with the assistance of the mid-level provider. I reviewed and agree with the findings presented. I attest that I had a [id number] encounter with the patient on the same day, and personally performed and documented my assessment and findings in the medical record.
[2018-02-25] MEDS: Furosemide 20 MG Tablet PO SCH ×2 (08:31→17:46)
[2018-02-25] MEDS: Famotidine 20 MG Tablet PO SCH ×2 (08:32→21:18)
[2018-02-25] MEDS: Senna/Docusate Sodium 8.6/50 MG Tablet PO SCH ×2 (08:32→21:18)
[2018-02-25] MEDS: Metoprolol Tartrate 50 MG Tablet PO SCH (08:32)
--- NOTE | 2018-02-25 09:57 | P.PN ---
Subjective Interval history: Follow-up gangrenous cholecystitis February 24, 2018-patient seen and examined, denies any abdominal pain. No nausea no vomiting with p.o. intake. High MARVIN drain output. LFTs trending down. Afebrile February 25, 2018-patient seen and examined, denies any complaint this morning.Continues to have High MARVIN drain output. Case discussed with LIANET Omer for General Surgery Physical Exam Vital signs: Vital Signs 02/24/18 11:57 02/24/18 15:13 02/24/18 22:00 Temperature 98.9 F 98.1 F 98.4 F Pulse Rate 76 80 101 H Respiratory Rate 18 Blood Pressure 124/66 128/69 147/93 H Pulse Oximetry 95 94 L 94 L 02/25/18 00:00 02/25/18 08:00 Temperature 98.4 F 98.2 F Pulse Rate 89 98 H Respiratory Rate 20 19 Blood Pressure 128/71 135/65 Pulse Oximetry 93 L 92 L Intake & Output 02/24/18 02/25/18 02/25/18 18:59 06:59 18:59 Intake Total 300 / 300 640 / 640 Output Total 480 / 480 385 / 385 Balance -180 / -180 255 / 255 Weight 71.8 kg Intake: IV 300 / 300 400 / 400 Azactam Inj 2 GM In NS Inj 100 100 / 100 200 / 200 ML @ 200 mls/hr IV.SIG Q8H DOTTY Rx#:[id number] Flagyl 500 MG Inj 100 ML @ 100 200 / 200 200 / 200 mls/hr IV.SIG Q8H DOTTY Rx#: [id number] Oral 240 / 240 Output: Wound Drainage 480 / 480 385 / 385 # 1 Abdomen MARVIN Drain 480 / 480 385 / 385 Other: # Voids 3 # Urine Diapers 1 Date of Last Bowel Movement 02/22/18 02/22/18 02/22/18 Narrative: GENERAL: NAD SKIN: Warm and dry. HEAD: Atraumatic. Normocephalic. EYES: Pupils equal and round. No scleral icterus. No injection or drainage. ENT: No nasal bleeding or discharge. Mucous membranes pink and moist. NECK: Trachea midline. No JVD. CARDIOVASCULAR: Regular rate and rhythm. RESPIRATORY: No accessory muscle use. Clear to auscultation. Breath sounds equal bilaterally. GASTROINTESTINAL: Abdomen soft, non-tender, nondistended. Hepatic and splenic margins not palpable. MARVIN drain in place with tinged fluid MUSCULOSKELETAL: Extremities without clubbing, cyanosis, or edema. No obvious deformities. NEUROLOGICAL: Awake and alert. No obvious cranial nerve deficits. Motor grossly within normal limits. Five out of 5 muscle strength in the arms and legs. Normal speech. PSYCHIATRIC: Appropriate mood and affect; insight and judgment normal. Results - Labs CBC & Chem 7: 02/25/18 05:20 02/25/18 05:20 Laboratory Results - last 24 hr 02/24/18 02/25/18 02/25/18 10:30 05:20 05:20 CBC w Diff Auto diff final WBC 11.3 H RBC 3.59 L Hgb 12.2 L Hct 36.8 L MCV 102.5 H MCH 34.1 H MCHC 33.2 RDW 12.9 Plt Count 181 MPV 8.4 Neut % (Auto) 68.4 Lymph % (Auto) 18.7 [place] % (Auto) 9.1 H Eos % (Auto) 3.4 Baso % (Auto) 0.4 Neut # (Auto) 7.8 H Lymph # (Auto) 2.1 [place] # (Auto) 1.0 H Eos # (Auto) 0.4 Baso # (Auto) 0.0 WBC Differential . Differential Comment . Sodium 140 Potassium 3.9 Chloride 107 Carbon Dioxide 23.5 Anion Gap 10 BUN 20 H Creatinine 0.60 Estimated GFR Greater than 89 Random Glucose 105 Calcium 7.7 L Total Bilirubin 0.9 AST 70 H ALT 45 Alkaline Phosphatase 228 H Total Protein 4.6 L Albumin 2.1 L Odfug-2-Leeotvbabeq Cancelled - Procedures Laparoscopic cholecystectomy Assessment and Plan - Assessment (1) Sepsis Code(s): A41.9 - Sepsis, unspecified organism Status: Acute (2) Cholecystitis Code(s): K81.9 - Cholecystitis, unspecified Status: Acute - Plan 82-year-old man with: Gangrenous cholecystitis Status post lap cholecystectomy Management per general surgery, continue to monitor MARVIN drain output Currently on Azactam, Flagyl Continue to monitor LFTs however for repeat MRCP or ERCP. Appreciate input from GI who signed off 02/24/18 Still not ready for discharge Cirrhosis intraoperatively Continue with Lasix and Aldactone; adjust dose accordingly Outpatient follow-up with GI Alcohol cessation strongly advised Hypertension Currently normotensive on Toprol-XL Severe sepsis: Resolved Gallstone pancreatitis: Resolved PT to treat and eval DVT prophylaxis with SCD and early ambulation. Subcu heparin will continue to hold secondary to significant serosanguineous MARVIN drainage (1) Sepsis Qualifiers: Sepsis type: sepsis due to unspecified organism Qualified Code(s): A41.9 - Sepsis, unspecified organism
[2018-02-25] MEDS ORDERED: Spironolactone 25 MG Tablet PO SCH (14:00)
[2018-02-25] MEDS: Spironolactone 25 MG Tablet PO SCH (17:21)
[2018-02-26] MEDS: Aztreonam Inj 2 GM in Sodium Chloride 0.9% Inj 100 ML IV.SIG SCH ×3 (04:15→21:30)
[2018-02-26 06:51] LABS: Baso # (Auto) 0.1 th/mm3 (0.0-0.2); Baso % (Auto) 0.7 % (0.0-2.0); Eos # (Auto) 0.4 th/mm3 (0.0-0.4); Eos % (Auto) 3.5 % (0.0-4.0); Hematocrit 36.8 % (39.0-51.0); Hemoglobin 12.3 gm/dL (13.0-17.0); Lymph # (Auto) 2.4 th/mm3 (1.0-4.8); Lymph % (Auto) 19.6 % (9.0-44.0); Mean Corpuscular HGB Conc 33.4 % (32.0-36.0); Mean Corpuscular Hemoglobin 34.3 pg (27.0-34.0); Mean Corpuscular Volume 102.8 fL (80.0-100.0); Mean Platelet Volume 8.3 fL (7.0-11.0); Mono % (Auto) 8.7 % (0.0-8.0); Neut # (Auto) 8.1 th/mm3 (1.8-7.7); Neut % (Auto) 67.5 % (16.0-70.0); Platelet Count 196 th/mm3 (150-450); Red Blood Count 3.58 mil/mm3 (4.50-5.90); Red Cell Distribution Width 13.1 % (11.6-17.2)
[2018-02-26 07:01] LABS: Chloride 104 meq/L (98-107); Potassium 3.8 meq/L (3.5-5.1); Sodium 137 meq/L (136-145)
[2018-02-26 07:04] LABS: Anion Gap 9 meq/L (5-15); Calcium 7.5 mg/dL (8.5-10.1); Carbon Dioxide 24.3 meq/L (21.0-32.0); Glucose,Random 112 mg/dL (74-106)
[2018-02-26 07:05] LABS: Blood Urea Nitrogen 21 mg/dL (7-18)
[2018-02-26 07:07] LABS: Alanine Aminotransferase 39 U/L (12-78)
[2018-02-26 07:08] LABS: Aspartate Aminotransferase 58 U/L (15-37); Glomerular Filtration Rate Greater Than 89 mL/min (>89)
[2018-02-26 07:09] LABS: Total Protein 4.6 g/dL (6.4-8.2)
[2018-02-26 07:10] LABS: Alkaline Phosphatase 235 U/L (45-117)
[2018-02-26] MEDS: Famotidine 20 MG Tablet PO SCH ×2 (08:58→21:55)
[2018-02-26] MEDS: Metoprolol Tartrate 50 MG Tablet PO SCH (08:58)
[2018-02-26] MEDS: Spironolactone 25 MG Tablet PO SCH ×3 (08:59→18:08)
[2018-02-26] MEDS: Senna/Docusate Sodium 8.6/50 MG Tablet PO SCH ×2 (08:59→21:55)
[2018-02-26] MEDS: Furosemide 20 MG Tablet PO SCH ×2 (09:05→18:09)
--- NOTE | 2018-02-26 09:06 | P.PN ---
Subjective Interval history: Feels better; eating breakfast Physical Exam Vital signs: Vital Signs 02/25/18 11:56 02/25/18 16:00 02/25/18 19:55 Temperature 98.6 F 96.2 F L 99.8 F H Pulse Rate 73 87 100 H Respiratory Rate 17 17 18 Blood Pressure 101/59 L 123/60 111/64 Pulse Oximetry 96 95 93 L 02/26/18 00:00 02/26/18 08:00 Temperature 96.8 F L 97.0 F L Pulse Rate 94 H 109 H Respiratory Rate 18 18 Blood Pressure 103/63 125/66 Pulse Oximetry 92 L 95 Intake & Output 02/25/18 02/26/18 02/26/18 18:59 06:59 18:59 Intake Total 1160 / 1160 400 / 400 Output Total 640 / 640 510 / 510 Balance 520 / 520 -110 / -110 Weight 71.4 kg Intake: IV 200 / 200 400 / 400 Azactam Inj 2 GM In NS Inj 100 100 / 100 200 / 200 ML @ 200 mls/hr IV.SIG Q8H DOTTY Rx#:[id number] Flagyl 500 MG Inj 100 ML @ 100 100 / 100 200 / 200 mls/hr IV.SIG Q8H DOTTY Rx#: [id number] Oral 960 / 960 Output: Wound Drainage 640 / 640 510 / 510 # 1 Abdomen MARVIN Drain 640 / 640 510 / 510 Other: # Incontinent Voids 3 4 Date of Last Bowel Movement 02/22/18 # Bowel Movements 2 - Routine Respiratory Exam Present: decreased breath sounds - Routine Abdominal Exam Present: soft, drain (Serosanguinous, milky, large volume still) Results - Labs CBC & Chem 7: 02/26/18 05:00 02/26/18 05:00 Laboratory Results - last 24 hr 02/26/18 02/26/18 05:00 05:00 CBC w Diff Auto diff final WBC 12.0 H RBC 3.58 L Hgb 12.3 L Hct 36.8 L MCV 102.8 H MCH 34.3 H MCHC 33.4 RDW 13.1 Plt Count 196 MPV 8.3 Neut % (Auto) 67.5 Lymph % (Auto) 19.6 [place] % (Auto) 8.7 H Eos % (Auto) 3.5 Baso % (Auto) 0.7 Neut # (Auto) 8.1 H Lymph # (Auto) 2.4 [place] # (Auto) 1.0 H Eos # (Auto) 0.4 Baso # (Auto) 0.1 WBC Differential . Differential Comment . Sodium 137 Potassium 3.8 Chloride 104 Carbon Dioxide 24.3 Anion Gap 9 BUN 21 H Creatinine 0.65 Estimated GFR Greater than 89 Random Glucose 112 H Calcium 7.5 L Total Bilirubin 0.6 AST 58 H ALT 39 Alkaline Phosphatase 235 H Total Protein 4.6 L Albumin 2.0 L Microbiology 02/25/18 17:25 Fluid - Boubacar Go Drain Gram Stain - Final - Procedures Laparoscopic cholecystectomy Assessment and Plan - Assessment (1) Abdominal pain Code(s): R10.9 - Unspecified abdominal pain Status: Acute Plan: POD #4 lap carly; enzymes trending down and bili normal. Path pending MARVIN output still significant; mostly due to ascites and chylous after he eats. Needs to go to rehab with drain in; need to monitor BUN/Cr and aggressively treat his ascites from his cirrhosis. As he had gangrenous cholecystitis, needs to stay on oral antibiotics and MARVIN needs to stay in for now to prevent peritonitis in the ascites. May consider going to rehab Thursday, as labs need to be monitored for next few days.
[2018-02-26] MEDS ORDERED: Furosemide 20 MG Tablet PO SCH (10:00)
--- NOTE | 2018-02-26 10:46 | P.PN ---
Subjective Interval history: Follow-up gangrenous cholecystitis February 24, 2018-patient seen and examined, denies any abdominal pain. No nausea no vomiting with p.o. intake. High MARVIN drain output. LFTs trending down. Afebrile February 25, 2018-patient seen and examined, denies any complaint this morning.Continues to have High MARVIN drain output. Case discussed with LIANET Omer for General Surgery February 26, 2018-patient seen and examined, tolerated p.o. this morning, no acute event overnight. Still with high MARVIN drain output. Afebrile. Physical Exam Vital signs: Vital Signs 02/25/18 11:56 02/25/18 16:00 02/25/18 19:55 Temperature 98.6 F 96.2 F L 99.8 F H Pulse Rate 73 87 100 H Respiratory Rate 17 17 18 Blood Pressure 101/59 L 123/60 111/64 Pulse Oximetry 96 95 93 L 02/26/18 00:00 02/26/18 08:00 Temperature 96.8 F L 97.0 F L Pulse Rate 94 H 109 H Respiratory Rate 18 18 Blood Pressure 103/63 125/66 Pulse Oximetry 92 L 95 Intake & Output 02/25/18 02/26/18 02/26/18 18:59 06:59 18:59 Intake Total 1160 / 1160 400 / 400 Output Total 640 / 640 510 / 510 Balance 520 / 520 -110 / -110 Weight 71.4 kg Intake: IV 200 / 200 400 / 400 Azactam Inj 2 GM In NS Inj 100 100 / 100 200 / 200 ML @ 200 mls/hr IV.SIG Q8H DOTTY Rx#:[id number] Flagyl 500 MG Inj 100 ML @ 100 100 / 100 200 / 200 mls/hr IV.SIG Q8H DOTTY Rx#: [id number] Oral 960 / 960 Output: Wound Drainage 640 / 640 510 / 510 # 1 Abdomen MARVIN Drain 640 / 640 510 / 510 Other: # Incontinent Voids 3 4 Date of Last Bowel Movement 02/22/18 # Bowel Movements 2 Narrative: GENERAL: NAD SKIN: Warm and dry. HEAD: Atraumatic. Normocephalic. EYES: Pupils equal and round. No scleral icterus. No injection or drainage. ENT: No nasal bleeding or discharge. Mucous membranes pink and moist. NECK: Trachea midline. No JVD. CARDIOVASCULAR: Regular rate and rhythm. RESPIRATORY: No accessory muscle use. Clear to auscultation. Breath sounds equal bilaterally. GASTROINTESTINAL: Abdomen soft, non-tender, nondistended. Hepatic and splenic margins not palpable. MARVIN drain in place with high output fluid MUSCULOSKELETAL: Extremities without clubbing, cyanosis, or edema. No obvious deformities. NEUROLOGICAL: Awake and alert. No obvious cranial nerve deficits. Motor grossly within normal limits. Five out of 5 muscle strength in the arms and legs. Normal speech. PSYCHIATRIC: Appropriate mood and affect; insight and judgment normal. Results - Labs CBC & Chem 7: 02/26/18 05:00 02/26/18 05:00 Laboratory Results - last 24 hr 02/26/18 02/26/18 05:00 05:00 CBC w Diff Auto diff final WBC 12.0 H RBC 3.58 L Hgb 12.3 L Hct 36.8 L MCV 102.8 H MCH 34.3 H MCHC 33.4 RDW 13.1 Plt Count 196 MPV 8.3 Neut % (Auto) 67.5 Lymph % (Auto) 19.6 [place] % (Auto) 8.7 H Eos % (Auto) 3.5 Baso % (Auto) 0.7 Neut # (Auto) 8.1 H Lymph # (Auto) 2.4 [place] # (Auto) 1.0 H Eos # (Auto) 0.4 Baso # (Auto) 0.1 WBC Differential . Differential Comment . Sodium 137 Potassium 3.8 Chloride 104 Carbon Dioxide 24.3 Anion Gap 9 BUN 21 H Creatinine 0.65 Estimated GFR Greater than 89 Random Glucose 112 H Calcium 7.5 L Total Bilirubin 0.6 AST 58 H ALT 39 Alkaline Phosphatase 235 H Total Protein 4.6 L Albumin 2.0 L Microbiology 02/25/18 17:25 Fluid - Boubacar Go Drain Gram Stain - Final - Procedures Laparoscopic cholecystectomy Assessment and Plan - Assessment (1) Sepsis Code(s): A41.9 - Sepsis, unspecified organism Status: Acute (2) Cholecystitis Code(s): K81.9 - Cholecystitis, unspecified Status: Acute - Plan 82-year-old man with: Gangrenous cholecystitis Status post lap cholecystectomy Management per general surgery, continue to monitor MARVIN drain output Currently on Azactam, Flagyl Continue to monitor LFTs however for repeat MRCP or ERCP. Appreciate input from GI who signed off 10/10/18 Still not ready for discharge Cirrhosis/ascites intraoperatively Continue with Lasix and Aldactone; adjust dose accordingly Outpatient follow-up with GI Alcohol cessation strongly advised Hypertension Currently normotensive on Toprol-XL Severe sepsis: Resolved Gallstone pancreatitis: Resolved PT to treat and eval DVT prophylaxis with SCD and early ambulation. Discharge Planning: Discharge likely next week early Thursday. (1) Sepsis Qualifiers: Sepsis type: sepsis due to unspecified organism Qualified Code(s): A41.9 - Sepsis, unspecified organism
[2018-02-27] MEDS: Aztreonam Inj 2 GM in Sodium Chloride 0.9% Inj 100 ML IV.SIG SCH ×3 (03:34→20:25)
[2018-02-27 07:00] LABS: Baso # (Auto) 0.1 th/mm3 (0.0-0.2); Baso % (Auto) 0.9 % (0.0-2.0); Eos # (Auto) 0.4 th/mm3 (0.0-0.4); Eos % (Auto) 3.8 % (0.0-4.0); Hematocrit 37.3 % (39.0-51.0); Hemoglobin 12.6 gm/dL (13.0-17.0); Lymph # (Auto) 1.9 th/mm3 (1.0-4.8); Lymph % (Auto) 17.2 % (9.0-44.0); Mean Corpuscular HGB Conc 33.8 % (32.0-36.0); Mean Corpuscular Hemoglobin 34.7 pg (27.0-34.0); Mean Corpuscular Volume 102.8 fL (80.0-100.0); Mean Platelet Volume 8.4 fL (7.0-11.0); Mono # (Auto) 1.1 th/mm3 (0.0-0.9); Mono % (Auto) 9.9 % (0.0-8.0); Neut # (Auto) 7.5 th/mm3 (1.8-7.7); Neut % (Auto) 68.2 % (16.0-70.0); Platelet Count 208 th/mm3 (150-450); Red Blood Count 3.63 mil/mm3 (4.50-5.90); Red Cell Distribution Width 12.9 % (11.6-17.2)
[2018-02-27 07:20] LABS: Chloride 103 meq/L (98-107); Potassium 3.9 meq/L (3.5-5.1); Sodium 137 meq/L (136-145)
[2018-02-27 07:25] LABS: Anion Gap 9 meq/L (5-15); Blood Urea Nitrogen 19 mg/dL (7-18); Calcium 7.7 mg/dL (8.5-10.1); Carbon Dioxide 25.5 meq/L (21.0-32.0); Glucose,Random 103 mg/dL (74-106)
[2018-02-27 07:28] LABS: Aspartate Aminotransferase 52 U/L (15-37); Glomerular Filtration Rate Greater Than 89 mL/min (>89)
[2018-02-27 07:30] LABS: Total Protein 4.6 g/dL (6.4-8.2)
[2018-02-27 07:31] LABS: Alanine Aminotransferase 37 U/L (12-78); Alkaline Phosphatase 230 U/L (45-117)
[2018-02-27] MEDS: Famotidine 20 MG Tablet PO SCH ×2 (08:28→20:32)
[2018-02-27] MEDS: Metoprolol Tartrate 50 MG Tablet PO SCH (08:28)
[2018-02-27] MEDS: Spironolactone 25 MG Tablet PO SCH ×3 (08:28→17:07)
[2018-02-27] MEDS: Senna/Docusate Sodium 8.6/50 MG Tablet PO SCH ×2 (08:29→20:32)
[2018-02-27] MEDS: Furosemide 20 MG Tablet PO SCH ×2 (08:33→17:10)
--- NOTE | 2018-02-27 10:23 | P.PN ---
Subjective Interval history: Follow-up gangrenous cholecystitis February 24, 2018-patient seen and examined, denies any abdominal pain. No nausea no vomiting with p.o. intake. High MARVIN drain output. LFTs trending down. Afebrile February 25, 2018-patient seen and examined, denies any complaint this morning.Continues to have High MARVIN drain output. Case discussed with LIANET Omer for General Surgery February 26, 2018-patient seen and examined, tolerated p.o. this morning, no acute event overnight. Still with high MARVIN drain output. Afebrile. February 27, 2018-patient seen and examined, stable, afebrile, no complaint of abdominal or chest pain. Physical Exam Vital signs: Vital Signs 02/26/18 12:00 02/26/18 15:47 02/26/18 20:00 Temperature 96.2 F L 99.6 F 99.1 F Pulse Rate 83 84 89 Respiratory Rate 18 18 18 Blood Pressure 148/67 H 106/67 111/69 Pulse Oximetry 95 95 95 02/27/18 00:00 02/27/18 08:00 Temperature 96.4 F L 96.5 F L Pulse Rate 102 H 100 H Respiratory Rate 18 16 Blood Pressure 121/73 113/67 Pulse Oximetry 93 L 93 L Intake & Output 02/26/18 02/27/18 02/27/18 18:59 06:59 18:59 Intake Total 1040 / 1040 520 / 520 Output Total 495 / 495 Balance 545 / 545 520 / 520 Weight 71.3 kg Intake: IV 200 / 200 400 / 400 Azactam Inj 2 GM In NS Inj 100 100 / 100 200 / 200 ML @ 200 mls/hr IV.SIG Q8H DOTTY Rx#:[id number] Flagyl 500 MG Inj 100 ML @ 100 100 / 100 200 / 200 mls/hr IV.SIG Q8H DOTTY Rx#: [id number] Oral 840 / 840 120 / 120 Output: Wound Drainage 495 / 495 Right Abdomen 495 / 495 Other: # Voids 3 # Urine Diapers 4 # Bowel Movements 4 Narrative: GENERAL: NAD SKIN: Warm and dry. HEAD: Atraumatic. Normocephalic. EYES: Pupils equal and round. No scleral icterus. No injection or drainage. ENT: No nasal bleeding or discharge. Mucous membranes pink and moist. NECK: Trachea midline. No JVD. CARDIOVASCULAR: Regular rate and rhythm. RESPIRATORY: No accessory muscle use. Clear to auscultation. Breath sounds equal bilaterally. GASTROINTESTINAL: Abdomen soft, non-tender, nondistended. Hepatic and splenic margins not palpable. MARVIN drain in place with high output fluid MUSCULOSKELETAL: Extremities without clubbing, cyanosis, or edema. No obvious deformities. NEUROLOGICAL: Awake and alert. No obvious cranial nerve deficits. Motor grossly within normal limits. Five out of 5 muscle strength in the arms and legs. Normal speech. PSYCHIATRIC: Appropriate mood and affect; insight and judgment normal. Results - Labs CBC & Chem 7: 02/27/18 06:00 02/27/18 06:00 Laboratory Results - last 24 hr 02/27/18 02/27/18 06:00 06:00 CBC w Diff Auto diff final WBC 11.0 RBC 3.63 L Hgb 12.6 L Hct 37.3 L MCV 102.8 H MCH 34.7 H MCHC 33.8 RDW 12.9 Plt Count 208 MPV 8.4 Neut % (Auto) 68.2 Lymph % (Auto) 17.2 [place] % (Auto) 9.9 H Eos % (Auto) 3.8 Baso % (Auto) 0.9 Neut # (Auto) 7.5 Lymph # (Auto) 1.9 [place] # (Auto) 1.1 H Eos # (Auto) 0.4 Baso # (Auto) 0.1 WBC Differential . Differential Comment . Sodium 137 Potassium 3.9 Chloride 103 Carbon Dioxide 25.5 Anion Gap 9 BUN 19 H Creatinine 0.67 Estimated GFR Greater than 89 Random Glucose 103 Calcium 7.7 L Total Bilirubin 0.8 AST 52 H ALT 37 Alkaline Phosphatase 230 H Total Protein 4.6 L Albumin 2.0 L Microbiology 02/25/18 17:25 Fluid - Boubacar Go Drain Gram Stain - Final 02/25/18 17:25 Fluid - Boubacar Go Drain Body Fluid Culture - Preliminary No growth in 48 hours - Procedures Laparoscopic cholecystectomy Assessment and Plan - Assessment (1) Sepsis Code(s): A41.9 - Sepsis, unspecified organism Status: Acute (2) Cholecystitis Code(s): K81.9 - Cholecystitis, unspecified Status: Acute - Plan 82-year-old man with: Gangrenous cholecystitis Status post lap cholecystectomy Management per general surgery, continue to monitor MARVIN drain output Currently on Azactam, Flagyl Continue to monitor LFTs however for repeat MRCP or ERCP. Appreciate input from GI who signed off 02/24/18 Still not ready for discharge Cirrhosis/ascites intraoperatively Continue with Lasix and Aldactone; monitor output of MARVIN drain Outpatient follow-up with GI Alcohol cessation strongly advised Hypertension Currently normotensive on Toprol-XL Severe sepsis: Resolved Gallstone pancreatitis: Resolved PT to treat and eval DVT prophylaxis with SCD and early ambulation. Discharge Planning: Discharge likely next week early Thursday. (1) Sepsis Qualifiers: Sepsis type: sepsis due to unspecified organism Qualified Code(s): A41.9 - Sepsis, unspecified organism
[2018-02-28] MEDS: Aztreonam Inj 2 GM in Sodium Chloride 0.9% Inj 100 ML IV.SIG SCH ×3 (03:02→20:28)
[2018-02-28] MEDS: Furosemide 20 MG Tablet PO SCH ×2 (08:25→17:14)
[2018-02-28] MEDS: Spironolactone 25 MG Tablet PO SCH ×3 (08:25→17:14)
[2018-02-28] MEDS: Senna/Docusate Sodium 8.6/50 MG Tablet PO SCH ×2 (08:25→20:29)
[2018-02-28] MEDS: Metoprolol Tartrate 50 MG Tablet PO SCH (08:26)
[2018-02-28] MEDS: Famotidine 20 MG Tablet PO SCH ×2 (08:26→20:29)
--- NOTE | 2018-02-28 09:59 | P.PN ---
Subjective Interval history: Follow-up gangrenous cholecystitis February 24, 2018-patient seen and examined, denies any abdominal pain. No nausea no vomiting with p.o. intake. High MARVIN drain output. LFTs trending down. Afebrile February 25, 2018-patient seen and examined, denies any complaint this morning.Continues to have High MARVIN drain output. Case discussed with LIANET Omer for General Surgery February 26, 2018-patient seen and examined, tolerated p.o. this morning, no acute event overnight. Still with high MARVIN drain output. Afebrile. February 27, 2018-patient seen and examined, stable, afebrile, no complaint of abdominal or chest pain. February 28, 2018-patient seen and examined, MARVIN drain output decreasing. Patient stable. No acute event overnight. Afebrile. Physical Exam Physical Exam Vital signs: Vital Signs 02/27/18 12:00 02/27/18 16:00 02/27/18 20:00 Temperature 96.8 F L 97.2 F L 98.6 F Pulse Rate 76 67 91 H Respiratory Rate 18 Blood Pressure 109/62 119/66 101/55 L Pulse Oximetry 94 L 97 93 L 02/28/18 00:00 02/28/18 08:00 Temperature 98.5 F 98.4 F Pulse Rate 99 H 101 H Respiratory Rate 18 22 Blood Pressure 111/63 114/68 Pulse Oximetry 93 L 95 Intake & Output 02/27/18 02/28/18 02/28/18 18:59 06:59 18:59 Intake Total 440 / 440 640 / 640 240 / 240 Output Total 265 / 265 190 / 190 200 / 200 Balance 175 / 175 450 / 450 40 / 40 Weight 71.3 kg Intake: IV 200 / 200 400 / 400 Azactam Inj 2 GM In NS Inj 100 100 / 100 200 / 200 ML @ 200 mls/hr IV.SIG Q8H DOTTY Rx#:[id number] Flagyl 500 MG Inj 100 ML @ 100 100 / 100 200 / 200 mls/hr IV.SIG Q8H DOTTY Rx#: [id number] Oral 240 / 240 240 / 240 240 / 240 Output: Urine 200 / 200 Wound Drainage 265 / 265 190 / 190 # 1 Abdomen MARVIN Drain 190 / 190 Right Abdomen 265 / 265 Other: # Voids 3 # Bowel Movements 1 Narrative: GENERAL: NAD SKIN: Warm and dry. HEAD: Atraumatic. Normocephalic. EYES: Pupils equal and round. No scleral icterus. No injection or drainage. ENT: No nasal bleeding or discharge. Mucous membranes pink and moist. NECK: Trachea midline. No JVD. CARDIOVASCULAR: Regular rate and rhythm. RESPIRATORY: No accessory muscle use. Clear to auscultation. Breath sounds equal bilaterally. GASTROINTESTINAL: Abdomen soft, non-tender, nondistended. Hepatic and splenic margins not palpable. MARVIN drain in place with low output fluid MUSCULOSKELETAL: Extremities without clubbing, cyanosis, or edema. No obvious deformities. NEUROLOGICAL: Awake and alert. No obvious cranial nerve deficits. Motor grossly within normal limits. Five out of 5 muscle strength in the arms and legs. Normal speech. PSYCHIATRIC: Appropriate mood and affect; insight and judgment normal. Results - Labs CBC & Chem 7: 02/27/18 06:00 02/27/18 06:00 Microbiology 02/25/18 17:25 Fluid - Boubacar Go Drain Gram Stain - Final 02/25/18 17:25 Fluid - Boubacar Go Drain Body Fluid Culture - Final No growth in 72 hours (aerobically and anaerobically ) - Procedures Laparoscopic cholecystectomy Assessment and Plan - Assessment (1) Sepsis Code(s): A41.9 - Sepsis, unspecified organism Status: Acute (2) Cholecystitis Code(s): K81.9 - Cholecystitis, unspecified Status: Acute - Plan 82-year-old man with: Gangrenous cholecystitis Status post lap cholecystectomy Management per general surgery, continue to monitor MARVIN drain output Currently on Azactam, Flagyl Continue to monitor LFTs however for repeat MRCP or ERCP. Appreciate input from GI who signed off 02/24/18 Likely discharge on 03/01/18 Cirrhosis/ascites intraoperatively Continue with Lasix and Aldactone; monitor output of MARVIN drain Outpatient follow-up with GI Alcohol cessation strongly advised Hypertension Currently normotensive on Toprol-XL Severe sepsis: Resolved Gallstone pancreatitis: Resolved PT to treat and eval DVT prophylaxis with SCD. Discharge Planning: Discharge likely next week early Thursday. (1) Sepsis Qualifiers: Sepsis type: sepsis due to unspecified organism Qualified Code(s): A41.9 - Sepsis, unspecified organism
[2018-02-28 21:07] VITALS: RESP 18
[2018-03-01] MEDS: Aztreonam Inj 2 GM in Sodium Chloride 0.9% Inj 100 ML IV.SIG SCH (03:45)
--- NOTE | 2018-03-01 08:12 | P.PNGS ---
Subjective Interval history: Resting in bed Had uneventful weekend Good appetite Says his stools are still very loose Physical Exam Vital signs: Vital Signs 02/28/18 12:00 02/28/18 16:00 02/28/18 20:00 Temperature 97.4 F L 98.2 F 97.4 F L Pulse Rate 79 83 95 H Respiratory Rate 20 19 18 Blood Pressure 117/61 115/64 134/70 Pulse Oximetry 95 95 91 L 03/01/18 00:00 Temperature 96.0 F L Pulse Rate 103 H Respiratory Rate 18 Blood Pressure 108/63 Pulse Oximetry 94 L Intake & Output 02/28/18 03/01/18 03/01/18 18:59 06:59 18:59 Intake Total 1160 / 1160 800 / 800 Output Total 1570 / 1570 570 / 570 Balance -410 / -410 230 / 230 Weight 71.3 kg Intake: IV 200 / 200 400 / 400 Azactam Inj 2 GM In NS Inj 100 100 / 100 200 / 200 ML @ 200 mls/hr IV.SIG Q8H DOTTY Rx#:[id number] Flagyl 500 MG Inj 100 ML @ 100 100 / 100 200 / 200 mls/hr IV.SIG Q8H DOTTY Rx#: [id number] Oral 960 / 960 400 / 400 Output: Urine 1300 / 1300 450 / 450 Wound Drainage 270 / 270 120 / 120 # 1 Abdomen MARVIN Drain 95 / 95 Right Abdomen 270 / 270 25 / 25 Other: # Incontinent Voids 3 # Urine Diapers 3 Date of Last Bowel Movement 02/22/18 # Incontinent Bowel Movements 2 Narrative: Alert and awake Abd: lap sites c/d/i with some mild bruising; MARVIN in place with clear fluid - Routine Respiratory Exam Present: CTA bilaterally - Routine Abdominal Exam Present: soft, surgical scars (steri-strips clean and dry), drain ( serosanguinous, clear now, with output significantly less) Results - Labs 02/27/18 06:00 02/27/18 06:00 - Imaging Imaging: ITS Impressions Abdomen X-Ray 02/18/18 16:09 CONCLUSION: Unremarkable bowel gas pattern. Abdomen/Pelvis CT 02/18/18 18:05 CONCLUSION: 1. Right upper quadrant acute inflammatory changes that appear to represent cholecystitis, duodenitis or a combination of the two. 2. There is small ascites. Nothing organized or loculated. 3. No bowel obstruction. 4. [place] diverticulosis of the sigmoid colon without evidence of diverticulitis. 5. 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 No aneurysm. Gallbladder Ultrasound 02/18/18 20:35 CONCLUSION: Abnormal gallbladder with wall thickening and pericholecystic fluid. Acute cholecystitis possible in the proper clinical setting. No stones are demonstrated. No evidence of biliary obstruction. Cholangiopancreatography MRI 02/19/18 00:00 CONCLUSION: 1. Diffuse dilatation of the common bile duct measuring 9 mm with possible filling defect in the distal common bile duct. ERCP would be helpful for further evaluation and possible treatment if clinically indicated. 2. Mildly thickened gallbladder wall with minimal pericholecystic fluid. No definite gallstone identified. 3. Minimal ascites. Assessment and Plan - Assessment (1) Abdominal pain Code(s): R10.9 - Unspecified abdominal pain Status: Acute Plan: 82 year old male with RUQ tenderness; elevated LFTs; elevated lipase -s/p lap carly; gangrenous cholecystitis -Regular diet -MARVIN drain output drastically improved -Continue diuretics -GS clear for DC to rehab with MARVIN drain -Rx for antibiotics, Phyllis and diuretics on chart -Follow up with Dr. Mccoy next Thursday at 4PM As above; discussed with patient Will continue diuretics for now Stable for transfer to rehab; will check stool for C diff prior to transfer The exam, history, and the medical decision-making described in the above note were completed with the assistance of the mid-level provider. I reviewed and agree with the findings presented. I attest that I had a [id number] encounter with the patient on the same day, and personally performed and documented my assessment and findings in the medical record.
[2018-03-01] MEDS: Furosemide 20 MG Tablet PO SCH (08:26)
[2018-03-01] MEDS: Spironolactone 25 MG Tablet PO SCH (08:26)
[2018-03-01] MEDS: Metoprolol Tartrate 50 MG Tablet PO SCH (08:26)
[2018-03-01] MEDS: Famotidine 20 MG Tablet PO SCH (08:26)
[2018-03-01] MEDS: Senna/Docusate Sodium 8.6/50 MG Tablet PO SCH (08:27)
[2018-03-01 08:37] VITALS: BP 124/73; PULSE 109; TEMP 99; O2SAT 95
[2018-03-01 09:57] LABS: Baso # (Auto) 0.3 th/mm3 (0.0-0.2); Baso % (Auto) 1.8 % (0.0-2.0); Eos # (Auto) 0.3 th/mm3 (0.0-0.4); Eos % (Auto) 1.8 % (0.0-4.0); Hematocrit 41.2 % (39.0-51.0); Hemoglobin 14.4 gm/dL (13.0-17.0); Lymph # (Auto) 1.9 th/mm3 (1.0-4.8); Lymph % (Auto) 13.4 % (9.0-44.0); Mean Corpuscular Hemoglobin 35.3 pg (27.0-34.0); Mean Corpuscular Volume 100.9 fL (80.0-100.0); Mean Platelet Volume 8.6 fL (7.0-11.0); Mono # (Auto) 1.1 th/mm3 (0.0-0.9); Mono % (Auto) 7.6 % (0.0-8.0); Neut # (Auto) 10.7 th/mm3 (1.8-7.7); Neut % (Auto) 75.4 % (16.0-70.0); Platelet Count 320 th/mm3 (150-450); Red Blood Count 4.09 mil/mm3 (4.50-5.90); Red Cell Distribution Width 13.8 % (11.6-17.2); White Blood Count 14.3 th/mm3 (4.0-11.0)
[2018-03-01 10:03] LABS: Chloride 98 meq/L (98-107); Potassium 3.9 meq/L (3.5-5.1); Sodium 134 meq/L (136-145)
[2018-03-01 10:06] LABS: Albumin 2.3 g/dL (3.4-5.0); Anion Gap 8 meq/L (5-15); Calcium 8.1 mg/dL (8.5-10.1); Carbon Dioxide 27.8 meq/L (21.0-32.0); Glucose,Random 136 mg/dL (74-106)
[2018-03-01 10:07] LABS: Blood Urea Nitrogen 20 mg/dL (7-18)
[2018-03-01 10:09] LABS: Alanine Aminotransferase 41 U/L (12-78)
[2018-03-01 10:10] LABS: Glomerular Filtration Rate 76 mL/min (>89)
[2018-03-01 10:11] LABS: Total Protein 5.5 g/dL (6.4-8.2)
[2018-03-01 10:12] LABS: Alkaline Phosphatase 280 U/L (45-117)
--- NOTE | 2018-03-01 10:13 | P.PN ---
Subjective Interval history: Follow-up gangrenous cholecystitis February 24, 2018-patient seen and examined, denies any abdominal pain. No nausea no vomiting with p.o. intake. High MARVIN drain output. LFTs trending down. Afebrile February 25, 2018-patient seen and examined, denies any complaint this morning.Continues to have High MARVIN drain output. Case discussed with LIANET Omer for General Surgery February 26, 2018-patient seen and examined, tolerated p.o. this morning, no acute event overnight. Still with high MARVIN drain output. Afebrile. February 27, 2018-patient seen and examined, stable, afebrile, no complaint of abdominal or chest pain. February 28, 2018-patient seen and examined, MARVIN drain output decreasing. Patient stable. No acute event overnight. Afebrile. March 01, 2018-patient seen and examined, reports diarrheal episode, decrease MARVIN drain output. Otherwise patient stable. Physical Exam Vital signs: Vital Signs 02/28/18 12:00 02/28/18 16:00 02/28/18 20:00 Temperature 97.4 F L 98.2 F 97.4 F L Pulse Rate 79 83 95 H Respiratory Rate 20 19 18 Blood Pressure 117/61 115/64 134/70 Pulse Oximetry 95 95 91 L 03/01/18 00:00 03/01/18 08:00 Temperature 96.0 F L 99 F Pulse Rate 103 H 109 H Respiratory Rate 18 18 Blood Pressure 108/63 124/73 Pulse Oximetry 94 L 95 Intake & Output 02/28/18 03/01/18 03/01/18 18:59 06:59 18:59 Intake Total 1160 / 1160 800 / 800 Output Total 1570 / 1570 570 / 570 Balance -410 / -410 230 / 230 Weight 71.3 kg Intake: IV 200 / 200 400 / 400 Azactam Inj 2 GM In NS Inj 100 100 / 100 200 / 200 ML @ 200 mls/hr IV.SIG Q8H DOTTY Rx#:[id number] Flagyl 500 MG Inj 100 ML @ 100 100 / 100 200 / 200 mls/hr IV.SIG Q8H DOTTY Rx#: [id number] Oral 960 / 960 400 / 400 Output: Urine 1300 / 1300 450 / 450 Wound Drainage 270 / 270 120 / 120 # 1 Abdomen MARVIN Drain 95 / 95 Right Abdomen 270 / 270 25 / 25 Other: # Incontinent Voids 3 # Urine Diapers 3 Date of Last Bowel Movement 02/22/18 03/01/18 # Incontinent Bowel Movements 2 Narrative: GENERAL: NAD SKIN: Warm and dry. HEAD: Atraumatic. Normocephalic. EYES: Pupils equal and round. No scleral icterus. No injection or drainage. ENT: No nasal bleeding or discharge. Mucous membranes pink and moist. NECK: Trachea midline. No JVD. CARDIOVASCULAR: Regular rate and rhythm. RESPIRATORY: No accessory muscle use. Clear to auscultation. Breath sounds equal bilaterally. GASTROINTESTINAL: Abdomen soft, non-tender, nondistended. Hepatic and splenic margins not palpable. MARVIN drain in place with clear fluid MUSCULOSKELETAL: Extremities without clubbing, cyanosis, or edema. No obvious deformities. NEUROLOGICAL: Awake and alert. No obvious cranial nerve deficits. Motor grossly within normal limits. Five out of 5 muscle strength in the arms and legs. Normal speech. PSYCHIATRIC: Appropriate mood and affect; insight and judgment normal. Results - Labs CBC & Chem 7: 03/01/18 09:40 03/01/18 09:40 Laboratory Results - last 24 hr 03/01/18 03/01/18 09:40 09:40 CBC w Diff Auto diff final WBC 14.3 H RBC 4.09 L Hgb 14.4 Hct 41.2 MCV 100.9 H MCH 35.3 H MCHC 35.0 RDW 13.8 Plt Count 320 D MPV 8.6 Neut % (Auto) 75.4 H Lymph % (Auto) 13.4 [place] % (Auto) 7.6 Eos % (Auto) 1.8 Baso % (Auto) 1.8 Neut # (Auto) 10.7 H Lymph # (Auto) 1.9 [place] # (Auto) 1.1 H Eos # (Auto) 0.3 Baso # (Auto) 0.3 H WBC Differential . Differential Comment . Sodium 134 L Potassium 3.9 Chloride 98 Carbon Dioxide 27.8 Anion Gap 8 BUN 20 H Creatinine 0.95 Estimated GFR 76 L Random Glucose 136 H Calcium 8.1 L ALT 41 Albumin 2.3 L Microbiology 02/25/18 17:25 Fluid - Boubacar Go Drain Gram Stain - Final 02/25/18 17:25 Fluid - Boubacar Go Drain Body Fluid Culture - Final No growth in 72 hours (aerobically and anaerobically ) - Procedures Laparoscopic cholecystectomy Assessment and Plan - Assessment (1) Sepsis Code(s): A41.9 - Sepsis, unspecified organism Status: Acute (2) Cholecystitis Code(s): K81.9 - Cholecystitis, unspecified Status: Acute - Plan 82-year-old man with: Gangrenous cholecystitis Status post lap cholecystectomy Management per general surgery, continue to monitor MARVIN drain output Currently on Azactam, Flagyl. Will discontinue Azactam. Patient will be discharged on p.o. Flagyl and Cipro. Continue to monitor LFTs however for repeat MRCP or ERCP. Appreciate input from GI who signed off 02/24/18 Cirrhosis/ascites intraoperatively-improving Continue with Lasix and Aldactone; monitor output of MARVIN drain Outpatient follow-up with GI Alcohol cessation strongly advised Diarrhea Rule out C. difficile and treat accordingly Hypertension Currently normotensive on Toprol-XL Severe sepsis: Resolved Gallstone pancreatitis: Resolved PT to treat and eval DVT prophylaxis with SCD. Discharge Planning: Discharge likely next week early Thursday. (1) Sepsis Qualifiers: Sepsis type: sepsis due to unspecified organism Qualified Code(s): A41.9 - Sepsis, unspecified organism
[2018-03-01 10:14] LABS: Aspartate Aminotransferase 52 U/L (15-37)
--- NOTE | 2018-03-01 10:16 | P.DS ---
Date of admission: 02/18/18 20:32 Primary care physician: Terra Patel MD Brief History from admission: This is a 82-year-old male with a history of prostate cancer status post surgery , iron deficiency anemia, GERD, gastric varices, gout, hypertension, CAD status post IL and hyperlipidemia. He presents to the emergency department because of abdominal pain. States about an hour after having brunch, he developed moderate to severe constant crampy bilateral infra umbilical pain that lasted for 12 hours associated with a 6 episodes of vomiting. No precipitating or alleviating factors. No fever, chills, UTI symptoms, constipation and diarrhea. ER workup shows abdominal CT showing right upper quadrant acute inflammatory changes that appeared to represent cholecystitis or duodenitis or a combination. Gallbladder sonogram shows abnormal gallbladder wall pericholecystic fluid. Also has abnormal liver function tests with total bilirubin 3.2, AST of 112, ALT of 83 alkaline phosphatase of 250 and lipase of 3728. Patient has been started on IV fluids and IV aztreonam and Flagyl. At this time, patient still complains of abdominal pain but improved nausea. Patient states he developed rectal bleeding in May of this year and his aspirin, Plavix and Zocor were reduced. He underwent colonoscopy which showed diverticulosis performed by Dr. Pena. He was also referred to hematology Dr. Roca and currently on iron and B12 shots. Patient also received beta metal stent late last year since then patient has not had any cardiac symptoms his director machine is Dr. Hardy DS: Diagnosis - Discharge Diagnosis (1) Sepsis Status: Acute (2) Cholecystitis Status: Acute DS: Medications - Discharge Medications Prescriptions: ciprofloxacin HCl [Cipro] 500 mg PO Q12H 7 Days #14 tab furosemide 40 mg PO BID@0900,1800 10 Days tab hydrocodone-acetaminophen [Ucon] 1 tab PO Q4H PRN #15 tab PRN Reason: acute post op pain exception metronidazole [Flagyl] 500 mg PO TID 7 Days #42 tab spironolactone [Aldactone] 50 mg PO TID 10 Days #60 tab DS: Summary Hospital Course: Patient admitted and diagnosed with gangrenous cholecystitis for which general surgery was consulted and he underwent lap cholecystectomy. However patient was found to have ascites intraoperatively for which he was started on IV diuretics with monitoring of MARVIN drain. On admission, patient was also found to have sepsis and also pancreatitis for which gastroenterology was consulted and he underwent MRCP followed by ERCP. Patient was also continued on IV antibiotics throughout hospitalization. Treatment for other chronic medical conditions were continued. DVT and GI prophylaxis were provided. Physical therapy was consulted. Prior to discharge, patient's conditions improved and vitals remained stable. - Time Spent with Patient Total time spent providing and/or coordinating discharge services: Greater than 30 minutes - Quality: VTE Deep Vein Thrombosis/Pulmonary Embolism Present on Admission: No Exam Vital signs: Vital Signs 02/28/18 12:00 02/28/18 16:00 02/28/18 20:00 Temperature 97.4 F L 98.2 F 97.4 F L Pulse Rate 79 83 95 H Respiratory Rate 20 19 18 Blood Pressure 117/61 115/64 134/70 Pulse Oximetry 95 95 91 L 03/01/18 00:00 03/01/18 08:00 Temperature 96.0 F L 99 F Pulse Rate 103 H 109 H Respiratory Rate 18 18 Blood Pressure 108/63 124/73 Pulse Oximetry 94 L 95 Intake & Output 02/28/18 03/01/18 03/01/18 18:59 06:59 18:59 Intake Total 1160 / 1160 800 / 800 Output Total 1570 / 1570 570 / 570 Balance -410 / -410 230 / 230 Weight 71.3 kg Intake: IV 200 / 200 400 / 400 Azactam Inj 2 GM In NS Inj 100 100 / 100 200 / 200 ML @ 200 mls/hr IV.SIG Q8H DOTTY Rx#:[id number] Flagyl 500 MG Inj 100 ML @ 100 100 / 100 200 / 200 mls/hr IV.SIG Q8H DOTTY Rx#: [id number] Oral 960 / 960 400 / 400 Output: Urine 1300 / 1300 450 / 450 Wound Drainage 270 / 270 120 / 120 # 1 Abdomen MARVIN Drain 95 / 95 Right Abdomen 270 / 270 25 / 25 Other: # Incontinent Voids 3 # Urine Diapers 3 Date of Last Bowel Movement 02/22/18 03/01/18 # Incontinent Bowel Movements 2 Narrative: GENERAL: NAD SKIN: Warm and dry. HEAD: Atraumatic. Normocephalic. EYES: Pupils equal and round. No scleral icterus. No injection or drainage. ENT: No nasal bleeding or discharge. Mucous membranes pink and moist. NECK: Trachea midline. No JVD. CARDIOVASCULAR: Regular rate and rhythm. RESPIRATORY: No accessory muscle use. Clear to auscultation. Breath sounds equal bilaterally. GASTROINTESTINAL: Abdomen soft, non-tender, nondistended. Hepatic and splenic margins not palpable. MARVIN drain in place with clear fluid MUSCULOSKELETAL: Extremities without clubbing, cyanosis, or edema. No obvious deformities. NEUROLOGICAL: Awake and alert. No obvious cranial nerve deficits. Motor grossly within normal limits. Five out of 5 muscle strength in the arms and legs. Normal speech. PSYCHIATRIC: Appropriate mood and affect; insight and judgment normal. Results Procedures completed during hospitalization: Laparoscopic cholecystectomy Completed studies during hospitalization: Pending at discharge 02/22/18 13:35 Surgical [PTH] Routine Labs on day of discharge: Labs from last 24 hours 03/01/18 03/01/18 09:40 09:40 CBC w Diff Auto diff final WBC 14.3 H RBC 4.09 L Hgb 14.4 Hct 41.2 MCV 100.9 H MCH 35.3 H MCHC 35.0 RDW 13.8 Plt Count 320 D MPV 8.6 Neut % (Auto) 75.4 H Lymph % (Auto) 13.4 Worth % (Auto) 7.6 Eos % (Auto) 1.8 Baso % (Auto) 1.8 Neut # (Auto) 10.7 H Lymph # (Auto) 1.9 Worth # (Auto) 1.1 H Eos # (Auto) 0.3 Baso # (Auto) 0.3 H WBC Differential . Differential Comment . Sodium 134 L Potassium 3.9 Chloride 98 Carbon Dioxide 27.8 Anion Gap 8 BUN 20 H Creatinine 0.95 Estimated GFR 76 L Random Glucose 136 H Calcium 8.1 L Total Bilirubin 0.6 AST Pending ALT 41 Alkaline Phosphatase 280 H Total Protein 5.5 L D Albumin 2.3 L - Impressions ITS Impressions Abdomen X-Ray 02/18/18 16:09 CONCLUSION: Unremarkable bowel gas pattern. Abdomen/Pelvis CT 02/18/18 18:05 CONCLUSION: 1. Right upper quadrant acute inflammatory changes that appear to represent cholecystitis, duodenitis or a combination of the two. 2. There is small ascites. Nothing organized or loculated. 3. No bowel obstruction. 4. Florid diverticulosis of the sigmoid colon without evidence of diverticulitis. 5. 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 No aneurysm. Gallbladder Ultrasound 02/18/18 20:35 CONCLUSION: Abnormal gallbladder with wall thickening and pericholecystic fluid. Acute cholecystitis possible in the proper clinical setting. No stones are demonstrated. No evidence of biliary obstruction. Cholangiopancreatography MRI 02/19/18 00:00 CONCLUSION: 1. Diffuse dilatation of the common bile duct measuring 9 mm with possible filling defect in the distal common bile duct. ERCP would be helpful for further evaluation and possible treatment if clinically indicated. 2. Mildly thickened gallbladder wall with minimal pericholecystic fluid. No definite gallstone identified. 3. Minimal ascites. Discharge Plan - Discharge Disposition Patient Disposition: Discharge to SNF - Discharge Condition Condition: Stable - Discharge Order Discharge Orders: Discharge Order (Routine); Ordered 03/01/18 Ordered By: Cali Barraza - Physicians Team Primary Care Provider: Terra Patel Attending Provider: Cali Barraza Other Providers: Jose Washington MD ; Sivakumar Reddy MD ; [facility]
== END 2018-03-01 14:29 ==
LOC: PHED 12:49 → PHEDA 20:32 → PHICU 22:47 → PH3 02-21 06:41
PROVIDERS: ADMIT Hospitalist; ATTEND Hospitalist